=== PATIENT | female | born 1970 | race Caucasian/White ===

== ENCOUNTER → 2022-09-28 | Outpatient (CLI) | payer OTHER ==
--- NOTE | 2022-09-29 10:58 | PE ---
EXAMINATION TYPE: PET CT fusion skull to thigh DATE OF EXAM: 09/28/2022 COMPARISON: Outside Low-dose lung screening CT October 03, 2021 HISTORY: Solitary pulmonary nodule, abnormal CT. TECHNIQUE: Following the intravenous administration of 11.25 mCi of F-18 FDG, whole body images are performed from the skull base to the midthigh. Images are reviewed on the computer in the coronal, a xial, and sagittal planes. Reconstructed rotating images are created on independent workstation and reviewed on the computer. A localization and attenuation correction CT is performed in conjunction with the PET scan. Blood glucose level equals 137 SCAN: Initial Scan FINDINGS: SKULL BASE AND NECK: No areas of abnormal hypermetabolic uptake. CHEST, MEDIASTINUM, AND HILAR REGION: Mild to moderate underlying emphysematous change redemonstrated with central moderate parenchymal fibrosis redemonstrated. No hypermetabolic pulmonary nodules or ma sses. There is 1.1 x 0.9 cm anterior left mid lung nodule or nodular scarring axial image 73 there is ametabolic. ABDOMEN AND PELVIS: No hypermetabolic adrenal masses. Normal excretion. No areas of abnormal hypermet abolic uptake. OSSEOUS STRUCTURES: No areas of abnormal hypermetabolic uptake. OTHER CT: Nasal septum is deviated to the right of midline. There is three-vessel moderate to severe coronary artery calcification and/or stents redemonstrated. Mild cardiomegaly is present. Prominent p ulmonary arteries consistent with underlying pulmonary artery hypertension are noted. Uterus surgically absent or markedly atrophic. IMPRESSION: No suspicious hypermetabolic pulmonary nodules or masses. Emphysematous and parenchymal f ibrotic changes in the lungs are present.
== END | disposition home or self-care (01) ==
LOC: RADPETMAIN 11:56
PROVIDERS: ATTEND Internal Medicine Critical Care Medicine
DX: J43.9 Emphysema, unspecified (principal); J84.10 Pulmonary fibrosis, unspecified; R91.1 Solitary pulmonary nodule
CPT/HCPCS: 78815; A9552

== ENCOUNTER → 2024-04-03 | Outpatient (CLI) | payer OTHER ==
--- NOTE | 2024-04-03 13:13 | XR ---
EXAMINATION TYPE: XR wrist complete RT DATE OF EXAM: 04/03/2024 CLINICAL HISTORY: pain TECHNIQUE: Frontal, lateral and oblique images of the right wrist are obtained. COMPARISON: None. FINDINGS: Distal radial fracture with intra-articular extension and displacement of 2 mm. Soft tissue swelling noted. No additional fractures seen. The joint spaces appear within normal limits. IMPRESSION: Mildly comminuted distal radial fracture. [facility], , 04/03/2024 1:10 PM
== END | disposition home or self-care (01) ==
LOC: RADXRMAIN 12:51
PROVIDERS: ATTEND Family Medicine
DX: S52.591A Other fractures of lower end of right radius, initial encounter for closed fracture (principal); W19.XXXA Unspecified fall, initial encounter; T14.90XA Injury, unspecified, initial encounter

== ENCOUNTER 2024-05-07 17:31 | Inpatient (IN) | payer OTHER ==
--- NOTE | 2024-05-07 18:00 | ED ---
General Adult HPI - General Chief complaint: Chest Pain Stated complaint: jaw pain Time Seen by Provider: 05/07/24 17:35 Source: patient, RN notes reviewed, old records reviewed Mode of arrival: ambulatory Limitations: no limitations - History of Present Illness Initial comments: This is a 54-year-old female she states 4 days ago she started having inte rmittent jaw pain and neck pain which is very consistent with the pain she has had in her previous heart attacks. Patient states it comes and lasts anywhere from 5 to 10 minutes to half an hour. Patient denies shortness of breath. Patient states there is a little bit of anterior chest discomfort. Patient states currently she feels only very minimal jaw pain. Patient denies any diaphoretic episode. Patient has nausea vomiting diarrhea. Patient has any fever chills or cough. Patient has any back pain. - Related Data Allergies Allergy/AdvReac Type Severity Reaction Status Date / Time cephalexin [From Keflex] Allergy Anaphylaxis Verified 05/07/24 17:36 Iodinated Contrast Media Allergy Anaphylaxis Verified 05/07/24 17:36 Review of Systems ROS Statement: Those systems with pertinent positive or pertinent negative responses have been documented in the HPI. ROS Other: All systems not noted in ROS Statement are negative. Past Medical History Past Medical History: Diabetes Mellitus, Hypertension History of Any Multi-Drug Resistant Organisms: None Reported Past Surgical History: Ear Surgery, Hysterectomy Additional Past Surgical History / Comment(s): 2 cardiac stents Past Psychological History: No Psychological Hx Reported Smoking Status: Current every day smoker Past Alcohol Use History: None Reported Past Drug Use History: None Reported, Marijuana General Exam - General Exam Comments Initial Comments: GENERAL: Patient is well-developed and well-nourished. Patient is nontoxic and well- hydrated and is in mild distress. ENT: Neck is soft and supple. No significant lymphadenopathy is noted. Oropharynx is clear. Moist mucous membranes. Neck has full range of motion without eliciting any pain. EYES: The sclera were anicteric and conjunctiva were pink and moist. Extraocular movements were intact and pupils were equal round and reactive to light. Eyelids were unremarkable. PULMONARY: Unlabored respirations. Good breath sounds bilaterally. No audible rales rho nchi or wheezing was noted. CARDIOVASCULAR: There is a regular rate and rhythm without any murmurs gallops or rubs. ABDOMEN: Soft and nontender with normal bowel sounds. SKIN: Skin is clear with no lesions or rashes and otherwise unremarkable. NEUROLOGIC: Patient is alert and oriented x3. Cranial nerves II through XII are grossly intact. Motor and sensory are also intact. Normal speech, volume and content. Symmetrical smile. MUSCULOSKELETAL: Normal extremities with adequate strength and full range of motion. LYMPHATICS: No significant lymphadenopathy is noted PSYCHIATRIC: Normal psychiatric evaluation. Limitations: no limitations Course Vital Signs 05/07/24 05/07/24 05/07/24 17:32 17:35 18:29 Temperature 98.7 F Pulse Rate 101 H 71 88 Respiratory 20 17 17 Rate Blood Pressure 159/87 123/71 120/81 O2 Sat by Pulse 97 94 L 93 L Oximetry Medical Decision Making - Medical Decision Making EKG is interpreted by myself. EKG shows sinus rhythm at 92 bpm CO interval 156 QRS is 101 QT interval is 349 QTc is 398. Patient's EKG shows no ST segment ovation or depression. Was pt. sent in by a medical professional or institution (, PA, CIGARET[employer] MACHINES MECHANIC, urgent care, hospital, or penitentiary...) When possible be specific @ -No Did you speak to anyone other than the patient for history (EMS, parent, family, police, friend...)? What history was obtained from this source @ -No Did you review nursing and triage notes (agree or disagree)? Why? @ -I reviewed and agree with nursing and triage notes Were old charts reviewed (outside hosp., previous admission, EMS record, old EKG, old radiological studies, urgent care reports/EKG's, penitentiary records)? Report findings @ -No old charts were reviewed Differential Diagnosis? @ -Differential Chest Pain: Stable Angina, Unstable Angina, STEMI, NSTEMI Aortic Dissection, Pneumothorax, M usculoskeletal, Esophageal Spasm GERD, Cholecystitis, Pancreatitis, Zoster, this is not meant to be an all-inclusive list. EKG interpreted by me (3pts min.). @ -As above X-rays interpreted by me (1pt min.). @ -Chest x-ray shows no acute normality CT interpreted by me (1pt min.). @ -None done U/S interpreted by me (1pt. min.). @ -None done What testing was considered but not performed or refused? (CT, X-rays, U/S, labs)? Why? @ -None What meds were considered but not given or refused? Why? @ -None Did you discuss the management of the patient with other professionals (professionals i.e. DrJf, PA, CIGARET[employer] MACH[employer] MECHANIC, lab, RT, psych nurse, social worker clinical, inspector shells, teacher, aoc airspace control officer, major case detective)? Give summary @ -I spoke with Dr. Edmondson he agreed to admit the patient admit the patient Was smoking cessation discussed for >3mins.? @ -No Was critical care preformed (if so, how long)? @ -35 minutes Were there social determinants of health that impacted care today? How? (Homelessness, low income, unemployed, alcoholism, drug addiction, transportation, low edu. Level, literacy, decrease access to med. care, group home, rehab)? @ -No Was there de-escalation of care discussed even if they declined (Discuss DNR or withdrawal of care, Hospice)? DNR status @ -No What co-morbidities impacted this encounter? (DM, HTN, Smoking, COPD, CAD, Cancer, CVA, ARF, Chemo, Hep., AIDS, mental health diagnosis, sleep apnea, morbid obesity)? @ -None Was patient admitted / discharged? Hospital course, mention meds given and route, prescriptions, significant lab abnormalities, going to OR and other pertinent info. @ -Patient was not having chest pain when I admitted her labs showed an elevated troponin. Started patient on heparin. I spoke with Dr. Edmondson he agreed admit the patient admit the patient I consulted cardiology Undiagnosed new problem with uncertain prognosis? @ -No Drug Therapy requiring intensive monitoring for toxicity (Heparin, Nitro, Insulin, Cardizem)? @ -No Were any procedures done? @ -No Diagnosis/symptom? @ -Unstable angina Acute, or Chronic, or Acute on Chronic? @ -Acute Uncomplicated (without systemic symptoms) or Complicated (systemic symptoms)? @ -Complicated Side effects of treatment? @ -No Exacerbation, Progression, or Severe Exacerbation? @ -No Poses a threat to life or bodily function? How? (Chest pain, USA, GA, pneumonia, PE, COPD, DKA, ARF, appy, cholecystitis, CVA, Diverticulitis, Homicidal, Suicidal, threat to staff... and all critical care pts) @ -This can lead to an GA and endorgan dysfunction - Lab Data Result diagrams: 05/07/24 17:48 11/07/24 17:48 Lab Results 05/07/24 05/07/24 05/07/24 Range/Units 17:48 17:48 17:48 WBC 12.1 H (3.8-10.6) k/uL RBC 5.54 H (3.80-5.40) m/uL Hgb 15.6 (11.4-16.0) gm/dL Hct 49.3 H (34.0-46.0) % MCV 89.1 (80.0-100.0) fL MCH 28.1 (25.0-35.0) pg MCHC 31.6 (31.0-37.0) g/dL RDW 14.5 (11.5-15.5) % Plt Count 176 (150-450) k/uL MPV 7.5 Neutrophils % 67 % Lymphocytes % 26 % Monocytes % 5 % Eosinophils % 1 % Basophils % 0 % Neutrophils # 8.2 H (1.3-7.7) k/uL Lymphocytes # 3.1 (1.0-4.8) k/uL Monocytes # 0.5 (0-1.0) k/uL Eosinophils # 0.2 (0-0.7) k/uL Basophils # 0.0 (0-0.2) k/uL Hypochromasia Slight PT 10.3 (10.0-12.5) sec INR 0.9 (<1.2) APTT 28.3 (22.0-30.0) sec Sodium 139 (137-145) mmol/L Potassium 3.7 (3.5-5.1) mmol/L Chloride 105 (98-107) mmol/L Carbon Dioxide 28 (22-30) mmol/L Anion Gap 6 mmol/L BUN 18 H (7-17) mg/dL Creatinine 0.68 (0.52-1.04) mg/dL Est GFR (CKD-EPI)AfAm >90 (>60 ml/min/1.73 sqM) Est GFR (CKD-EPI)NonAf >90 (>60 ml/min/1.73 sqM) Glucose 104 H (74-99) mg/dL Calcium 9.3 (8.4-10.2) mg/dL Magnesium 2.2 (1.6-2.3) mg/dL Total Bilirubin 0.7 (0.2-1.3) mg/dL AST 25 (14-36) U/L ALT 21 (4-34) U/L Alkaline Phosphatase 100 (38-126) U/L Troponin I (0.000-0.034) ng/mL Total Protein 6.7 (6.3-8.2) g/dL Albumin 4.1 (3.5-5.0) g/dL 05/07/24 Range/Units 17:48 WBC (3.8-10.6) k/uL RBC (3.80-5.40) m/uL Hgb (11.4-16.0) gm/dL Hct (34.0-46.0) % MCV (80.0-100.0) fL MCH (25.0-35.0) pg MCHC (31.0-37.0) g/dL RDW (11.5-15.5) % Plt Count (150-450) k/uL MPV Neutrophils % % Lymphocytes % % Monocytes % % Eosinophils % % Basophils % % Neutrophils # (1.3-7.7) k/uL Lymphocytes # (1.0-4.8) k/uL Monocytes # (0-1.0) k/uL Eosinophils # (0-0.7) k/uL Basophils # (0-0.2) k/uL Hypochromasia PT (10.0-12.5) sec INR (<1.2) APTT (22.0-30.0) sec Sodium (137-145) mmol/L Potassium (3.5-5.1) mmol/L Chloride (98-107) mmol/L Carbon Dioxide (22-30) mmol/L Anion Gap mmol/L BUN (7-17) mg/dL Creatinine (0.52-1.04) mg/dL Est GFR (CKD-EPI)AfAm (>60 ml/min/1.73 sqM) Est GFR (CKD-EPI)NonAf (>60 ml/min/1.73 sqM) Glucose (74-99) mg/dL Calcium (8.4-10.2) mg/dL Magnesium (1.6-2.3) mg/dL Total Bilirubin (0.2-1.3) mg/dL AST (14-36) U/L ALT (4-34) U/L Alkaline Phosphatase (38-126) U/L Troponin I 0.107 H* (0.000-0.034) ng/mL Total Protein (6.3-8.2) g/dL Albumin (3.5-5.0) g/dL Critical Care Time Critical Care Time: Yes Total Critical Care Time: 35 Disposition Clinical Impression: Unstable angina pectoris Disposition: ADMITTED IP TO THIS HOSP Referrals: Justin Edmondson MD [Primary Care Provider] - 1-2 days Time of Disposition: 19:32
[2024-05-07] MEDS: ASPIRIN 81 MG PO STA (18:02)
[2024-05-07] MEDS: NITROGLYCERIN OINT 1 INCH/GM PACKET TOPICAL STA (18:02)
[2024-05-07 18:14] LABS: Basophils % (A) 0 %; Eosinophils # (A) 0.2 k/uL (0-0.7); Eosinophils % (A) 1 %; HCT 49.3 % (34.0-46.0); HGB 15.6 gm/dL (11.4-16.0); Hypochromasia Slight; Lymphocytes # (A) 3.1 k/uL (1.0-4.8); Lymphocytes % (A) 26 %; MCH 28.1 pg (25.0-35.0); MCHC 31.6 g/dL (31.0-37.0); MCV 89.1 fL (80.0-100.0); Mean Platelet Volume 7.5; Monocytes # (A) 0.5 k/uL (0-1.0); Monocytes % (A) 5 %; Neutrophils # (A) 8.2 k/uL (1.3-7.7); Neutrophils % (A) 67 %; Platelet Count 176 k/uL (150-450); RBC 5.54 m/uL (3.80-5.40); RDW 14.5 % (11.5-15.5); WBC 12.1 k/uL (3.8-10.6)
--- NOTE | 2024-05-07 18:25 | XR ---
EXAMINATION TYPE: XR chest 2V DATE OF EXAM: 05/07/2024 6:13 PM COMPARISON: None. CLINICAL INDICATION: Female, 54 years old with history of Chest Pain, TECHNIQUE: XR chest 2V view(s) obtained. FINDINGS: The heart size is normal. The pulmonary vasculature is somewhat prominent. Mild bibasilar infiltrates are present. Correlate for atelectasis or pneumonia. Atypical pulmonary ed loren could be considered. IMPRESSION: 1. Mild bibasilar infiltrates. Correlate for atelectasis or pneumonia. Pulmonary edema could be consi dered. [facility], , 05/07/2024 6:22 PM
[2024-05-07 18:27] LABS: ALT 21 U/L (4-34); AST 25 U/L (14-36); African American GFR (CKD) >90 (>60 ml/min/1.73 sqM); Albumin 4.1 g/dL (3.5-5.0); Alkaline Phosphatase 100 U/L (38-126); Anion Gap 6 mmol/L; Blood Urea Nitrogen 18 mg/dL (7-17); Calcium 9.3 mg/dL (8.4-10.2); Carbon Dioxide 28 mmol/L (22-30); Chloride 105 mmol/L (98-107); Glucose 104 mg/dL (74-99); Magnesium 2.2 mg/dL (1.6-2.3); Non-African American GFR(CKD) >90 (>60 ml/min/1.73 sqM); Potassium 3.7 mmol/L (3.5-5.1); Sodium 139 mmol/L (137-145); Total Bilirubin 0.7 mg/dL (0.2-1.3); Total Protein 6.7 g/dL (6.3-8.2)
[2024-05-07 18:29] LABS: INR 0.9 (<1.2); Partial Thromboplastin Time 28.3 sec (22.0-30.0); Prothrombin Time 10.3 sec (10.0-12.5)
[2024-05-07] MEDS ORDERED: NITROGLYCERIN SL TABS 0.4 MG TAB SUBLINGUAL PRN (19:33)
[2024-05-07] MEDS: HEPARIN SOD,PORK IN 0.45% NACL 25,000 UNIT in 0.45% NACL 1 250ML.BAG IV SCH (19:38)
[2024-05-07] MEDS: HEPARIN SODIUM 1,000 UN/ML (10ML VL) IV ONE (19:42)
[2024-05-07] MEDS: NITROGLYCERIN OINT 1 INCH/GM PACKET TOPICAL SCH (23:26)
[2024-05-08] MEDS ORDERED: ALPRAZolam 0.25 MG TAB PO PRN (08:28)
[2024-05-08] MEDS ORDERED: ALPRAZolam 0.5 MG TAB PO PRN (08:28)
[2024-05-08] MEDS ORDERED: NITROGLYCERIN SL TABS 0.4 MG TAB SUBLINGUAL PRN (08:28)
[2024-05-08] MEDS ORDERED: ASPIRIN 325 MG TAB PO SCH (09:00)
[2024-05-08] MEDS: ASPIRIN 325 MG TAB PO STA (09:19)
[2024-05-08] MEDS: METOPROLOL TARTRATE 25 MG TAB PO SCH (09:19)
[2024-05-08] MEDS: ATORVASTATIN 80 MG TAB PO STA (09:19)
[2024-05-08] MEDS: ASPIRIN 81 MG PO SCH (09:20)
[2024-05-08] MEDS: SODIUM CHLORIDE 0.9% 1,000 ML in EMPTY BAG 1 BAG IV SCH (09:22)
[2024-05-08 09:38] LABS: Chol/HDL Ratio 1.85 Ratio; LDL Cholesterol,Calculated 43.6 mg/dL (0.0-131.0); VLDL Calculation 13.72 mg/dL (5.00-40.00)
[2024-05-08] MEDS: ISOSORBIDE MONONITRATE ER 30 MG TAB.ER.24H PO SCH (09:45)
--- NOTE | 2024-05-08 11:33 | P.CRDCN ---
History of Present Illness Consult date: 05/08/24 Reason for Consult (text): Unstable angina History of present illness: This is a 54-year-old female patient of Dr. Grove with past medical history of NSTEMI in 2017 status post left heart cath and MACKENZIE of the right coronary artery, history of hypertension, hyperlipidemia, diabetes mellitus type 2, family history of premature coronary artery disease, tobacco use and dependence. Patient states that she did develop pain in her mouth and felt like it was tightening like her teeth are going to pop out. She states she had the same symptoms when she had the NSTEMI in 2017. She continues to smoke 1 pack/day. Blood pressure 116/80, heart rate 95-109. Discussed results of testing thus far with the patient and recommendations for cardiac catheterization and she is agreeable to move forward with this. Also discussed smoking cessation with the patient and she states that she wants to quit smoking. EKG: Sinus rhythm with no acute changes Chest x-ray: Mild bibasilar infiltrates. Correlate for atelectasis or pneumonia. Pulmonary edema could be considered. Laboratory studies: WBC 12.1, hemoglobin 15.6, potassium 3.7, creatinine 0.68, BUN 18. Troponins 0.107, 0.129, 0.148. Triglycerides 68, cholesterol 125, LDL 43, HDL 67. Home cardiac medications: Aspirin 81 mg daily, Imdur 30 mg daily, Lopressor 25 mg twice daily, Crestor 40 mg at bedtime. Review Of Systems: At the time of my exam: CONSTITUTIONAL: Denies fever or chills. HEENT: Denies blurred vision, vision changes, or eye pain. Denies hemoptysis CARDIOVASCULAR: Denies chest pain. Denies orthopnea. Denies PND. Denies palpitations RESPIRATORY: Denies shortness of breath. GASTROINTESTINAL: Denies abdominal pain. Denies nausea or vomiting. HEMATOLOGIC: Denies bleeding disorders. GENITOURINARY: Denies any blood in urine. SKIN: Denies puritis. Denies rash. Physical examination: Gen: This is a 54-year-old obese female in no acute distress VS: reviewed HEENT: Head is atraumatic, normocephalic. Pupils equal, round. Sclerae is anicteric. NECK: Supple. No JVD. LUNGS: Clear to auscultation. No wheezes or rhonchi. No intercostal retractions. HEART: Regular rate and rhythm. No murmur. ABDOMEN: Soft No tenderness. EXTREMITIES: No pedal edema. No calf tenderness. NEUROLOGICAL: Patient is awake, alert and oriented x3. Assessment: NSTEMI History of coronary artery disease with MACKENZIE of the right coronary artery Hypertension Hyperlipidemia Diabetes mellitus type 2 Family history of premature coronary artery disease Tobacco use and dependence Plan: Resume patient's home cardiac medications Schedule patient for cardiac catheterization today Continue heparin drip N.p.o. status Premedicate for iodine contrast allergy with Solu-Medrol 60 mg IV, Benadryl 50 mg IV, Pepcid 40 mg IV Obtain 2-D echocardiogram and Doppler study to assess cardiac structure and fun ction Further recommendations to follow based upon clinical course Smoking cessation. Patient will be provided the [employer] quit line information at the time of discharge. Patient will follow-up with her primary freight brakeman, Dr. Grove, at the time of discharge. Thank you kindly for this consultation. Nurse practitioner note has been reviewed, I agree with documented findings and plan of care. Patient was seen and examined. Past Medical History Past Medical History: Diabetes Mellitus, Hypertension History of Any Multi-Drug Resistant Organisms: None Reported Past Surgical History: Ear Surgery, Hysterectomy Additional Past Surgical History / Comment(s): 2 cardiac stents Past Psychological History: No Psychological Hx Reported Smoking Status: Current every day smoker Past Alcohol Use History: None Reported Past Drug Use History: None Reported, Marijuana Medications and Allergies Home Medications Medication Instructions Recorded Confirmed Type Albuterol Inhaler [Ventolin Hfa 2 puff INHALATION RT-Q4H PRN 05/07/24 05/07/24 History Inhaler] Aspirin EC [Ecotrin Low Dose] 81 mg PO DAILY 05/07/24 05/07/24 History Budesonide/Glycopyr/Formoterol 2 puff INHALATION RT-BID 05/07/24 05/07/24 History [Breztri Aerosphere Inhaler] Dulaglutide [Trulicity] 0.75 mg SQ TH 05/07/24 05/07/24 History Ergocalciferol (Vitamin D2) 1,250 mcg PO Q30D 05/07/24 05/07/24 History [Drisdol (50,000 Iu)] Glimepiride 4 mg PO DAILY@1600 05/07/24 05/07/24 History HYDROcodone/APAP 5-325MG [[place] 1 tab PO QID PRN 05/07/24 05/07/24 History 5-325] Isosorbide Mononitrate ER [Imdur] 30 mg PO DAILY 05/07/24 05/07/24 History Metoprolol Tartrate [Lopressor] 25 mg PO BID 05/07/24 05/07/24 History Ondansetron [Zofran] 4 mg PO BID PRN 05/07/24 05/07/24 History Rosuvastatin Calcium [Crestor] 40 mg PO HS 05/07/24 05/07/24 History metFORMIN HCL 500 mg PO DAILY@1600 05/07/24 05/07/24 History Allergies Allergy/AdvReac Type Severity Reaction Status Date / Time cephalexin [From Keflex] Allergy Anaphylaxis Verified 05/07/24 20:01 Iodinated Contrast Media Allergy Anaphylaxis Verified 05/07/24 20:01 Physical Exam Vitals: Vital Signs Temp Pulse Resp BP Pulse Ox 05/08/24 07:19 97.6 F 109 H 18 116/80 92 L 05/08/24 05:13 98.1 F 95 16 117/75 94 L 05/08/24 02:38 98.2 F 82 16 129/74 95 05/08/24 00:37 78 16 129/78 96 05/07/24 23:24 86 18 126/76 89 L 05/07/24 22:52 82 20 128/89 90 L 05/07/24 18:29 88 17 120/81 93 L 05/07/24 17:35 71 17 123/71 94 L 05/07/24 17:32 98.7 F 101 H 20 159/87 97 Intake and Output 05/07/24 05/08/24 05/08/24 22:59 06:59 14:59 Intake Total 61.596 Balance 61.596 Intake: Intake, IV Titration 61.596 Amount Heparin Sod,Pork in 0.45% 61.596 NaCl 25,000 unit In 0.45 % NaCl 1 250ml.bag @ 12 UNITS/KG/HR 8.927 mls/hr IV .Q24H [facility] Rx#: [id number] Other: Weight 74.389 kg Results 05/07/24 17:48 05/07/24 17:48 Cardiac Enzymes 11/01/2105/07/24 05/07/24 Range/Units 17:48 17:48 21:11 AST 25 (14-36) U/L Troponin I 0.107 H* 0.129 H* (0.000-0.034) ng/mL 05/08/24 Range/Units 01:56 AST (14-36) U/L Troponin I 0.148 H* (0.000-0.034) ng/mL Coagulation 05/07/24 05/08/24 Range/Units 17:48 01:56 PT 10.3 (10.0-12.5) sec APTT 28.3 69.8 H (22.0-30.0) sec CBC 05/07/24 Range/Units 17:48 WBC 12.1 H (3.8-10.6) k/uL RBC 5.54 H (3.80-5.40) m/uL Hgb 15.6 (11.4-16.0) gm/dL Hct 49.3 H (34.0-46.0) % Plt Count 176 (150-450) k/uL Comprehensive Metabolic Panel 05/07/24 Range/Units 17:48 Sodium 139 (137-145) mmol/L Potassium 3.7 (3.5-5.1) mmol/L Chloride 105 (98-107) mmol/L Carbon Dioxide 28 (22-30) mmol/L BUN 18 H (7-17) mg/dL Creatinine 0.68 (0.52-1.04) mg/dL Glucose 104 H (74-99) mg/dL Calcium 9.3 (8.4-10.2) mg/dL AST 25 (14-36) U/L ALT 21 (4-34) U/L Alkaline Phosphatase 100 (38-126) U/L Total Protein 6.7 (6.3-8.2) g/dL Albumin 4.1 (3.5-5.0) g/dL Current Medications Generic Name Dose Route Start Last Admin Trade Name Freq PRN Reason Stop Dose Admin Aspirin 325 mg 05/08/24 09:00 Aspirin 325 Mg Tab PO DAILY TESS Heparin Sodium/Sodium Chloride 250 mls @ 8.927 mls/hr 05/07/24 19:15 05/08/24 02:32 25,000 unit/ Sodium Chloride IV 10 units/kg/hr .Q24H TESS 7.439 mls/hr Titration Protocol 12 UNITS/KG/HR Nitroglycerin 0.4 mg 05/07/24 19:33 Nitroglycerin Sl Tabs 0.4 Mg Tab SUBLINGUAL Q5M PRN Chest Pain Nitroglycerin 1 inch 05/08/24 00:00 05/08/24 05:52 Nitroglycerin Oint 1 Inch/Gm Packet TOPICAL 1 inch Q6HR [facility] Administration Intake and Output 05/07/24 05/08/24 05/08/24 22:59 06:59 14:59 Intake Total 61.596 Balance 61.596 Intake: Intake, IV Titration 61.596 Amount Heparin Sod,Pork in 0.45% 61.596 NaCl 25,000 unit In 0.45 % NaCl 1 250ml.bag @ 12 UNITS/KG/HR 8.927 mls/hr IV .Q24H [facility] Rx#: [id number] Other: Weight 74.389 kg 05/07/24 17:48 05/07/24 17:48
[2024-05-08] MEDS: FAMOTIDINE 20 MG/2 ML VIAL IV STA (12:18)
[2024-05-08] MEDS: methylPREDNISolone SOD SUCCI 125 MG/2 ML VIAL IV STA (12:23)
[2024-05-08] MEDS: diphenhydrAMINE 50 MG/ML 1 ML VIAL IVP STA (12:25)
[2024-05-08] MEDS: LIDOCAINE 1% INJ 10MG/ML (10 ML MDV) SQ ONE (13:38)
[2024-05-08] MEDS: MIDAZOLAM 2 MG/2 ML VIAL IVP ONE (13:39)
[2024-05-08] MEDS: fentaNYL (PF) 50 MCG/1 ML VIAL IVP ONE (13:39)
[2024-05-08] MEDS: VERAPAMIL SYRINGE (5 MG/10 ML) INTRAARTER ONE (13:39)
[2024-05-08] MEDS: HEPARIN SODIUM,PORCINE 10,000 UNIT in SODIUM CHLORIDE 0.9% 1,000 ML IRRIGATION PRN (13:43)
[2024-05-08] MEDS: HEPARIN SODIUM,PORCINE (1 ML) 2,500 UNIT in SODIUM CHLORIDE 0.9% 250 ML IRRIGATION PRN (13:43)
[2024-05-08] MEDS: HEPARIN SODIUM 1,000 UN/ML (10ML VL) IVP ONE (13:46)
[2024-05-08] MEDS ORDERED: RX INFO: IV CONTRAST WAS GIVEN 1 EACH MISC MISCELLANE PRN (14:08)
[2024-05-08] MEDS: IOPAMIDOL-370 100ML BTL INJ ONE (14:16)
--- NOTE | 2024-05-08 14:18 | P.CARDCATH ---
Date of Procedure: 05/08/24 Description of Procedure: DIAGNOSTIC CORONARY ANGIOGRAPHY and LEFT HEART CATH REPORT PROCEDURES PERFORMED: Left heart catheterization Selective coronary angiography Moderate conscious sedation 13 mins [Ultrasound assisted] Right radial access INDICATION: NSTEMI 54-year-old female with past medical history of PCI to proximal LAD and mid RCA by Dr. Frankie Moctezuma at [facility] in 2017 for NSTEMI. This time she presented to the hospital because of neck pain jaw pain along with evidence of elevated troponins. Her ECG did not show any ST elevations. 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 Patient does report that she is still smoking. She is compliant to her other cardiac medication including aspirin Lipitor. CONSENT: I have explained the procedural steps of above-mentioned procedures in layman's terms to the patient. I discussed the risks (including but not limited to stroke, emergent vascular or cardiac surgery or ), benefits and alternative therapies for the above-mentioned procedure. I discussed the risks of sedation/analgesia and blood product administration (if indicated). The patient has indicated understanding and acceptance of these risks. She reports that she has allergy to IV contrast in form of anaphylaxis. For this we gave her 60 mg of Solu-Medrol, 50 mg of Benadryl, and 40 mg of Pepcid Conscious Sedation: Patient's ECG, heart rate, blood pressure, pulse oximetry were monitored throughout the duration of procedure under my direct supervision. 1 mg Versed and [50] mcg Fentanyl were used for induction of moderate conscious sedation. Total duration of moderate concious sedation [25] minutes. PROCEDURE: After explaining the risks, benefits and alternatives of the above mentioned p rocedures in detail to the patient, informed consent was obtained. Patient was taken to the catheterization lab, prepped and draped in usual sterile fashion using universal precuations. Ultrasound was used to identify the radial artery. 1% lidocaine was infiltrated over the right radial artery. A 6-Grenadian sheath was placed and secured in the right radial artery using modified Seldinger technique. The sheath was flushed and 5 mg verapamil was administered intra-arterially. J tipped wire was advanced under fluoroscopic guidance. Once the wire tip reached aortic root [5000] units of IV heparin was given. Over the wire JR4 diagnostic catheter was advanced. The wire in place the catheter was manipulated to cross the aortic valve and entered into LV under fluoroscopy guidance. The wire was removed and the catheter was flushed. LV pressures were obtained and pullback was performed under fluoroscopy. Catheter was manipulated to selectively engage the right coronary ostium. Right coronary angiography was performed in different angiographic projections. The JR4 diagnostic catheter was exchanged for a JL 3.5 diagnostic catheter over the J-wire. The wire was removed, catheter was flushed and manipulated under fluoroscopy to selectively engaged the left coronary ostium. Left coronary angioplasty was performed in different angiographic projections. Catheter was removed over the wire. Radial sheath was flushed. The right radial sheath was removed and a TR band was placed with excellent patent hemostasis was achieved. The patient tolerated the procedure well. Patient was transported back to the post catheterization holding area in stable condition. Angiographic images were reviewed in detail. Technical data Contrast used 55 mL of Isovue Complications: None Blood loss: Less than 15 mL Total radiation 188 mGy Fluoroscopy time 5 minutes Catheter used, 5 Grenadian JL 3.5, 5 Grenadian JR4 HEMODYNAMICS: Aortic Pressure: 100/70 mmHg. LV pressure: 100/10 mmHg. LVEDP 15 mmHg. There was no significant gradient across the aortic valve. SELECTIVE CORONARY ARTERIOGRAPHY: LEFT MAIN: Left main is not present. LAD and LCx have separate ostium. LEFT ANTERIOR DESCENDING CORONARY ARTERY: Arises directly from aortic root. 20- 30% ostial LAD disease. Proximal LCx has mild mid irregularities otherwise patent. Mid LAD has a prior stent with 30-40 % in-stent stenosis in midportion. There is a jailed diagonal artery which has 40% ostial disease. It is otherwise patent. Distal LAD is otherwise patent. RENE-3 flow in LAD system. LEFT CIRCUMFLEX CORONARY ARTERY: Arises directly from aortic root. Mild luminal regularities. Gives rise to a large OM1 branch. Proximal portion of OM1 branch has 40% diffuse disease. It is otherwise patent. After giving OM1 branch, LCx is medium caliber and has mild irregularities. It gives rise to a distal OM 2 branch which has 30% diffuse luminal irregularities. RIGHT CORONARY ARTERY: Dominant vessel. Arises in the usual fashion. Proximal RCA mild luminal irregularities. Mid RCA at the junction of the RV marginal branch has 30 to 40% disease. Midportion of RCA has a prior stent with 20% in- stent disease. It is otherwise patent. Distal RCA is patent. Gives rise to PDA and PL branches are patent IMPRESSION: 40% in-stent stenosis of proximal LAD stent, otherwise patent 40% proximal OM1 disease 40% mid RCA disease prior to a patent mid RCA stent. PLAN: Recommend dual antiplatelet therapy with aspirin and Plavix for next 12 months without interruption. Recommend high intensity statin, with cholesterol LDL goal less than 60, low-dose beta-justo, low-dose ARB, Imdur. 125 cc fluids for 4 hours Smoking cessation. Follow-up in the office in 1-2 weeks after d/c Performing Physician Diogenes Ann MD, FACC, RPVI
[2024-05-08] MEDS: LOSARTAN 25 MG TAB PO SCH (15:12)
[2024-05-08] MEDS: CLOPIDOGREL 75 MG TAB PO SCH (15:12)
[2024-05-08] MEDS: SODIUM CHLORIDE 0.9% 1,000 ML IV SCH (15:12)
[2024-05-08] MEDS: NICOTINE 14MG/24HR PATCH TRANSDERM SCH (15:12)
[2024-05-08 16:09] LABS: Glucose,Whole Blood 127 mg/dL (70-110)
--- NOTE | 2024-05-08 16:50 | CA ---
Transthoracic Echo Report Name: Cathie Snow Age: 54 Gender: F : 1970 Exam Date: 05/08/2024 15:22 Exam Location: [facility] Ht (in): 59 Wt (lb): 164 Ordering Physician: Diogenes Ann MD ([id number]) Attending/Referring Phys: Photographic Hand Developer Martha Mora RDCS Procedure CPT: Indications: nstemi Cardiac Hx: Technical Quality: Fair Contrast 1: Total Dose (mL): Contrast 2: Total Dose (mL): MEASUREMENTS (Male / Female) Normal Values 2D ECHO LV Diastolic Diameter PLAX 4.7 cm 4.2 - 5.9 / 3.9 - 5.3 cm LV Systolic Diameter PLAX 3.4 cm IVS Diastolic Thickness 1.2 cm 0.6 - 1.0 / 0.6 - 0.9 cm LVPW Diastolic Thickness 1.2 cm 0.6 - 1.0 / 0.6 - 0.9 cm LV Relative Wall Thickness 0.5 RV Internal Dim ED PLAX 2.1 cm LV Diastolic Volume MOD BP 56.2 cm??? 67 - 155 / 56 - 104 cm??? LV Systolic Volume MOD BP 15.6 cm??? 22 - 58 / 19 - 49 cm??? LV Ejection Fraction MOD BP 72.2 % >= 55 % LV Cardiac Index MOD BP 2147.4 cm???/min???m??? LV Diastolic Volume MOD 4C 62.6 cm??? LV Systolic Volume MOD 4C 16.1 cm??? LV Ejection Fraction MOD 4C 74.3 % LV Cardiac Index MOD 4C 2462.7 cm???/min???m??? LV Diastolic Length 4C 6.1 cm LV Systolic Length 4C 5.3 cm LV Diastolic Volume MOD 2C 47.6 cm??? LV Systolic Volume MOD 2C 14.1 cm??? LV Ejection Fraction MOD 2C 70.5 % LV Cardiac Index MOD 2C 1776.3 cm???/min???m??? LV Diastolic Length 2C 5.8 cm LV Systolic Length 2C 4.9 cm LA Volume 49.6 cm??? 18 - 58 / 22 - 52 cm??? LA Volume Index 27.6 cm???/m??? 16 - 28 cm???/m??? M-MODE Aortic Root Diameter MM 3.1 cm LA Systolic Diameter MM 3.5 cm LA Ao Ratio MM 1.1 AV Cusp Separation MM 1.7 cm DOPPLER MV Area PHT 3.8 cm??? Mitral E Point Velocity 90.9 cm/s Mitral A Point Velocity 100.7 cm/s Mitral E to A Ratio 0.9 MV Deceleration Time 198.1 ms TR Peak Velocity 142.1 cm/s TR Peak Gradient 8.1 mmHg FINDINGS Left Ventricle Left ventricular ejection fraction is estimated at 55-60 %. Mildly increased septal wall thickness. Mildly increased posterior wall thickness. Normal left ventricular wall motion. No obvious regional wall motion abnormalities. Left ventricular cavity size normal. Right Ventricle Normal right ventricular size and function. Right ventricular systolic pressure within normal limits. Right Atrium Normal right atrial size. Left Atrium Normal left atrial size. Mitral Valve Structurally normal mitral valve. Trace mitral regurgitation. No mitral stenosis. Aortic Valve Trileaflet aortic valve. No aortic valve stenosis or regurgitation. Tricuspid Valve Structurally normal tricuspid valve. No tricuspid regurgitation. No tricuspid stenosis. Pulmonic Valve Structurally normal pulmonic valve. Trace to mild pulmonic regurgitation. No pulmonic stenosis. Pericardium No pericardial or pleural effusion. Aorta Normal size aortic root and proximal ascending aorta. CONCLUSIONS Normal LV function Previewed by: Dr. Scotty Davis MD (Electronically Signed) Final Date: 08 May 2024 16:49
[2024-05-08] MEDS ORDERED: ALBUTEROL NEBULIZED 2.5 MG/3 ML INHALATION PRN (19:40)
[2024-05-08 19:51] LABS: Glucose,Whole Blood 435 mg/dL (70-110)
[2024-05-08] MEDS ORDERED: ATORVASTATIN 80 MG TAB PO SCH (21:00)
[2024-05-08] MEDS: SYMBICORT 160-4.5 MCG INHALER INHALATION SCH (21:42)
[2024-05-08] MEDS: ATORVASTATIN 40 MG TAB PO SCH (21:58)
[2024-05-09 04:37] VITALS: PULSE 68
[2024-05-09 06:04] LABS: Glucose,Whole Blood 218 mg/dL (70-110)
[2024-05-09 08:34] VITALS: BP 193/94; RESP 16; TEMP 98.3
[2024-05-09 11:19] LABS: Glucose,Whole Blood 229 mg/dL (70-110)
--- NOTE | 2024-05-11 02:15 | HP ---
HISTORY AND PHYSICAL CHIEF COMPLAINT: Jaw pain. HISTORY OF PRESENT ILLNESS: This is another admission for this 54-year-old female, who presented to the emergency room with aching in the jaw and was found to have an elevated troponin. She denies diaphoresis. She always has shortness of breath and then she has severe COPD. REVIEW OF SYSTEMS: Otherwise unremarkable. She has had no cough, hemoptysis, fever, no chills, etc. Past medical history, family history and personal and social histories are unremarkable. ALLERGIES: She is allergic to statins, GLP-1, tramadol, theophylline, IV contrast dye, and cephalosporins. CURRENT MEDICATIONS: Include metoprolol, isosorbide mononitrate, Trulicity, glimepiride, metformin, Breztri, Crestor, Vicodin as well as Xanax and aspirin. Despite her COPD, she still smokes. PHYSICAL EXAMINATION: VITAL SIGNS: Blood pressure is 129/86 with a pulse of 103, respirations of 38, and she is afebrile. GENERAL: She appeared to be in mild respiratory distress. She is chronically ill in appearance. HEAD, EARS, EYES, NOSE, MOUTH AND THROAT: Unremarkable. CHEST: Demonstrates extremely poor breath sounds with prolonged expiratory phase and wheezing on inspiration and expiration. There are scattered rales throughout. CARDIAC: Demonstrates sinus tachycardia. ABDOMEN: Soft and slightly protuberant. There are no masses. EXTREMITIES: Normal. NEUROLOGICAL: She is intact. She is admitted to the hospital with diagnoses of: 1. Acute coronary syndrome. 2. Chronic obstructive pulmonary disease. 3. Type 2 diabetes mellitus. PLAN: 1. Bed rest. 2. IV fluids. 3. Serial EKGs and enzymes. 4. Consult with Cardiology. MMODL / IJN: [id number] /
--- NOTE | 2024-05-11 05:57 | PN ---
PROGRESS NOTE DATE OF SERVICE: 05/08/2024 CHIEF COMPLAINT: Chest pain. HISTORY OF PRESENT ILLNESS: This lady has been seen by Cardiology and is going to the director of laboratory operations. PHYSICAL EXAMINATION: CHEST: Clear. CARDIAC: Normal. The only abnormality is her poor breath sounds due to her COPD. ABDOMEN: Soft, nontender. IMPRESSION: 1. Acute coronary syndrome. 2. NSTEMI. 3. Chronic obstructive pulmonary disease. 4. Diabetes. PLAN: Cardiac cath today. MMODL / IJN: [id number] /
--- NOTE | 2024-05-11 08:27 | DS ---
DISCHARGE SUMMARY CHIEF COMPLAINT: Chest pain. HISTORY OF PRESENT ILLNESS AND PHYSICAL EXAMINATION: Details of this lady's history and physical can be found in the initial workup. LABORATORY STUDIES: While she is in the hospital, she had laboratory studies, details of which can be found in the laboratory section of her chart. COURSE IN THE HOSPITAL: After admission, she was placed on bedrest and taken to the laborer pipeline where she was found to have no critical lesions. After that, she was stabilized and was felt that she could go home on the and she will follow up in the office in several days. FINAL DIAGNOSIS: 1. Atypical chest pain. 2. Possible pii-HA-[id number] myocardial infarction. 3. Chronic obstructive pulmonary disease. OPERATION: Cardiac cath. CONSULTATION: Cardiology. She is improved. AMANDA / MARC: [id number] /
--- NOTE | 2024-05-11 08:33 | HP ---
HISTORY AND PHYSICAL CHIEF COMPLAINT: Chest pain. HISTORY OF PRESENT ILLNESS: This is another admission for this 54-year-old female, who presented to the emergency room with chest pain. She has a history of severe COPD. She also has a history of coronary artery disease. She still smokes. REVIEW OF SYSTEMS: Unremarkable. She do not have any diaphoresis. Past medical history, family history and personal and social history is otherwise unremarkable. DICTATION ENDS HERE MMODL / IJN: [id number] /
== END 2024-05-09 11:46 | disposition left against medical advice (07) | DRG 190 ==
LOC: EC 17:31 → 3SCARD 19:35
PROVIDERS: ADMIT Family Medicine; ATTEND Family Medicine
PROC: 4A023N7 Measurement of Cardiac Sampling and Pressure, Left Heart, Percutaneous Approach (ICD-10-PCS; principal; 2024-05-08 13:05)
PROC: B2111ZZ Fluoroscopy of Multiple Coronary Arteries using Low Osmolar Contrast (ICD-10-PCS; principal; 2024-05-08 13:05)
DX: I21.4 Non-ST elevation (NSTEMI) myocardial infarction (principal); I25.10 Atherosclerotic heart disease of native coronary artery without angina pectoris; I25.2 Old myocardial infarction; J44.9 Chronic obstructive pulmonary disease, unspecified; T82.855A Stenosis of coronary artery stent, initial encounter; Y83.1 Surgical operation with implant of artificial internal device as the cause of abnormal reaction of the patient, or of later complication, without mention of misadventure at the time of the procedure; R11.2 Nausea with vomiting, unspecified; F17.210 Nicotine dependence, cigarettes, uncomplicated; R19.7 Diarrhea, unspecified; I10 Essential (primary) hypertension; E78.5 Hyperlipidemia, unspecified; E11.9 Type 2 diabetes mellitus without complications; Z79.82 Long term (current) use of aspirin; Z79.84 Long term (current) use of oral hypoglycemic drugs; Z79.899 Other long term (current) drug therapy; Z79.85 Long-term (current) use of injectable non-insulin antidiabetic drugs; Z79.4 Long term (current) use of insulin; Z88.1 Allergy status to other antibiotic agents; Z91.041 Radiographic dye allergy status
CPT/HCPCS: 36415; 71046; 80053; 80061; 83735; 83880; 84484; 85025; 85610; 85730; 93005; 93306; 93458; 94640; 96365; 96366; 96375; 99291

== ENCOUNTER → 2024-05-19 | Outpatient (CLI) | payer OTHER ==
--- NOTE | 2024-05-19 16:50 | CT ---
EXAMINATION TYPE: CT wrist RT wo con DATE OF EXAM: 05/19/2024 4:36 PM COMPARISON: . Extremity radiograph 04/15/2024 CLINICAL INDICATION: Female, 54 years old with history of S52.501A FRACTURE RIGHT DISTAL RADIUS; PHH, right wrist fx, fall TECHNIQUE: Axial images were obtained of the CT wrist RT wo con, Additional coronal and sagittal refo rmatted images and soft tissue and bone window were obtained for review. 3-D reconstruction was creat ed on a separate workstation. Contrast used: mL of , (None if empty) Oral contrast used: (None if empty) CT DLP: 118.1 mGycm, Automated exposure control for dose reduction was used. FINDINGS: Comminuted intra-articular fracture of the distal radius with volar angulation and intra-ar ticular extension. There is displacement of the interarticular fragments at 4 mm.. Mild soft tissue s welling around the wrist and hand. No additional fractures. Mild multifocal osteoarthrosis with joint space tearing osteophyte formation. IMPRESSION: Comminuted intra-articular fracture of the distal radius with mild separation of intra-articular frac ture fragments. No additional fractures identified. [facility], , 05/19/2024 4:48 PM
== END | disposition home or self-care (01) ==
LOC: RADCTMAIN 16:05
PROVIDERS: ATTEND Orthopaedic Surgery
DX: S52.501A Unspecified fracture of the lower end of right radius, initial encounter for closed fracture (principal); S52.571A Other intraarticular fracture of lower end of right radius, initial encounter for closed fracture

== ENCOUNTER → 2024-06-12 | Outpatient (CLI) | payer OTHER ==
--- NOTE | 2024-06-16 22:47 | P.PCN ---
Date of Procedure: 06/12/24 Operative Findings: Home sleep study testing Date of service is 06/12/2024 History This is a 54-year-old female patient with known history of COPD and an FEV1 of 52% of predicted in addition to history of coronary artery disease, hypertension, hyperlipidemia, previous PR, diabetes mellitus type 2, chronic anxiety and acid reflux. The patient reported snoring, sleep fragmentation and chronic hypersomnia and sleepiness. Based on that, a home sleep study was ordered to investigate this patient for obstructive sleep apnea. Pertinent physical findings The patient has a height of 4 feet 11 inches, weight is 164 pounds with a body mass index of 33.1 Technical description The [employer] Apnea[employer] system was used to complete his home sleep study. This is a type III home sleep study evaluation. The total recording duration was 10 hours and 39 minutes. The study started 8;12 PM and ended at 6:52 AM. The study included total of 10 hours and 25 minutes of flow monitoring and 10 hours and 26 minutes of oxygen saturation monitoring and as such this was a adequate study. Results Respiratory analysis showed a total of 48 obstructive apneas and 398 obstructive hypopneas. The resulting AHI was 62.8 and the disease was worsened in supine body position with an AHI of 62.7 while being supine. This is again consistent with severe NAMAN Oxygenation analysis The patient encountered significant nocturnal oxygen desaturation. The baseline pulse ox while awake was 93%. Average pulse ox during sleep was 88%. This patient spent approximately 4 hours and 32 minutes of the sleep time below pulse ox of 89% and the patient's minimum pulse ox was 54% Cardiac summary Average heart rate was 70 with a minimum heart rate of 53 and a maximum heart rate of 91 Assessment Severe NAMAN with an AHI of 42.8, worsening supine body position Severe nocturnal oxygen desaturation with a minimum pulse ox of 54% Obesity with a BMI of 33.1 Chronic hypersomnia Multiple comorbidities as mentioned above including CAD, COPD, hypertension, hyperlipidemia, diabetes mellitus type 2 Plan This is a case of severe symptomatic obstructive sleep apnea, positional, worse in the supine body position Patient will be encouraged to lose weight and sleep on her side Patient will be encouraged to maintain good sleep hygiene principles Patient will be encouraged to maintain regular sleep schedule The patient would benefit from CPAP therapy and the patient will be asked to come back to the sleep center to undergo a CPAP titration.
== END ==
LOC: 3 N SLEEP 13:05
PROVIDERS: ATTEND Internal Medicine Critical Care Medicine
DX: G47.33 Obstructive sleep apnea (adult) (pediatric) (principal); G47.36 Sleep related hypoventilation in conditions classified elsewhere; E66.9 Obesity, unspecified; Z68.33 Body mass index [BMI] 33.0-33.9, adult; I10 Essential (primary) hypertension; I25.10 Atherosclerotic heart disease of native coronary artery without angina pectoris; E11.9 Type 2 diabetes mellitus without complications; J44.9 Chronic obstructive pulmonary disease, unspecified; E78.5 Hyperlipidemia, unspecified; Z88.1 Allergy status to other antibiotic agents; Z91.041 Radiographic dye allergy status; Z79.02 Long term (current) use of antithrombotics/antiplatelets; Z79.84 Long term (current) use of oral hypoglycemic drugs; Z79.85 Long-term (current) use of injectable non-insulin antidiabetic drugs; Z79.899 Other long term (current) drug therapy

== ENCOUNTER 2024-07-28 03:04 | Emergency (ER) | payer OTHER ==
[2024-07-28] MEDS: SODIUM CHLORIDE 0.9% 500 ML 500 ML IV STA (03:33)
[2024-07-28] MEDS: ONDANSETRON 4 MG/2 ML VIAL IVP STA (03:35)
[2024-07-28] MEDS: HYDROmorphone 0.5 MG/0.5 ML SYRINGE IVP STA ×2 (03:36→05:06)
[2024-07-28 03:53] LABS: ALT 10 U/L (4-34); AST 22 U/L (14-36); African American GFR (CKD) >90 (>60 ml/min/1.73 sqM); Albumin 3.8 g/dL (3.5-5.0); Alkaline Phosphatase 121 U/L (38-126); Anion Gap 7 mmol/L; Blood Urea Nitrogen 10 mg/dL (7-17); Calcium 9.1 mg/dL (8.4-10.2); Carbon Dioxide 34 mmol/L (22-30); Chloride 99 mmol/L (98-107); Lipase 49 U/L (23-300); Non-African American GFR(CKD) >90 (>60 ml/min/1.73 sqM); Potassium 2.9 mmol/L (3.5-5.1); Sodium 140 mmol/L (137-145); Total Bilirubin 0.7 mg/dL (0.2-1.3); Total Protein 6.4 g/dL (6.3-8.2)
[2024-07-28 04:07] LABS: Glucose 44 mg/dL (74-99)
[2024-07-28 04:14] LABS: Glucose,Whole Blood 55 mg/dL (70-110)
[2024-07-28] MEDS: DEXTROSE 50% SYRINGE 50 ML IVP STA (04:22)
[2024-07-28 04:28] LABS: Basophils % (A) 0 %; Eosinophils # (A) 0.1 k/uL (0-0.7); Eosinophils % (A) 1 %; HCT 42.5 % (34.0-46.0); HGB 14.1 gm/dL (11.4-16.0); Lymphocytes # (A) 1.9 k/uL (1.0-4.8); Lymphocytes % (A) 17 %; MCH 28.9 pg (25.0-35.0); MCHC 33.2 g/dL (31.0-37.0); MCV 87.3 fL (80.0-100.0); Mean Platelet Volume 7.8; Monocytes # (A) 0.4 k/uL (0-1.0); Monocytes % (A) 4 %; Neutrophils # (A) 8.6 k/uL (1.3-7.7); Neutrophils % (A) 77 %; Platelet Count 184 k/uL (150-450); RBC 4.87 m/uL (3.80-5.40); RDW 13.6 % (11.5-15.5); WBC 11.2 k/uL (3.8-10.6)
[2024-07-28 04:39] LABS: Glucose,Whole Blood 204 mg/dL (70-110)
--- NOTE | 2024-07-28 04:48 | CT ---
EXAM: CT Abdomen and Pelvis Without Intravenous Contrast CLINICAL HISTORY: ab pain/left flank pain TECHNIQUE: Axial computed tomography images of the abdomen and pelvis without intravenous contrast. CTDI is 10.5 mGy and DLP is 581.1 mGy-cm. This CT exam was performed using one or more of the following dose reduction techniques: automated exposure control, adjustment of the mA and/or kV according to patient size, and/or use of iterative reconstruction technique. Coronal and sagittal reformatted images were created and reviewed. 426 images COMPARISON: PET/CT from 09/28/22 FINDINGS: Lung bases: Small amount of patchy space opacities throughout the visualized lung bases more on the left. ABDOMEN: Liver: Unremarkable. Gallbladder and bile ducts: Unremarkable. No calcified stones. No ductal dilation. Pancreas: Unremarkable. No ductal dilation. Spleen: Unremarkable. No splenomegaly. Adrenals: Unremarkable. No mass. Kidneys and ureters: 4 mm obstructing stone in proximal left ureter, about 3 cm from renal pelvis causes mild hydroureter, hydronephrosis and perinephric stranding. Nonobstructing right renal stones measuring up to 3 mm. Stomach and bowel: Circumferential wall thickening of loops of jejunum in left midabdomen can be due to underdistention. PELVIS: Appendix: Normal. Bladder: Unremarkable. No stones. Reproductive: Unremarkable as visualized. ABDOMEN and PELVIS: Intraperitoneal space: Unremarkable. No free air. No significant fluid collection. Bones/joints: Mild upper lumbar scoliosis convexed to the left. Soft tissues: Small fat-containing bilateral inguinal hernias, larger on the right. 6 x 9 x 11 mm lipoma within the second portion of the duodenum. Vasculature: Moderate amount of atherosclerotic calcifications. No abdominal aortic aneurysm. Lymph nodes: Unremarkable. No enlarged lymph nodes. IMPRESSION: 1. 4 mm obstructing stone in proximal left ureter, about 3 cm from renal pelvis causes mild hydroureter, hydronephrosis and perinephric stranding. 2. Nonobstructing right renal stones measuring up to 3 mm. 3. Circumferential wall thickening of loops of jejunum in left midabdomen can be due to underdistention. Jejunitis is less likely but should also be considered.
[2024-07-28 04:52] LABS: Appearance,Urine Turbid (Clear); Bilirubin,Urine Negative (Negative); Blood,Urine Large (Negative); Calcium Oxalate Crystals,Urine Many /hpf; Color,Urine Red; Glucose,Urine (UA) Negative (Negative); Ketones,Urine Negative (Negative); Leukocyte Esterase,Urine Small (Negative); Mucus,Urine Few /hpf; Nitrite,Urine Negative (Negative); PH, Urine 6.5 (5.0-8.0); Protein,Urine 2+ (Negative); RBC,Urine >182 /hpf (0-5); Urobilinogen,Urine <2.0 mg/dL (<2.0); WBC,Urine 21 /hpf (0-5)
--- NOTE | 2024-07-28 05:01 | ED ---
General Adult HPI - General Chief complaint: Abdominal Pain Stated complaint: Abdominal pain Time Seen by Provider: 07/28/24 03:07 Source: patient, EMS, RN notes reviewed, old records reviewed Mode of arrival: EMS - History of Present Illness Initial comments: 54-year-old female presenting with left-sided abdominal pain and left flank pain. Pain has been intermittent over the past 1 week but more severe today. She has had some associated nausea and vomiting as well as hematuria. Pain is moderate to severe at times. - Related Data Home Medications Medication Instructions Recorded Confirmed Albuterol Inhaler [Ventolin Hfa 2 puff INHALATION RT-Q4H PRN 05/07/24 05/07/24 Inhaler] Aspirin EC [Ecotrin Low Dose] 81 mg PO DAILY 05/07/24 05/07/24 Budesonide/Glycopyr/Formoterol 2 puff INHALATION RT-BID 05/07/24 05/07/24 [Breztri Aerosphere Inhaler] Dulaglutide [Trulicity] 0.75 mg SQ TH 05/07/24 05/07/24 Ergocalciferol (Vitamin D2) 1,250 mcg PO Q30D 05/07/24 05/07/24 [Drisdol (50,000 Iu)] Glimepiride 4 mg PO DAILY@1600 05/07/24 05/07/24 HYDROcodone/APAP 5-325MG [Truchas 1 tab PO QID PRN 05/07/24 05/07/24 5-325] Isosorbide Mononitrate ER [Imdur] 30 mg PO DAILY 05/07/24 05/07/24 Metoprolol Tartrate [Lopressor] 25 mg PO BID 05/07/24 05/07/24 Ondansetron [Zofran] 4 mg PO BID PRN 05/07/24 05/07/24 Rosuvastatin Calcium [Crestor] 40 mg PO HS 05/07/24 05/07/24 metFORMIN HCL 500 mg PO DAILY@1600 05/07/24 05/07/24 Previous Rx's Medication Instructions Recorded Clopidogrel [Plavix] 75 mg PO DAILY 90 Days #90 tablet 05/09/24 HYDROcodone/APAP 5-325MG [Truchas 1 tab PO Q6HR PRN #12 tab 07/28/24 5-325] Ibuprofen [Motrin] 600 mg PO Q8HR PRN #24 tab 07/28/24 Tamsulosin [Flomax] 0.4 mg PO DAILY #7 cap 07/28/24 Allergies Allergy/AdvReac Type Severity Reaction Status Date / Time cephalexin [From Keflex] Allergy Anaphylaxis Verified 07/28/24 03:10 Iodinated Contrast Media Allergy Anaphylaxis Verified 07/28/24 03:10 Review of Systems ROS Statement: Those systems with pertinent positive or pertinent negative responses have been documented in the HPI. ROS Other: All systems not noted in ROS Statement are negative. Past Medical History Past Medical History: Asthma, Coronary Artery Disease (CAD), COPD, Diabetes M ellitus, Hypertension, Myocardial Infarction (PA) Last Myocardial Infarction Date:: 2016 History of Any Multi-Drug Resistant Organisms: None Reported Past Surgical History: Ear Surgery, Heart Catheterization, Heart Catheterization With Stent, Hysterectomy Additional Past Surgical History / Comment(s): 2 cardiac stents, cataract and foot surgery Date of Last Stent Placement:: 06/10/2017 Past Psychological History: No Psychological Hx Reported Smoking Status: Current every day smoker Past Alcohol Use History: None Reported Past Drug Use History: Marijuana General Exam General appearance: alert, in no apparent distress Head exam: Present: atraumatic, normocephalic Eye exam: Present: normal appearance, PERRL ENT exam: Present: normal exam Neck exam: Present: normal inspection. Absent: tenderness, meningismus Respiratory exam: Present: normal lung sounds bilaterally. Absent: respiratory distress, wheezes Cardiovascular Exam: Present: regular rate, normal rhythm GI/Abdominal exam: Present: soft. Absent: distended, tenderness Extremities exam: Present: normal inspection Back exam: Present: CVA tenderness (L) Neurological exam: Present: alert, oriented X3 Psychiatric exam: Present: normal affect, normal mood Skin exam: Present: warm, dry, intact Course Vital Signs 07/28/24 03:05 Temperature 97.5 F L Pulse Rate 78 Respiratory 18 Rate Blood Pressure 149/82 O2 Sat by Pulse 97 Oximetry Medical Decision Making - Medical Decision Making Was pt. sent in by a medical professional or institution (, PA, BUSINESS AREA DIRECTOR, urgent care, hospital, or long term...) When possible be specific @ -No Did you speak to anyone other than the patient for history (EMS, parent, family, police, friend...)? What history was obtained from this source @ -No Did you review nursing and triage notes (agree or disagree)? Why? @ -I reviewed and agree with nursing and triage notes Were old charts reviewed (outside hosp., previous admission, EMS record, old EKG, old radiological studies, urgent care reports/EKG's, long term records)? Report findings @ -No old charts were reviewed Differential Abdominal Pain Women: Appendicitis, Cholecystitis, diverticulosis, ischemic bowel, pancreatitis, hepatitis, UTI, gastroenteritis, AAA, incarcerated hernia, bowel obstruction, constipation, inflammatory bowel, hepatitis, peptic ulcer disease, splenic infarction, perforated viscus, vulvitis, ovarian torsion, PID, kidney stone, placenta abruption, this is not meant to be an all-inclusive list EKG interpreted by me (3pts min.). @ -As above X-rays interpreted by me (1pt min.). @ -None done CT interpreted by me (1pt min.). @CT of the abdomen pelvis showing a proximal left renal calculi with secondary obstruction U/S interpreted by me (1pt. min.). @ -None done What testing was considered but not performed or refused? (CT, X-rays, U/S, labs)? Why? @ -None What meds were considered but not given or refused? Why? @ -None Did you discuss the management of the patient with other professionals (professionals i.e. , PA, BUSINESS AREA DIRECTOR, lab, RT, psych nurse, group social worker, drama professor, teacher, supply requirements officer, rn field case manager)? Give summary @ -No Was smoking cessation discussed for >3mins.? @ -No Was critical care preformed (if so, how long)? @ -No Were there social determinants of health that impacted care today? How? (Homele ssness, low income, unemployed, alcoholism, drug addiction, transportation, low edu. Level, literacy, decrease access to med. care, [facility], rehab)? @ -No Was there de-escalation of care discussed even if they declined (Discuss DNR or withdrawal of care, Hospice)? DNR status @ -No What co-morbidities impacted this encounter? (DM, HTN, Smoking, COPD, CAD, Cancer, CVA, ARF, Chemo, Hep., AIDS, mental health diagnosis, sleep apnea, morbid obesity)? @ -None Was patient admitted / discharged? Hospital course, mention meds given and route, prescriptions, significant lab abnormalities, going to OR and other pertinent info. @ -54-year-old female with intermittent flank pain and abdominal pain over the past 1 week with hematuria. Patient does have hematuria today. She has a obstructing kidney stone measuring 4 mm on the left consistent with the patient's pain. Her pain is able to be controlled in the emergency department. She had a potassium 2.9 which was replaced. Her initial blood glucose was low and this was also corrected with IV glucose. Patient was able to eat and drink in the emergency department. Given a urine strainer. Prescribed medication for symptom control and will follow-up with urology. Undiagnosed new problem with uncertain prognosis? @ -No Drug Therapy requiring intensive monitoring for toxicity (Heparin, Nitro, Insulin, Cardizem)? @ -No Were any procedures done? @ -No Diagnosis/symptom? @ -[Obstructing renal calculus Acute, or Chronic, or Acute on Chronic? @ -Acute Uncomplicated (without systemic symptoms) or Complicated (systemic symptoms)? @ -Default Side effects of treatment? @ -No Exacerbation, Progression, or Severe Exacerbation? @ -No Poses a threat to life or bodily function? How? (Chest pain, USA, PA, pneumonia, PE, COPD, DKA, ARF, appy, cholecystitis, CVA, Diverticulitis, Homicidal, Suicidal, threat to staff... and all critical care pts) @ -No - Lab Data Result diagrams: 07/28/24 03:15 07/28/24 03:15 Lab Results 07/28/24 07/28/24 07/28/24 Range/Units 03:15 03:15 03:15 WBC 11.2 H (3.8-10.6) k/uL RBC 4.87 (3.80-5.40) m/uL Hgb 14.1 (11.4-16.0) gm/dL Hct 42.5 (34.0-46.0) % MCV 87.3 (80.0-100.0) fL MCH 28.9 (25.0-35.0) pg MCHC 33.2 (31.0-37.0) g/dL RDW 13.6 (11.5-15.5) % Plt Count 184 (150-450) k/uL MPV 7.8 Neutrophils % 77 % Lymphocytes % 17 % Monocytes % 4 % Eosinophils % 1 % Basophils % 0 % Neutrophils # 8.6 H (1.3-7.7) k/uL Lymphocytes # 1.9 (1.0-4.8) k/uL Monocytes # 0.4 (0-1.0) k/uL Eosinophils # 0.1 (0-0.7) k/uL Basophils # 0.0 (0-0.2) k/uL PT 10.7 (10.0-12.5) sec INR 1.0 (<1.2) APTT 29.6 (22.0-30.0) sec Sodium 140 (137-145) mmol/L Potassium 2.9 L (3.5-5.1) mmol/L Chloride 99 (98-107) mmol/L Carbon Dioxide 34 H (22-30) mmol/L Anion Gap 7 mmol/L BUN 10 (7-17) mg/dL Creatinine 0.74 (0.52-1.04) mg/dL Est GFR (CKD-EPI)AfAm >90 (>60 ml/min/1.73 sqM) Est GFR (CKD-EPI)NonAf >90 (>60 ml/min/1.73 sqM) Glucose 44 L* (74-99) mg/dL POC Glucose (mg/dL) (70-110) mg/dL POC Glu Clinical Operations Specialist ID Plasma Lactic Acid Abrahan (0.7-2.0) mmol/L Calcium 9.1 (8.4-10.2) mg/dL Total Bilirubin 0.7 (0.2-1.3) mg/dL AST 22 (14-36) U/L ALT 10 (4-34) U/L Alkaline Phosphatase 121 (38-126) U/L Total Protein 6.4 (6.3-8.2) g/dL Albumin 3.8 (3.5-5.0) g/dL Lipase 49 (23-300) U/L Urine Color Urine Appearance (Clear) Urine pH (5.0-8.0) Ur Specific [place] (1.001-1.035) Urine Protein (Negative) Urine Glucose (UA) (Negative) Urine Ketones (Negative) Urine Blood (Negative) Urine Nitrite (Negative) Urine Bilirubin (Negative) Urine Urobilinogen (<2.0) mg/dL Ur Leukocyte Esterase (Negative) Urine RBC (0-5) /hpf Urine WBC (0-5) /hpf Calcium Oxalate Crystal (None) /hpf Urine Mucus (None) /hpf 07/28/24 07/28/24 07/28/24 Range/Units 03:15 04:13 04:18 WBC (3.8-10.6) k/uL RBC (3.80-5.40) m/uL Hgb (11.4-16.0) gm/dL Hct (34.0-46.0) % MCV (80.0-100.0) fL MCH (25.0-35.0) pg MCHC (31.0-37.0) g/dL RDW (11.5-15.5) % Plt Count (150-450) k/uL MPV Neutrophils % % Lymphocytes % % Monocytes % % Eosinophils % % Basophils % % Neutrophils # (1.3-7.7) k/uL Lymphocytes # (1.0-4.8) k/uL Monocytes # (0-1.0) k/uL Eosinophils # (0-0.7) k/uL Basophils # (0-0.2) k/uL PT (10.0-12.5) sec INR (<1.2) APTT (22.0-30.0) sec Sodium (137-145) mmol/L Potassium (3.5-5.1) mmol/L Chloride (98-107) mmol/L Carbon Dioxide (22-30) mmol/L Anion Gap mmol/L BUN (7-17) mg/dL Creatinine (0.52-1.04) mg/dL Est GFR (CKD-EPI)AfAm (>60 ml/min/1.73 sqM) Est GFR (CKD-EPI)NonAf (>60 ml/min/1.73 sqM) Glucose (74-99) mg/dL POC Glucose (mg/dL) 55 L (70-110) mg/dL POC Glu Clinical Operations Specialist ID Delaney Hansel Plasma Lactic Acid Abrahan 2.2 H* (0.7-2.0) mmol/L Calcium (8.4-10.2) mg/dL Total Bilirubin (0.2-1.3) mg/dL AST (14-36) U/L ALT (4-34) U/L Alkaline Phosphatase (38-126) U/L Total Protein (6.3-8.2) g/dL Albumin (3.5-5.0) g/dL Lipase (23-300) U/L Urine Color Red Urine Appearance Turbid H (Clear) Urine pH 6.5 (5.0-8.0) Ur Specific [place] 1.020 (1.001-1.035) Urine Protein 2+ H (Negative) Urine Glucose (UA) Negative (Negative) Urine Ketones Negative (Negative) Urine Blood Large H (Negative) Urine Nitrite Negative (Negative) Urine Bilirubin Negative (Negative) Urine Urobilinogen <2.0 (<2.0) mg/dL Ur Leukocyte Esterase Small H (Negative) Urine RBC >182 H (0-5) /hpf Urine WBC 21 H (0-5) /hpf Calcium Oxalate Crystal Many H (None) /hpf Urine Mucus Few H (None) /hpf 07/28/24 Range/Units 04:38 WBC (3.8-10.6) k/uL RBC (3.80-5.40) m/uL Hgb (11.4-16.0) gm/dL Hct (34.0-46.0) % MCV (80.0-100.0) fL MCH (25.0-35.0) pg MCHC (31.0-37.0) g/dL RDW (11.5-15.5) % Plt Count (150-450) k/uL MPV Neutrophils % % Lymphocytes % % Monocytes % % Eosinophils % % Basophils % % Neutrophils # (1.3-7.7) k/uL Lymphocytes # (1.0-4.8) k/uL Monocytes # (0-1.0) k/uL Eosinophils # (0-0.7) k/uL Basophils # (0-0.2) k/uL PT (10.0-12.5) sec INR (<1.2) APTT (22.0-30.0) sec Sodium (137-145) mmol/L Potassium (3.5-5.1) mmol/L Chloride (98-107) mmol/L Carbon Dioxide (22-30) mmol/L Anion Gap mmol/L BUN (7-17) mg/dL Creatinine (0.52-1.04) mg/dL Est GFR (CKD-EPI)AfAm (>60 ml/min/1.73 sqM) Est GFR (CKD-EPI)NonAf (>60 ml/min/1.73 sqM) Glucose (74-99) mg/dL POC Glucose (mg/dL) 204 H (70-110) mg/dL POC Glu Clinical Operations Specialist ID Delaney Hamm Plasma Lactic Acid Abrahan (0.7-2.0) mmol/L Calcium (8.4-10.2) mg/dL Total Bilirubin (0.2-1.3) mg/dL AST (14-36) U/L ALT (4-34) U/L Alkaline Phosphatase (38-126) U/L Total Protein (6.3-8.2) g/dL Albumin (3.5-5.0) g/dL Lipase (23-300) U/L Urine Color Urine Appearance (Clear) Urine pH (5.0-8.0) Ur Specific [place] (1.001-1.035) Urine Protein (Negative) Urine Glucose (UA) (Negative) Urine Ketones (Negative) Urine Blood (Negative) Urine Nitrite (Negative) Urine Bilirubin (Negative) Urine Urobilinogen (<2.0) mg/dL Ur Leukocyte Esterase (Negative) Urine RBC (0-5) /hpf Urine WBC (0-5) /hpf Calcium Oxalate Crystal (None) /hpf Urine Mucus (None) /hpf Disposition Clinical Impression: Calculus of kidney Disposition: HOME SELF-CARE Condition: Fair Instructions (If sedation given, give patient instructions): Kidney Stones (ED), Flank Pain (ED) Prescriptions: Tamsulosin [Flomax] 0.4 mg PO DAILY #7 cap Ibuprofen [Motrin] 600 mg PO Q8HR PRN #24 tab PRN Reason: Pain HYDROcodone/APAP 5-325MG [Truchas 5-325] 1 tab PO Q6HR PRN #12 tab PRN Reason: Pain Is patient prescribed a controlled substance at d/c from ED?: No Referrals: None,Stated [Primary Care Provider] - 1-2 days Pieter Huang MD [STAFF PHYSICIAN] - 1-2 days Time of Disposition: 05:19
[2024-07-28] MEDS: SODIUM CHLORIDE 0.9% 500 ML 500 ML IV ONE (05:06)
[2024-07-28 05:07] LABS: Partial Thromboplastin Time 29.6 sec (22.0-30.0); Prothrombin Time 10.7 sec (10.0-12.5)
[2024-07-28] MEDS: KETOROLAC 15 MG/ML 1 ML VIAL IVP STA (05:09)
[2024-07-28] MEDS: POTASSIUM CHLORIDE ER 20 MEQ TAB.ER PO STA (05:12)
[2024-07-28 07:26] LABS: Glucose,Whole Blood 89 mg/dL (70-110)
[2024-07-28 07:45] VITALS: BP 132/78; PULSE 80; RESP 20; TEMP 98
== END 2024-07-28 07:57 | disposition home or self-care (01) ==
LOC: EC 03:04
DX: N20.0 Calculus of kidney (principal); F17.200 Nicotine dependence, unspecified, uncomplicated; Z88.1 Allergy status to other antibiotic agents; Z91.041 Radiographic dye allergy status
CPT/HCPCS: 36415; 80053; 83605; 83690; 85025; 85610; 85730; 81001; 74176; 99284; 96374; 96375; 96376; 96361; J2405; J1885; J1171

== ENCOUNTER 2024-08-26 16:15 | Inpatient (IN) | payer OTHER ==
--- NOTE | 2024-08-26 16:49 | ED ---
Nausea/Vomiting/Diarrhea HPI - General Chief complaint: Nausea/Vomiting/Diarrhea Stated complaint: flu symptoms Time Seen by Provider: 08/26/24 16:30 Source: patient, RN notes reviewed Mode of arrival: ambulatory Limitations: no limitations - History of Present Illness Initial comments: This is a 54-year-old female who presents to the emergency department for coughing, congestion, nausea, and vomiting. States that it started 2 days ago. Her is sick with the same symptoms. States that she feels very short of breath as well and needs a breathing treatment. She has some associated chest pain. She tried taking Zofran for the nausea, however it was not effective. Denies any abdominal pain. MD complaint: nausea, vomiting - Related Data Home Medications Medication Instructions Recorded Confirmed Albuterol Inhaler [Ventolin Hfa 2 puff INHALATION RT-Q4H PRN 05/07/24 08/26/24 Inhaler] Aspirin EC [Ecotrin Low Dose] 81 mg PO DAILY 05/07/24 08/26/24 Budesonide/Glycopyr/Formoterol 2 puff INHALATION RT-BID 05/07/24 08/26/24 [Breztri Aerosphere Inhaler] Dulaglutide [Trulicity] 0.75 mg SQ FR 05/07/24 08/26/24 Ergocalciferol (Vitamin D2) 1,250 mcg PO Q30D 05/07/24 08/26/24 [Drisdol (50,000 Iu)] Glimepiride 4 mg PO DAILY@1600 05/07/24 08/26/24 Isosorbide Mononitrate ER [Imdur] 30 mg PO DAILY 05/07/24 08/26/24 Ondansetron [Zofran] 4 mg PO BID PRN 05/07/24 08/26/24 Rosuvastatin Calcium [Crestor] 40 mg PO HS 05/07/24 08/26/24 metFORMIN HCL 500 mg PO DAILY@1600 05/07/24 08/26/24 Metoprolol Tartrate [Lopressor] 50 mg PO BID 08/03/24 08/26/24 polyethylene glycoL 3350 [Miralax] 17 gm PO DAILY 08/03/24 08/26/24 Amoxic-Pot Clav 875-125Mg 1 tab PO Q12HR 02/26/25 02/26/25 [Augmentin 875-125] metroNIDAZOLE [Flagyl] 500 mg PO TID 08/26/24 08/26/24 Previous Rx's Medication Instructions Recorded Clopidogrel [Plavix] 75 mg PO DAILY 90 Days #90 tablet 05/09/24 HYDROcodone/APAP 5-325MG [[place] 1 tab PO Q6HR PRN #12 tab 07/28/24 5-325] Ibuprofen [Motrin] 600 mg PO Q8HR PRN #24 tab 07/28/24 Tamsulosin [Flomax] 0.4 mg PO DAILY #7 cap 07/28/24 Allergies Allergy/AdvReac Type Severity Reaction Status Date / Time cephalexin [From Keflex] Allergy Anaphylaxis Verified 08/26/24 18:29 Iodinated Contrast Media Allergy Anaphylaxis Verified 08/26/24 18:29 egg AdvReac Nausea Verified 08/26/24 18:29 Review of Systems ROS Statement: Those systems with pertinent positive or pertinent negative responses have been documented in the HPI. ROS Other: All systems not noted in ROS Statement are negative. Past Medical History Past Medical History: Asthma, Coronary Artery Disease (CAD), COPD, Diabetes Mellitus, Hypertension, Myocardial Infarction ([place]) Additional Past Medical History / Comment(s): kidney stones, Last Myocardial Infarction Date:: 2016 History of Any Multi-Drug Resistant Organisms: None Reported Past Surgical History: Ear Surgery, Heart Catheterization, Heart Catheterization With Stent, Hysterectomy Additional Past Surgical History / Comment(s): 2 cardiac stents, cataract and foot surgery Date of Last Stent Placement:: 06/10/2017 Past Psychological History: No Psychological Hx Reported Smoking Status: Current every day smoker Past Alcohol Use History: None Reported Past Drug Use History: Marijuana General Exam Limitations: no limitations General appearance: alert, in no apparent distress Head exam: Present: atraumatic, normocephalic, normal inspection Respiratory exam: Present: wheezes, decreased breath sounds, prolonged expiratory Cardiovascular Exam: Present: normal rhythm, tachycardia GI/Abdominal exam: Present: soft, normal bowel sounds. Absent: distended, tenderness, guarding, rebound, rigid Neurological exam: Present: alert, oriented X3, CN II-XII intact Psychiatric exam: Present: normal affect, normal mood Skin exam: Present: warm, dry, intact, normal color. Absent: rash Course Vital Signs 08/26/24 08/26/24 08/26/24 16:24 17:43 18:03 Temperature 102.1 F H 101 F H Pulse Rate 101 H 97 Respiratory 20 18 Rate Blood Pressure 117/66 107/65 Blood Pressure [Right Arm] O2 Sat by Pulse 89 L 92 L 94 L Oximetry 08/26/24 08/26/24 08/26/24 18:09 18:17 18:46 Temperature Pulse Rate 88 90 89 Respiratory Rate Blood Pressure Blood Pressure [Right Arm] O2 Sat by Pulse Oximetry 08/26/24 08/26/24 08/26/24 18:53 19:26 19:36 Temperature 99.3 F Pulse Rate 92 89 92 Respiratory 19 20 Rate Blood Pressure 88/54 96/61 Blood Pressure [Right Arm] O2 Sat by Pulse 91 L 91 L Oximetry 08/26/24 08/26/24 08/26/24 20:08 22:02 23:35 Temperature Pulse Rate 83 71 Respiratory 20 20 Rate Blood Pressure 94/57 102/65 Blood Pressure 92/50 [Right Arm] O2 Sat by Pulse 93 L 92 L Oximetry Medical Decision Making - Medical Decision Making This is a 54 year old female who presents to the emergency department for coughing, congestion, nausea, and vomiting. Was pt. sent in by a medical professional or institution? @ -No Did you speak to anyone other than the patient for history? @ -No Did you review nursing and triage notes? @ -Yes, and I agree, it is accurate with regards to the patient's symptoms. Were old charts reviewed? @ -No Differential Diagnosis? @ -Differential Cough: Influenza, Covid, RSV, croup, allergic rhinitis, GERD, pneumonia, bronchitis, COPD, viral pharyngitis, streptococcal pharyngitis, this is not meant to be an all-inclusive list. EKG interpreted by me (3pts min.)? @ -EKG interpreted by me demonstrating the following: Sinus tachycardia. Ventricular rate 100 bpm, TN interval 162 ms, QRS duration 96 ms, QTc 414 ms. X-rays interpreted by me (1pt min.)? @ -Chest x-ray obtained, my interpretation identifies no localized consolidations or infiltrates. CT interpreted by me (1pt min.)? @ -CTA of the chest obtained. My interpretation identifies no pulmonary embolus. U/S interpreted by me (1pt. min.)? @ -Not obtained What testing was considered but not performed? (CT, X-rays, U/S, labs)? Why? @ -None What meds were considered but not given? Why? @ -None Did you discuss the management of the patient with other professionals? @ -Yes, Dr. Edmondson, who accepts the patient for admission. Did you reconcile home meds? @ -Yes Was smoking cessation discussed for >3mins.? @ -No Was critical care preformed (if so, how long)? @ -No Were there social determinants of health that impacted care today? How? (Homelessness, low income, unemployed, alcoholism, drug addiction, transportation, low edu. Level, literacy, decrease access to med. care, long term, rehab)? @ -No Was there de-escalation of care discussed even if they declined? (Discuss DNR or withdrawal of care, Hospice)? @ -No What co-morbidities impacted this encounter? (DM, HTN, Smoking, COPD, CAD, Cancer, CVA, Hep., AIDS, mental health diagnosis, sleep apnea, morbid obesity)? @ -Asthma, COPD Was patient admitted / discharged? @ -Admitted. Lab work unremarkable. Patient positive for influenza A. When she was triaged, her pulse ox was 89%. When she was rechecked in the emergency department it was around 79%. She was subsequently started on a nasal cannula at 3 L/min that then had to be turned up to 4L. Chest x-ray reveals no acute process. 2 duonebs administered without any change in respiratory status or O2 saturation. CTA of the chest obtained for further evaluation. This was a suboptimal study, however no acute central pulmonary embolus was identified. She does have multifocal groundglass opacities bilaterally that could reflect acute edema and/or infiltrates. There was also more focal consolidation and/or atelectasis in the right lung base. These changes may be related to the influenza. Will leave discretion of potential antibiotic therapy for secondary bacterial infection to admitting team and pulmonology. Sputum culture and procalcitonin ordered. She was started on Tamiflu for influenza and admitted to medicine for acute hypoxic respiratory failure with influenza A. Consult placed for pulmonology. Case discussed with ED attending Dr. Tello. Undiagnosed new problem with uncertain prognosis? @ -None Drug Therapy requiring intensive monitoring for toxicity (Heparin, Nitro, Insulin, Cardizem)? @ -None Were any procedures done? @ -None Diagnosis/symptom? @ -Acute hypoxic respiratory failure with influenza A Acute, or Chronic, or Acute on Chronic? @ -Acute Uncomplicated (without systemic symptoms) or Complicated (systemic symptoms)? @ -Complicated Side effects of treatment? @ -None Exacerbation, Progression, or Severe Exacerbation] @ -Not applicable Poses a threat to life or bodily function? @ -Yes, can lead to respiratory arrest and - Lab Data Result diagrams: 08/26/24 16:46 08/26/24 18:01 Lab Results 08/26/24 08/26/24 08/26/24 Range/Units 16:40 16:46 18:01 WBC 8.9 (3.8-10.6) k/uL RBC 4.84 (3.80-5.40) m/uL Hgb 13.8 (11.4-16.0) gm/dL Hct 43.7 (34.0-46.0) % MCV 90.2 (80.0-100.0) fL MCH 28.4 (25.0-35.0) pg MCHC 31.5 (31.0-37.0) g/dL RDW 13.4 (11.5-15.5) % Plt Count 194 (150-450) k/uL MPV 7.6 Neutrophils % 88 % Lymphocytes % 5 % Monocytes % 4 % Eosinophils % 2 % Basophils % 0 % Neutrophils # 7.8 H (1.3-7.7) k/uL Lymphocytes # 0.5 L (1.0-4.8) k/uL Monocytes # 0.4 (0-1.0) k/uL Eosinophils # 0.2 (0-0.7) k/uL Basophils # 0.0 (0-0.2) k/uL PT (10.0-12.5) sec INR (<1.2) APTT (22.0-30.0) sec Sodium 136 L (137-145) mmol/L Potassium 4.1 (3.5-5.1) mmol/L Chloride 103 (98-107) mmol/L Carbon Dioxide 27 (22-30) mmol/L Anion Gap 6 mmol/L BUN 14 (7-17) mg/dL Creatinine 0.67 (0.52-1.04) mg/dL Est GFR (CKD-EPI)AfAm >90 (>60 ml/min/1.73 sqM) Est GFR (CKD-EPI)NonAf >90 (>60 ml/min/1.73 sqM) Glucose 77 (74-99) mg/dL Calcium 8.2 L (8.4-10.2) mg/dL Total Bilirubin 0.7 (0.2-1.3) mg/dL AST 29 (14-36) U/L ALT 13 (4-34) U/L Alkaline Phosphatase 86 (38-126) U/L Troponin I (0.000-0.034) ng/mL Total Protein 6.5 (6.3-8.2) g/dL Albumin 3.7 (3.5-5.0) g/dL Influenza Type A (PCR) Detected A (Not Detectd) Influenza Type B (PCR) Not Detected (Not Detectd) RSV (PCR) Not Detected (Not Detectd) SARS-CoV-2 (PCR) Not Detected (Not Detectd) 08/26/24 08/26/24 Range/Units 18:01 18:42 WBC (3.8-10.6) k/uL RBC (3.80-5.40) m/uL Hgb (11.4-16.0) gm/dL Hct (34.0-46.0) % MCV (80.0-100.0) fL MCH (25.0-35.0) pg MCHC (31.0-37.0) g/dL RDW (11.5-15.5) % Plt Count (150-450) k/uL MPV Neutrophils % % Lymphocytes % % Monocytes % % Eosinophils % % Basophils % % Neutrophils # (1.3-7.7) k/uL Lymphocytes # (1.0-4.8) k/uL Monocytes # (0-1.0) k/uL Eosinophils # (0-0.7) k/uL Basophils # (0-0.2) k/uL PT 11.1 (10.0-12.5) sec INR 1.0 (<1.2) APTT 28.6 (22.0-30.0) sec Sodium (137-145) mmol/L Potassium (3.5-5.1) mmol/L Chloride (98-107) mmol/L Carbon Dioxide (22-30) mmol/L Anion Gap mmol/L BUN (7-17) mg/dL Creatinine (0.52-1.04) mg/dL Est GFR (CKD-EPI)AfAm (>60 ml/min/1.73 sqM) Est GFR (CKD-EPI)NonAf (>60 ml/min/1.73 sqM) Glucose (74-99) mg/dL Calcium (8.4-10.2) mg/dL Total Bilirubin (0.2-1.3) mg/dL AST (14-36) U/L ALT (4-34) U/L Alkaline Phosphatase (38-126) U/L Troponin I <0.012 (0.000-0.034) ng/mL Total Protein (6.3-8.2) g/dL Albumin (3.5-5.0) g/dL Influenza Type A (PCR) (Not Detectd) Influenza Type B (PCR) (Not Detectd) RSV (PCR) (Not Detectd) SARS-CoV-2 (PCR) (Not Detectd) - Radiology Data Radiology results: report reviewed, image reviewed Disposition Clinical Impression: Acute hypoxic respiratory failure, Influenza A Disposition: ADMITTED IP TO THIS HOSP
[2024-08-26] MEDS: SODIUM CHLORIDE 0.9% 1,000 ML IV STA ×3 (16:54→19:30)
[2024-08-26] MEDS: ACETAMINOPHEN TAB 500 MG TAB PO STA (16:54)
[2024-08-26 17:01] LABS: Basophils % (A) 0 %; Eosinophils # (A) 0.2 k/uL (0-0.7); Eosinophils % (A) 2 %; HCT 43.7 % (34.0-46.0); HGB 13.8 gm/dL (11.4-16.0); Lymphocytes # (A) 0.5 k/uL (1.0-4.8); Lymphocytes % (A) 5 %; MCH 28.4 pg (25.0-35.0); MCHC 31.5 g/dL (31.0-37.0); MCV 90.2 fL (80.0-100.0); Mean Platelet Volume 7.6; Monocytes # (A) 0.4 k/uL (0-1.0); Monocytes % (A) 4 %; Neutrophils # (A) 7.8 k/uL (1.3-7.7); Neutrophils % (A) 88 %; Platelet Count 194 k/uL (150-450); RBC 4.84 m/uL (3.80-5.40); RDW 13.4 % (11.5-15.5); WBC 8.9 k/uL (3.8-10.6)
[2024-08-26] MEDS: KETOROLAC 15 MG/ML 1 ML VIAL IVP STA (17:02)
[2024-08-26] MEDS: MORPHINE SULFATE 4 MG/ML SYRINGE IVP STA (17:02)
[2024-08-26] MEDS: PROCHLORPERAZINE INJ 10 MG/2 ML VIAL IVP STA (17:02)
[2024-08-26] MEDS: methylPREDNISolone SOD SUCCI 125 MG/2 ML VIAL IV STA ×2 (17:03→22:10)
[2024-08-26 17:24] LABS: Influenza A Detected (Not Detectd); Influenza B Not Detected (Not Detectd); RSV Not Detected (Not Detectd)
[2024-08-26] MEDS: OSELTAMIVIR 75 MG CAP PO STA (17:57)
[2024-08-26] MEDS: IBUPROFEN 800 MG TAB PO STA (17:57)
[2024-08-26] MEDS: IPRATROPIUM-ALBUTEROL 3 ML NEB INHALATION STA ×2 (18:09→18:45)
[2024-08-26 18:18] LABS: ALT 13 U/L (4-34); AST 29 U/L (14-36); African American GFR (CKD) >90 (>60 ml/min/1.73 sqM); Albumin 3.7 g/dL (3.5-5.0); Alkaline Phosphatase 86 U/L (38-126); Anion Gap 6 mmol/L; Blood Urea Nitrogen 14 mg/dL (7-17); Calcium 8.2 mg/dL (8.4-10.2); Carbon Dioxide 27 mmol/L (22-30); Chloride 103 mmol/L (98-107); Glucose 77 mg/dL (74-99); Non-African American GFR(CKD) >90 (>60 ml/min/1.73 sqM); Potassium 4.1 mmol/L (3.5-5.1); Sodium 136 mmol/L (137-145); Total Bilirubin 0.7 mg/dL (0.2-1.3); Total Protein 6.5 g/dL (6.3-8.2)
[2024-08-26] MEDS ORDERED: IPRATROPIUM-ALBUTEROL 3 ML NEB INHALATION PRN (18:26)
[2024-08-26] MEDS ORDERED: HYDROcodone/APAP 5-325MG 1 EACH TAB PO PRN ×2 (18:41→19:08)
[2024-08-26] MEDS ORDERED: ALBUTEROL NEBULIZED 2.5 MG/3 ML INHALATION PRN (18:41)
[2024-08-26] MEDS ORDERED: IBUPROFEN 600 MG TAB PO PRN (18:41)
[2024-08-26] MEDS ORDERED: ONDANSETRON ODT 4 MG TAB PO PRN (18:41)
--- NOTE | 2024-08-26 18:56 | XR ---
EXAMINATION TYPE: XR chest 2V DATE OF EXAM: 08/26/2024 6:44 PM COMPARISON: Chest x-ray May 07, 2024 CLINICAL INDICATION: Female, 54 years old with history of Cough, TECHNIQUE: Frontal and lateral views of the chest are obtained. FINDINGS: Increased opacities bilateral lower lungs redemonstrated favoring fibrosis. There is no johan picious marrow focal air space opacity, pleural effusion, or pneumothorax seen. The cardiac silhouet te size is upper limits of normal. Slight underlying scoliotic curvature is present. IMPRESSION: Chronic interstitial changes favoring fibrosis. No new acute pulmonary infiltrate. [facility], , 08/26/2024 6:54 PM
[2024-08-26 19:02] LABS: Partial Thromboplastin Time 28.6 sec (22.0-30.0); Prothrombin Time 11.1 sec (10.0-12.5)
[2024-08-26] MEDS ORDERED: NALOXONE 0.4 MG/ML 1 ML VIAL IV PRN (19:08)
[2024-08-26] MEDS ORDERED: ONDANSETRON 4 MG/2 ML VIAL IVP PRN (19:08)
[2024-08-26] MEDS ORDERED: IBUPROFEN 400 MG TAB PO PRN (19:08)
[2024-08-26] MEDS ORDERED: KETOROLAC 15 MG/ML 1 ML VIAL IVP PRN (19:08)
[2024-08-26 19:41] LABS: Glucose,Whole Blood 87 mg/dL (70-110)
[2024-08-26] MEDS: IPRATROPIUM-ALBUTEROL 3 ML NEB INHALATION SCH (20:13)
[2024-08-26] MEDS: SYMBICORT 160-4.5 MCG INHALER INHALATION SCH (20:14)
[2024-08-26] MEDS ORDERED: OSELTAMIVIR 75 MG CAP PO SCH (21:00)
[2024-08-26] MEDS: diphenhydrAMINE 50 MG/ML 1 ML VIAL IVP STA (22:06)
[2024-08-26] MEDS: FAMOTIDINE 20 MG/2 ML VIAL IV STA (22:08)
[2024-08-26] MEDS: METOPROLOL TARTRATE 50 MG TAB PO SCH (22:22)
[2024-08-26] MEDS: ATORVASTATIN 80 MG TAB PO SCH (22:25)
[2024-08-26] MEDS: guaiFENesin-DM 600/30MG 1 EACH TAB.ER.12H PO SCH (22:25)
--- NOTE | 2024-08-26 22:49 | CT ---
EXAMINATION TYPE: CT chest angio for PE DATE OF EXAM: 08/26/2024 COMPARISON: NONE HISTORY: NATACHA. SOB, Pt states she has the flu. CT DLP: 329 mGycm. Automated Exposure Control for Dose Reduction was Utilized. CONTRAST: CTA scan of the thorax is performed with IV Contrast, patient injected with 100 ml mL of Isovue 370, pulmonary embolism protocol. MIP Images are created on CT scanner and reviewed. FINDINGS: LUNGS: Suboptimal study with motion artifact limiting evaluation particularly for subcentimeter nodul es. Multifocal areas of reticulation and/or fibrotic change in the upper lungs are seen greatest ante riorly. There are multifocal small groundglass opacities bilaterally. No pleural effusion or pneumot horax is seen. There is [id number] bibasilar linear scarring and/or atelectasis. There is more prominent focal consolidation and/or atelectasis in the medial right lower lobe. MEDIASTINUM: Suboptimal study with most dense contrast in the SVC. There is three-vessel coronary art crystal calcification and/or stents identified. Heart size upper limits of normal. No pericardial effusio n. No acute central pulmonary embolism. Suboptimal evaluation of peripheral vessels. Enhancement of t he aorta without aneurysm or dissection. There are some prominent and borderline enlarged mediastinal and bilateral hilar lymph nodes. Findings favored reactive. OTHER: Scoliosis is seen. IMPRESSION: 1. Suboptimal study without acute central pulmonary embolism. Cannot exclude acute peripheral pulmona ry embolism on this exam. 2. Moderate fibrotic changes in the upper lungs. Multifocal groundglass opacities bilaterally could r eflect acute edema and/or infiltrates. More focal consolidation and/or atelectasis in the medial righ t lung base is noted. Correlate clinically. [facility], , 08/26/2024 10:46 PM
[2024-08-27] MEDS: methylPREDNISolone SOD SUCCI 125 MG/2 ML VIAL IV SCH (00:07)
[2024-08-27 01:02] LABS: ABG Base Excess -3.2 mmol/L; ABG HCO3 25 mmol/L (21-25); ABG Oxygen Saturation 93.1 % (94-97); ABG PCO2 55 mmHg (35-45); ABG PH 7.26 (7.35-7.45); ABG PO2 73 mmHg (83-108); ABG TCO2 26 mmol/L (19-24); Allen Test Performed? Yes
--- NOTE | 2024-08-27 04:17 | P.CNPUL ---
History of Present Illness Consult date: 08/27/24 Requesting physician: Montse Rust Reason for consult: other (Influenza A positive) Chief complaint: Flulike symptoms History of present illness: Patient is a 54-year-old female with past medical history significant for COPD, chronic ongoing tobacco smoker, hypertension, hyperlipidemia, coronary artery disease with previous PCI/stents, kidney stones, among other things. Her PCP is Dr. Edmondson. Patient does follow in the pulmonary office with Dr. Krause. She does have a history of COPD, and her FEV1 is 40% of predicted. Utilizes a Breztri inhaler, as well as, as needed albuterol rescue inhaler. Continues to smoke "few cigarettes" per day. Patient presented emergency department yes terday afternoon with a chief complaint of flulike symptoms starting approximately 48 hours ago. Tested positive for influenza A on arrival. For this reason, pulmonary consult was placed. Patient currently being evaluated in the emergency department, she is lethargic, responds to verbal questioning, but then falls back asleep. Audible wheezing. On 3 L/min nasal cannula. Apparently, a grandchild was sick with similar symptoms earlier in the week. Approximately 2 days ago, she started to develop runny nose, sore throat, cough and congestion, high fevers, episodes of nausea and vomiting. Did have a Tmax of 102.1 F on arrival. Chest x-ray showing mostly chronic interstitial changes. Chest CTA does not show any central pulmonary embolus. Scattered multifocal groundglass opacities bilaterally, could reflect edema and/or infectious process. More focal consolidation and/or atelectasis at the right lung base. CBC: WBC count 8.9, hemoglobin 13.8, platelets 194. CMP unremarkable, electrolytes WDL, creatinine 0.67, glucose 77. LFTs unremarkable. Troponin less than 0.012. Did receive a 2 L normal saline fluid bolus previously in the ED. Normal saline continues to infuse at 75 mL/h. Patient was started on Tamiflu 75 mg twice daily. Also, started on a combination of DuoNebs, Symbicort inhailer, and high-dose IV Solu-Medrol. Patient is lethargic and there were concerns for hypercapnic respiratory failure. Follow-up ABG shows a PaO2 of 73, pCO2 of 55, pH of 7.26. The respiratory therapist is going the patient to patient on BiPAP with settings 12/5 and FiO2 40%. Review of Systems Constitutional: Reports chills, Reports fatigue, Reports fever, Reports lethargy, Reports poor appetite, Reports sweats, Denies weight gain, Denies w eight loss Ears, nose, mouth and throat: Reports headache, Reports nasal congestion, Reports nasal discharge, Reports post-nasal drip, Reports sore throat, Denies sinus pain, Denies sinus pressure Cardiovascular: Reports dyspnea on exertion, Denies chest pain, Denies leg edema, Denies lightheadedness, Denies orthopnea, Denies palpitations, Denies p aroxysmal nocturnal dyspnea, Denies syncope Respiratory: Reports congestion, Reports cough, Reports wheezing, Denies cough with sputum, Denies hemoptysis, Denies home oxygen Gastrointestinal: Reports nausea, Reports vomiting, Denies abdominal pain, D enies diarrhea Genitourinary: Reports kidney stones, Denies dysuria, Denies flank pain, Denies hematuria Musculoskeletal: Denies limitation of motion Integumentary: Denies rash Neurological: Denies seizures, Denies syncope Psychiatric: Reports anxiety, Denies depression Past Medical History Past Medical History: Asthma, Coronary Artery Disease (CAD), COPD, Diabetes Mellitus, Hypertension, Myocardial Infarction ([place]) Additional Past Medical History / Comment(s): kidney stones, Last Myocardial Infarction Date:: 2016 History of Any Multi-Drug Resistant Organisms: None Reported Past Surgical History: Ear Surgery, Heart Catheterization, Heart Catheterization With Stent, Hysterectomy Additional Past Surgical History / Comment(s): 2 cardiac stents, cataract and foot surgery Date of Last Stent Placement:: 06/10/2017 Past Psychological History: No Psychological Hx Reported Smoking Status: Current every day smoker Past Alcohol Use History: None Reported Past Drug Use History: Marijuana Medications and Allergies Home Medications Medication Instructions Recorded Confirmed Type Albuterol Inhaler [Ventolin Hfa 2 puff INHALATION RT-Q4H PRN 05/07/24 08/26/24 History Inhaler] Aspirin EC [Ecotrin Low Dose] 81 mg PO DAILY 05/07/24 08/26/24 History Budesonide/Glycopyr/Formoterol 2 puff INHALATION RT-BID 05/07/24 08/26/24 His tory [Breztri Aerosphere Inhaler] Dulaglutide [Trulicity] 0.75 mg SQ FR 05/07/24 08/26/24 History Ergocalciferol (Vitamin D2) 1,250 mcg PO Q30D 05/07/24 08/26/24 History [Drisdol (50,000 Iu)] Glimepiride 4 mg PO DAILY@1600 05/07/24 08/26/24 History Isosorbide Mononitrate ER [Imdur] 30 mg PO DAILY 05/07/24 08/26/24 History Ondansetron [Zofran] 4 mg PO BID PRN 05/07/24 08/26/24 History Rosuvastatin Calcium [Crestor] 40 mg PO HS 05/07/24 08/26/24 History metFORMIN HCL 500 mg PO DAILY@1600 05/07/24 08/26/24 History Clopidogrel [Plavix] 75 mg PO DAILY 90 Days #90 tablet 05/09/24 08/26/24 Rx HYDROcodone/APAP 5-325MG [[place] 1 tab PO Q6HR PRN #12 tab 07/28/24 08/26/24 Rx 5-325] Ibuprofen [Motrin] 600 mg PO Q8HR PRN #24 tab 07/28/24 08/26/24 Rx Tamsulosin [Flomax] 0.4 mg PO DAILY #7 cap 07/28/24 08/26/24 Rx Metoprolol Tartrate [Lopressor] 50 mg PO BID 08/03/24 08/26/24 History polyethylene glycoL 3350 [Miralax] 17 gm PO DAILY 08/03/24 08/26/24 History Amoxic-Pot Clav 875-125Mg 1 tab PO Q12HR 08/26/24 08/26/24 History [Augmentin 875-125] metroNIDAZOLE [Flagyl] 500 mg PO TID 08/26/24 08/26/24 History Allergies Allergy/AdvReac Type Severity Reaction Status Date / Time cephalexin [From Keflex] Allergy Anaphylaxis Verified 08/26/24 18:29 Iodinated Contrast Media Allergy Anaphylaxis Verified 08/26/24 18:29 egg AdvReac Nausea Verified 08/26/24 18:29 Physical Exam Vitals: Vital Signs Temp Pulse Pulse Resp BP BP Pulse Ox 08/27/24 01:47 73 18 105/69 88 L 08/27/24 01:15 08/26/24 23:35 92/50 08/26/24 22:02 71 20 102/65 92 L 02/26/25 20:08 83 20 94/57 93 L 08/26/24 19:36 99.3 F 92 20 96/61 91 L 08/26/24 19:26 89 19 88/54 91 L 08/26/24 18:53 92 08/26/24 18:46 89 08/26/24 18:17 90 08/26/24 18:09 88 08/26/24 18:03 94 L 08/26/24 17:43 101 F H 97 18 107/65 92 L 08/26/24 16:24 102.1 F H 101 H 20 117/66 89 L FiO2 08/27/24 01:47 40 08/27/24 01:15 40 08/26/24 23:35 08/26/24 22:02 08/26/24 20:08 08/26/24 19:36 08/26/24 19:26 08/26/24 18:53 08/26/24 18:46 08/26/24 18:17 08/26/24 18:09 08/26/24 18:03 08/26/24 17:43 08/26/24 16:24 Intake and Output 08/26/24 08/26/24 08/27/24 14:59 22:59 06:59 Other: Weight 73.482 kg GENERAL EXAM: Lethargic, 54-year-old female, awakens to verbal questioning and then falls quickly falls back asleep HEAD: Normocephalic and atraumatic EYES: Normal reaction of pupils, equal size. NOSE: Clear with pink turbinates. THROAT: No erythema or exudates. NECK: No masses, no JVD. CHEST: No chest wall deformity. LUNGS: Equal air entry with expiratory wheezes heard bilaterally throughout. On n 3 L/min nasal cannula. Tachypneic, shallow breathing. CVS: S1 and S2 normal with no audible murmur, regular rhythm. No extra heart sounds ABDOMEN: No hepatosplenomegaly, active bowel sounds, no guarding or rigidity. SPINE: No scoliosis or deformity SKIN: No rashes CENTRAL NERVOUS SYSTEM: No focal deficits, tone is normal in all 4 extremities. EXTREMITIES: There is no peripheral edema, clubbing, or cyanosis. Peripheral pulses are intact. Results - Laboratory Findings CBC and BMP: 08/26/24 16:46 08/26/24 18:01 ABG ABG pH 7.26 (7.35-7.45) L 08/27/24 00:59 ABG pCO2 55 mmHg (35-45) H 08/27/24 00:59 ABG pO2 73 mmHg (83-108) L 08/27/24 00:59 ABG O2 Saturation 93.1 % (94-97) L 08/27/24 00:59 PT/INR, D-dimer PT 11.1 sec (10.0-12.5) 08/26/24 18:42 INR 1.0 (<1.2) 08/26/24 18:42 Abnormal lab findings: Abnormal Labs 08/26/24 08/26/24 08/26/24 16:40 16:46 18:01 Neutrophils # 7.8 H Lymphocytes # 0.5 L ABG pH ABG pCO2 ABG pO2 ABG Total CO2 ABG O2 Saturation Sodium 136 L Calcium 8.2 L C-Reactive Protein Influenza Type A (PCR) Detected A 08/26/24 08/27/24 18:01 00:59 Neutrophils # Lymphocytes # ABG pH 7.26 L ABG pCO2 55 H ABG pO2 73 L ABG Total CO2 26 H ABG O2 Saturation 93.1 L Sodium Calcium C-Reactive Protein 2.9 H Influenza Type A (PCR) - Diagnostic Findings Chest x-ray: image reviewed CT scan - chest: image reviewed Assessment and Plan Assessment: Acute COPD exacerbation secondary to acute influenza A infection Acute hypoxemic and hypercapnic respiratory failure, secondary to above. Chest CTA does not show any central pulmonary embolus. Scattered multifocal groundglass opacities bilaterally, could reflect edema and/or infectious process. More focal consolidation and/or atelectasis at the medial right lung base Hypertension History of hyperlipidemia History of coronary artery disease with previous PCI/stents Diabetes mellitus type 2 History of nephrolithiasis status post lithotripsy Chronic obstructive pulmonary disease, with an FEV1 40% of predicted Chronic ongoing tobacco smoker Plan: Patient's medications, labs, imaging reviewed Place patient on BiPAP, with initial settings 12/5 and FiO2 40% Continue combination of DuoNebs [id number], add budesonide and formoterol inhalations, as well as high-dose IV steroids Continue Tamiflu 75 mg twice daily As needed Tylenol for fever/pain Continue IV maintenance fluids Procalcitonin level pending Monitor Accu-Cheks per protocol GI prophylaxis: Protonix We will continue to follow I have personally seen and examined the patient, performed the documentation and the assessment and plan as written. Number of minutes spent on the visit:20 Time with Patient: Greater than 30
[2024-08-27] MEDS: OSELTAMIVIR 75 MG CAP PO SCH (05:44)
[2024-08-27 06:08] LABS: Glucose,Whole Blood 229 mg/dL (70-110)
[2024-08-27] MEDS: BUDESONIDE 1 MG/2 ML NEBU INHALATION SCH (07:50)
[2024-08-27] MEDS: FORMOTEROL FUMARATE 20 MCG/2 ML NEBU INHALATION SCH (07:50)
[2024-08-27] MEDS: ASPIRIN 81 MG PO SCH (09:18)
[2024-08-27] MEDS: TAMSULOSIN 0.4 MG CAP.ER.24H PO SCH (09:18)
[2024-08-27] MEDS: CLOPIDOGREL 75 MG TAB PO SCH (09:18)
[2024-08-27] MEDS: ISOSORBIDE MONONITRATE ER 30 MG TAB.ER.24H PO SCH (09:18)
[2024-08-27] MEDS: FUROSEMIDE 20 MG TAB PO SCH (09:18)
[2024-08-27] MEDS: polyethylene glycoL 3350 17 GM POWD.PACK PO SCH (09:19)
[2024-08-27] MEDS: PANTOPRAZOLE 40 MG/10 ML VIAL IV SCH (09:19)
[2024-08-27] MEDS: metFORMIN 500 MG TAB PO SCH (15:38)
[2024-08-27] MEDS: GLIMEPIRIDE 4 MG TAB PO SCH (15:38)
[2024-08-27] MEDS: MORPHINE SULFATE 4 MG/ML SYRINGE IV PRN (18:11)
--- NOTE | 2024-08-27 19:50 | HP ---
HISTORY AND PHYSICAL CHIEF COMPLAINT: Difficulty breathing. HISTORY OF PRESENT ILLNESS: This is another admission for this 54-year-old female, who has severe COPD, and continues to smoke. She apparently contracted influenza A and came to the emergency room extremely short of breath. REVIEW OF SYSTEMS: She denies fever, chills, hemoptysis, nausea, vomiting, diarrhea, urinary complaints, etc. Past medical history, family history, personal and social histories are otherwise unchanged from her recent admitting and discharge summaries. PHYSICAL EXAMINATION: VITAL SIGNS: Respirations are 40. Blood pressure is 138/90. GENERAL: She appeared to be very short of breath. She is on BiPAP. CHEST: Demonstrated very poor breath sounds with an increased AP diameter and scattered rales and rhonchi throughout. She had inspiratory and expiratory wheezing. CARDIAC: Demonstrated tachycardia. ABDOMEN: Soft, nontender. EXTREMITIES: Normal. NEUROLOGICAL: She is intact. ASSESSMENT: She is admitted to the hospital with diagnoses of, 1. Acute respiratory failure. 2. Chronic obstructive pulmonary disease. 3. Influenza A. 4. Diabetes mellitus. PLAN: 1. Bedrest. 2. IV fluids. 3. IV and inhaled steroids. 4. Updrafts. 5. Pulmonology consult. MMODL / IJN: [id number] /
[2024-08-27] MEDS: AMOXIC-POT CLAV 875-125MG 1 EACH TAB PO SCH (21:00)
[2024-08-27 22:06] LABS: Glucose,Whole Blood 306 mg/dL (70-110)
[2024-08-27] MEDS ORDERED: DEXTROSE 50% SYRINGE 50 ML IVP PRN ×2 (23:03)
[2024-08-28] MEDS: INSULIN LISPRO (HumaLOG) 100 UNIT/ML 10 mL VL SQ SCH (00:10)
[2024-08-28 06:13] LABS: Glucose,Whole Blood 145 mg/dL (70-110)
[2024-08-28 11:13] LABS: Glucose,Whole Blood 184 mg/dL (70-110)
--- NOTE | 2024-08-28 15:32 | P.PN ---
Subjective Progress Note Date: 08/28/24 Principal diagnosis: Acute exacerbation of COPD secondary to acute influenza A infection Patient is a 54-year-old female with past medical history significant for COPD, chronic ongoing tobacco smoker, hypertension, hyperlipidemia, coronary artery disease with previous PCI/stents, kidney stones, among other things. Her PCP is Dr. Edmondson. Patient does follow in the pulmonary office with Dr. Krause. She does have a history of COPD, and her FEV1 is 40% of predicted. Utilizes a Breztri inhaler, as well as, as needed albuterol rescue inhaler. Continues to smoke "few cigarettes" per day. Patient presented emergency department yesterday afternoon with a chief complaint of flulike symptoms starting approximately 48 hours ago. Tested positive for influenza A on arrival. For this reason, pulmonary consult was placed. Patient currently being evaluated in the emergency department, she is lethargic, responds to verbal questioning, but then falls back asleep. Audible wheezing. On 3 L/min nasal cannula. Apparently, a grandchild was sick with similar symptoms earlier in the week. Approximately 2 days ago, she started to develop runny nose, sore throat, cough and congestion, high fevers, episodes of nausea and vomiting. Did have a Tmax of 102.1 F on arrival. Chest x-ray showing mostly chronic interstitial changes. Chest CTA does not show any central pulmonary embolus. Scattered multifocal groundglass opacities bilaterally, could reflect edema and/or infe ctious process. More focal consolidation and/or atelectasis at the right lung base. CBC: WBC count 8.9, hemoglobin 13.8, platelets 194. CMP unremarkable, electrolytes WDL, creatinine 0.67, glucose 77. LFTs unremarkable. Troponin less than 0.012. Did receive a 2 L normal saline fluid bolus previously in the ED. Normal saline continues to infuse at 75 mL/h. Patient was started on Tamiflu 75 mg twice daily. Also, started on a combination of DuoNebs, Symbicort inhailer, and high-dose IV Solu-Medrol. Patient is lethargic and there were concerns for hypercapnic respiratory failure. Follow-up ABG shows a PaO2 of 73, pCO2 of 55, pH of 7.26. The respiratory therapist is going the patient to patient on BiPAP with settings 12/5 and FiO2 40%. Patient was seen today on 08/28/2024, feeling a little better, less cough less wheezing but nonetheless she is requiring still 6 L nasal cannula, when she came in she was on 15 L high flow cannula. Even on 6 L the patient has an O2 sat of 97%. Clinically much better compared to how she felt when she came in, less cough less wheezing but not back to baseline. On her initial presentation, patient presented with hypoxic and hypercapnic respiratory failure she had to be placed on BiPAP initially now she is on nasal cannula. And again she is not in distress Objective - Vital Signs Vital signs: Vital Signs Temp 98.5 F 08/28/24 11:50 Pulse 65 08/28/24 12:23 Resp 20 08/28/24 11:50 BP 99/61 08/28/24 11:50 Pulse Ox 97 08/28/24 12:14 FiO2 40 08/27/24 11:49 Intake & Output 08/27/24 08/28/24 08/28/24 18:59 06:59 18:59 Intake Total 540 500 Balance 540 500 Weight 73.9 kg Intake: IV 20 Invasive Line 1 20 Oral 540 [id number] Other: Voiding Method Bedside Commode Bedside Commode # Voids 3 2 - Exam GENERAL EXAM: 54-year-old female in no distress on 6 L nasal cannula HEAD: Normocephalic and atraumatic EYES: Normal reaction of pupils, equal size. NOSE: Clear with pink turbinates. THROAT: No erythema or exudates. NECK: No masses, no JVD. CHEST: No chest wall deformity. LUNGS: Scattered wheezing noted bilaterally CVS: S1 and S2 normal with no audible murmur, regular rhythm. No extra heart sounds ABDOMEN: No hepatosplenomegaly, active bowel sounds, no guarding or rigidity. SKIN: No rashes CENTRAL NERVOUS SYSTEM: Alert oriented x 3 no gross focal deficit EXTREMITIES: No clubbing edema or cyanosis - Labs CBC & Chem 7: 08/26/24 16:46 08/26/24 18:01 Labs: Abnormal Lab Results - Last 24 Hours (Table) 08/27/24 08/28/24 08/28/24 Range/Units 22:05 06:12 11:11 POC Glucose (mg/dL) 306 H 145 H 184 H (70-110) mg/dL Microbiology - Last 24 Hours (Table) 08/27/24 05:09 Gram Stain - Preliminary Sputum Sputum Culture - Preliminary Assessment and Plan Assessment: Impression Acute COPD exacerbation secondary to acute influenza A infection Acute hypoxemic and hypercapnic respiratory failure, secondary to above. Chest CTA does not show any central pulmonary embolus. Scattered multifocal groundglass opacities bilaterally, could reflect edema and/or infectious process. Doubt pneumonia based on normal procalcitonin level, the findings are nonspecific Hypertension History of hyperlipidemia History of coronary artery disease with previous PCI/stents Diabetes mellitus type 2 History of nephrolithiasis status post lithotripsy Chronic obstructive pulmonary disease, with an FEV1 40% of predicted Chronic ongoing tobacco smoker Plan: Continue oxygen and titrate accordingly Continue combination of DuoNebs [id number], add budesonide and formoterol inhalations, as well as high-dose IV steroids Continue Tamiflu 75 mg twice daily Continue IV maintenance fluids Monitor Accu-Cheks per protocol GI prophylaxis: Protonix We will continue to follow Time with Patient: Less than 30
[2024-08-28] MEDS: ACETAMINOPHEN TAB 325 MG TAB PO PRN (15:38)
[2024-08-28 16:17] LABS: Glucose,Whole Blood 339 mg/dL (70-110)
[2024-08-28] MEDS ORDERED: NON FORMULARY DRUG (Dulaglutide [Trulicity] 0.75 MG/0.5 ML Each) SQ SCH (18:41)
[2024-08-28 20:31] LABS: Glucose,Whole Blood 314 mg/dL (70-110)
[2024-08-29 06:21] LABS: Glucose,Whole Blood 126 mg/dL (70-110)
[2024-08-29 12:00] LABS: Glucose,Whole Blood 360 mg/dL (70-110)
--- NOTE | 2024-08-29 14:15 | P.PN ---
Subjective Progress Note Date: 08/29/24 Principal diagnosis: Acute exacerbation of COPD secondary to acute influenza A infection Patient is a 54-year-old female with past medical history significant for COPD, chronic ongoing tobacco smoker, hypertension, hyperlipidemia, coronary artery disease with previous PCI/stents, kidney stones, among other things. Her PCP is Dr. Edmondson. Patient does follow in the pulmonary office with Dr. Krause. She does have a history of COPD, and her FEV1 is 40% of predicted. Utilizes a Breztri inhaler, as well as, as needed albuterol rescue inhaler. Continues to smoke "few cigarettes" per day. Patient presented emergency department yesterday afternoon with a chief complaint of flulike symptoms starting approximately 48 hours ago. Tested positive for influenza A on arrival. For this reason, pulmonary consult was placed. Patient currently being evaluated in the emergency department, she is lethargic, responds to verbal questioning, but then falls back asleep. Audible wheezing. On 3 L/min nasal cannula. Apparently, a grandchild was sick with similar symptoms earlier in the week. Approximately 2 days ago, she started to develop runny nose, sore throat, cough and congestion, high fevers, episodes of nausea and vomiting. Did have a Tmax of 102.1 F on arrival. Chest x-ray showing mostly chronic interstitial changes. Chest CTA does not show any central pulmonary embolus. Scattered multifocal groundglass opacities bilaterally, could reflect edema and/or infe ctious process. More focal consolidation and/or atelectasis at the right lung base. CBC: WBC count 8.9, hemoglobin 13.8, platelets 194. CMP unremarkable, electrolytes WDL, creatinine 0.67, glucose 77. LFTs unremarkable. Troponin less than 0.012. Did receive a 2 L normal saline fluid bolus previously in the ED. Normal saline continues to infuse at 75 mL/h. Patient was started on Tamiflu 75 mg twice daily. Also, started on a combination of DuoNebs, Symbicort inhailer, and high-dose IV Solu-Medrol. Patient is lethargic and there were concerns for hypercapnic respiratory failure. Follow-up ABG shows a PaO2 of 73, pCO2 of 55, pH of 7.26. The respiratory therapist is going the patient to patient on BiPAP with settings 12/5 and FiO2 40%. Patient was seen today on 08/28/2024, feeling a little better, less cough less wheezing but nonetheless she is requiring still 6 L nasal cannula, when she came in she was on 15 L high flow cannula. Even on 6 L the patient has an O2 sat of 97%. Clinically much better compared to how she felt when she came in, less cough less wheezing but not back to baseline. On her initial presentation, patient presented with hypoxic and hypercapnic respiratory failure she had to be placed on BiPAP initially now she is on nasal cannula. And again she is not in distress Seen today on 08/29/2024, slight improvement compared to yesterday, but nonetheless continues to cough and wheeze. Her FiO2 requirement is down to 4 L nasal cannula with O2 sats of 94%, patient is hemodynamically stable, does not seem to be in distress. Objective - Vital Signs Vital signs: Vital Signs Temp 98.1 F 08/29/24 04:28 Pulse 71 08/29/24 12:22 Resp 16 08/29/24 12:00 BP 133/62 08/29/24 12:00 Pulse Ox 94 L 08/29/24 12:00 FiO2 40 08/27/24 11:49 Intake & Output 08/28/24 08/29/24 08/29/24 18:59 06:59 18:59 Intake Total 500 20 496 Balance 500 20 496 Weight 73.4 kg Intake: IV 20 20 20 Invasive Line 1 20 20 20 Oral 480 476 Other: Voiding Method Bedside Commode Bedside Commode Bedside Commode # Voids 2 2 - Exam GENERAL EXAM: 54-year-old female in no distress on 4 L nasal cannula HEAD: Normocephalic and atraumatic EYES: Normal reaction of pupils, equal size. NOSE: Clear with pink turbinates. THROAT: No erythema or exudates. NECK: No masses, no JVD. CHEST: No chest wall deformity. LUNGS: Persistent rhonchi and wheezes more so on forced expiratory maneuver noted. CVS: S1 and S2 normal with no audible murmur, regular rhythm. No extra heart sounds ABDOMEN: No hepatosplenomegaly, active bowel sounds, no guarding or rigidity. SKIN: No rashes CENTRAL NERVOUS SYSTEM: Alert oriented x 3 no gross focal deficit EXTREMITIES: No clubbing edema or cyanosis - Labs CBC & Chem 7: 08/26/24 16:46 08/26/24 18:01 Labs: Abnormal Lab Results - Last 24 Hours (Table) 08/28/24 08/28/24 08/29/24 Range/Units 16:15 20:29 06:19 POC Glucose (mg/dL) 339 H 314 H 126 H (70-110) mg/dL 08/29/24 Range/Units 11:56 POC Glucose (mg/dL) 360 H (70-110) mg/dL Microbiology - Last 24 Hours (Table) 08/27/24 05:09 Gram Stain - Final Sputum Sputum Culture - Final Assessment and Plan Assessment: Impression Acute COPD exacerbation secondary to acute influenza A infection Acute hypoxemic and hypercapnic respiratory failure, secondary to above. Chest CTA does not show any central pulmonary embolus. Scattered multifocal groundglass opacities bilaterally, could reflect edema and/or infectious process. Doubt pneumonia based on normal procalcitonin level, the findings are nonspecific Hypertension History of hyperlipidemia History of coronary artery disease with previous PCI/stents Diabetes mellitus type 2 History of nephrolithiasis status post lithotripsy Chronic obstructive pulmonary disease, with an FEV1 40% of predicted Chronic ongoing tobacco smoker Plan: Patient is demonstrating some improvement but clearly not ready for discharge, and I am recommending that we continue inpatient treatment for another 24 hours at least. Continue oxygen and titrate accordingly patient is now down to 4 L she was on 6 L yesterday Continue combination of DuoNebs [id number], add budesonide and formoterol inhalations, as well as high-dose IV steroids Continue Tamiflu 75 mg twice daily Continue IV maintenance fluids Monitor Accu-Cheks per protocol GI prophylaxis: Protonix Considering all the issues noted above, patient has complex situation, and again not ready for discharge. We will continue to follow Time with Patient: Less than 30
[2024-08-29 16:25] LABS: Glucose,Whole Blood 139 mg/dL (70-110)
[2024-08-29 19:47] LABS: Glucose,Whole Blood 253 mg/dL (70-110)
[2024-08-30 06:02] LABS: Glucose,Whole Blood 131 mg/dL (70-110)
[2024-08-30 12:10] LABS: Glucose,Whole Blood 181 mg/dL (70-110)
--- NOTE | 2024-08-30 13:48 | P.PN ---
Subjective Progress Note Date: 08/30/24 Principal diagnosis: Acute exacerbation of COPD secondary to acute influenza A infection Patient is a 54-year-old female with past medical history significant for COPD, chronic ongoing tobacco smoker, hypertension, hyperlipidemia, coronary artery disease with previous PCI/stents, kidney stones, among other things. Her PCP is Dr. Edmondson. Patient does follow in the pulmonary office with Dr. Krause. She does have a history of COPD, and her FEV1 is 40% of predicted. Utilizes a Breztri inhaler, as well as, as needed albuterol rescue inhaler. Continues to smoke "few cigarettes" per day. Patient presented emergency department yesterday afternoon with a chief complaint of flulike symptoms starting approximately 48 hours ago. Tested positive for influenza A on arrival. For this reason, pulmonary consult was placed. Patient currently being evaluated in the emergency department, she is lethargic, responds to verbal questioning, but then falls back asleep. Audible wheezing. On 3 L/min nasal cannula. Apparently, a grandchild was sick with similar symptoms earlier in the week. Approximately 2 days ago, she started to develop runny nose, sore throat, cough and congestion, high fevers, episodes of nausea and vomiting. Did have a Tmax of 102.1 F on arrival. Chest x-ray showing mostly chronic interstitial changes. Chest CTA does not show any central pulmonary embolus. Scattered multifocal groundglass opacities bilaterally, could reflect edema and/or infe ctious process. More focal consolidation and/or atelectasis at the right lung base. CBC: WBC count 8.9, hemoglobin 13.8, platelets 194. CMP unremarkable, electrolytes WDL, creatinine 0.67, glucose 77. LFTs unremarkable. Troponin less than 0.012. Did receive a 2 L normal saline fluid bolus previously in the ED. Normal saline continues to infuse at 75 mL/h. Patient was started on Tamiflu 75 mg twice daily. Also, started on a combination of DuoNebs, Symbicort inhailer, and high-dose IV Solu-Medrol. Patient is lethargic and there were concerns for hypercapnic respiratory failure. Follow-up ABG shows a PaO2 of 73, pCO2 of 55, pH of 7.26. The respiratory therapist is going the patient to patient on BiPAP with settings 12/5 and FiO2 40%. Patient was seen today on 08/28/2024, feeling a little better, less cough less wheezing but nonetheless she is requiring still 6 L nasal cannula, when she came in she was on 15 L high flow cannula. Even on 6 L the patient has an O2 sat of 97%. Clinically much better compared to how she felt when she came in, less cough less wheezing but not back to baseline. On her initial presentation, patient presented with hypoxic and hypercapnic respiratory failure she had to be placed on BiPAP initially now she is on nasal cannula. And again she is not in distress Seen today on 08/29/2024, slight improvement compared to yesterday, but nonetheless continues to cough and wheeze. Her FiO2 requirement is down to 4 L nasal cannula with O2 sats of 94%, patient is hemodynamically stable, does not seem to be in distress. Patient was seen today on 08/30/2024, patient is doing better but not back to baseline. Continues to have intermittent cough and wheezing, remains on oxygen at 4 L with O2 sats of 95%, patient may actually require home O2 but at least for the last few days patient has been titrated down from 15 L down to 5 L and that is an accomplishment. Clinically feeling better. With occasional wheezing. No labs were done today. Objective - Vital Signs Vital signs: Vital Signs Temp 98.6 F 08/30/24 08:00 Pulse 80 08/30/24 12:00 Resp 16 08/30/24 12:00 BP 100/57 08/30/24 12:00 Pulse Ox 95 08/30/24 12:00 FiO2 40 08/27/24 11:49 Intake & Output 08/29/24 08/30/24 08/30/24 18:59 06:59 18:59 Intake Total 976 20 256 Balance 976 20 256 Weight 73 kg Intake: IV 20 20 20 Invasive Line 1 20 20 20 Oral [id number] Other: Voiding Method Bedside Commode Bedside Commode Bedside Commode # Voids 2 1 - Exam GENERAL EXAM: 54-year-old female in no distress on 4 L nasal cannula HEAD: Normocephalic and atraumatic EYES: Normal reaction of pupils, equal size. NOSE: Clear with pink turbinates. THROAT: No erythema or exudates. NECK: No masses, no JVD. CHEST: No chest wall deformity. LUNGS: Persistent rhonchi and wheezes more so on forced expiratory maneuver, CVS: S1 and S2 normal with no audible murmur, regular rhythm. No extra heart sounds ABDOMEN: No hepatosplenomegaly, active bowel sounds, no guarding or rigidity. SKIN: No rashes CENTRAL NERVOUS SYSTEM: Alert oriented x 3 no gross focal deficit EXTREMITIES: No clubbing edema or cyanosis - Labs CBC & Chem 7: 08/26/24 16:46 08/26/24 18:01 Labs: Abnormal Lab Results - Last 24 Hours (Table) 08/29/24 08/29/24 08/30/24 Range/Units 16:24 19:45 05:59 POC Glucose (mg/dL) 139 H 253 H 131 H (70-110) mg/dL 08/30/24 Range/Units 12:08 POC Glucose (mg/dL) 181 H (70-110) mg/dL Microbiology - Last 24 Hours (Table) 08/27/24 05:09 Gram Stain - Final Sputum Sputum Culture - Final Assessment and Plan Assessment: ImpressionAcute COPD exacerbation secondary to acute influenza A infection Acute hypoxemic and hypercapnic respiratory failure, secondary to above. procalcitonin level, the findings on CT of the chest are nonspecific Hypertension History of hyperlipidemia History of coronary artery disease with previous PCI/stents Diabetes mellitus type 2 History of nephrolithiasis status post lithotripsy Chronic obstructive pulmonary disease, with an FEV1 40% of predicted Chronic ongoing tobacco smoker Plan: Continue present supportive care measures Continue oxygen and titrate accordingly patient is now down to 4 L, patient may require home O2 depending on how she is tomorrow Continue combination of DuoNebs [id number], add budesonide and formoterol inhalations, as well as high-dose IV steroids Continue Tamiflu 75 mg twice daily Continue IV maintenance fluids Monitor Accu-Cheks per protocol GI prophylaxis: Protonix We will continue to follow Time with Patient: Less than 30
[2024-08-30 17:16] LABS: Glucose,Whole Blood 227 mg/dL (70-110)
[2024-08-30 20:20] LABS: Glucose,Whole Blood 226 mg/dL (70-110)
[2024-08-31 05:12] VITALS: RESP 18
[2024-08-31 06:10] LABS: Glucose,Whole Blood 115 mg/dL (70-110)
[2024-08-31 11:11] LABS: Glucose,Whole Blood 231 mg/dL (70-110)
[2024-08-31 12:06] VITALS: BP 128/72; TEMP 97.9
[2024-08-31 13:19] VITALS: PULSE 94
--- NOTE | 2024-08-31 14:03 | P.PN ---
Subjective Progress Note Date: 08/31/24 Principal diagnosis: Shortness of breath. Patient is a 54-year-old female with past medical history significant for COPD, chronic ongoing tobacco smoker, hypertension, hyperlipidemia, coronary artery disease with previous PCI/stents, kidney stones, among other things. Her PCP is Dr. Edmondson. Patient does follow in the pulmonary office with Dr. Krause. She does have a history of COPD, and her FEV1 is 40% of predicted. Utilizes a Breztri inhaler, as well as, as needed albuterol rescue inhaler. Continues to smoke "few cigarettes" per day. Patient presented emergency department yesterday afternoon with a chief complaint of flulike symptoms starting approximately 48 hours ago. Tested positive for influenza A on arrival. For this reason, pulmonary consult was placed. Patient currently being evaluated in the emergency department, she is lethargic, responds to verbal questioning, but then falls back asleep. Audible wheezing. On 3 L/min nasal cannula. Apparently, a grandchild was sick with similar symptoms earlier in the week. Approximately 2 days ago, she started to develop runny nose, sore throat, cough and congestion, high fevers, episodes of nausea and vomiting. Did have a Tmax of 102.1 F on arrival. Chest x-ray showing mostly chronic interstitial c hanges. Chest CTA does not show any central pulmonary embolus. Scattered multifocal groundglass opacities bilaterally, could reflect edema and/or infectious process. More focal consolidation and/or atelectasis at the right lung base. CBC: WBC count 8.9, hemoglobin 13.8, platelets 194. CMP unrem arkable, electrolytes WDL, creatinine 0.67, glucose 77. LFTs unremarkable. Troponin less than 0.012. Did receive a 2 L normal saline fluid bolus previously in the ED. Normal saline continues to infuse at 75 mL/h. Patient was started on Tamiflu 75 mg twice daily. Also, started on a combination of DuoNebs, Symbicort inhailer, and high-dose IV Solu-Medrol. Patient is lethargic and there were concerns for hypercapnic respiratory failure. Follow-up ABG shows a PaO2 of 73, pCO2 of 55, pH of 7.26. The respiratory therapist is going the patient to patient on BiPAP with settings 12/5 and FiO2 40%. Patient was seen today on 08/28/2024, feeling a little better, less cough less wheezing but nonetheless she is requiring still 6 L nasal cannula, when she came in she was on 15 L high flow cannula. Even on 6 L the patient has an O2 sat of 97%. Clinically much better compared to how she felt when she came in, less cough less wheezing but not back to baseline. On her initial presentation, serena ent presented with hypoxic and hypercapnic respiratory failure she had to be placed on BiPAP initially now she is on nasal cannula. And again she is not in distress Seen today on 08/29/2024, slight improvement compared to yesterday, but nonetheless continues to cough and wheeze. Her FiO2 requirement is down to 4 L nasal cannula with O2 sats of 94%, patient is hemodynamically stable, does not seem to be in distress. Patient was seen today on 08/30/2024, patient is doing better but not back to al sanders. Continues to have intermittent cough and wheezing, remains on oxygen at 4 L with O2 sats of 95%, patient may actually require home O2 but at least for the last few days patient has been titrated down from 15 L down to 5 L and that is an accomplishment. Clinically feeling better. With occasional wheezing. No labs were done today. Progress note dated August 31, 2024. 54-year-old female that I seen in the office, with COPD. The patient has a history of hypertension, hyperlipidemia, coronary disease, and previous stent placement, among other things. The patient is seen today in room 358. She is currently on 3 L of oxygen, and not receiving any IV fluids. Clinically, the patient is doing much better, and feels like her breathing is much improved. She did test positive for influenza A. No new x-rays, or labs today. Objective - Vital Signs Vital signs: Vital Signs Temp 97.9 F 08/31/24 12:00 Pulse 68 08/31/24 12:49 Resp 18 08/31/24 12:00 BP 128/72 08/31/24 12:00 Pulse Ox 64 L 08/31/24 12:00 FiO2 40 08/27/24 11:49 Intake & Output 08/30/24 08/31/24 08/31/24 18:59 06:59 18:59 Intake Total 374 520 250 Balance 374 520 250 Weight 73.4 kg Intake: IV 20 20 10 Invasive Line 1 20 20 10 Oral 354 500 240 Other: Voiding Method Bedside Commode Bedside Commode Bedside Commode # Voids 2 2 - Exam No acute distress, oriented 3. Currently on 3 L. No respiratory distress. HEENT examination is grossly unremarkable. Mucous membranes are moist. No oral lesions. Neck supple. Full range of motion. No adenopathy thyromegaly or neck vein distention. Cardiovascular examination reveals regular rhythm rate. S1-S2 normal. No S3 or S4. No discernible murmur noted. Lungs reveal mild to moderate scattered expiratory rhonchi and wheezes. Breath sounds equal but diminished throughout. No crackles. Abdomen soft bowel sounds are heard. No masses or tenderness. Extremities are intact. No cyanosis clubbing or edema. Skin is without rash or lesion. Neurologic examination is brief but nonfocal. - Labs CBC & Chem 7: 08/26/24 16:46 08/26/24 18:01 Labs: Abnormal Lab Results - Last 24 Hours (Table) 08/30/24 08/30/24 08/31/24 Range/Units 17:14 20:19 06:08 POC Glucose (mg/dL) 227 H 226 H 115 H (70-110) mg/dL 08/31/24 Range/Units 11:09 POC Glucose (mg/dL) 231 H (70-110) mg/dL Assessment and Plan Assessment: Acute COPD exacerbation, likely triggered, or worsened, by influenza A infection. Acute hypoxemic and hypercapnic respiratory failure secondary to severe COPD. History of benign essential hypertension. History of hyperlipidemia. History of CAD with previous PCI/stents. Diabetes mellitus, type II. History of nephrolithiasis, status post lithotripsy. COPD, with an FEV1 that is 40% of predicted. Chronic and ongoing tobacco use. Plan: Plan dated August 31, 2024. The patient appears to be doing much better. She mentions that she would like to be discharged. I told her to make sure she follows up with me in the office. She is a no code patient. She does have oxygen at home. The patient will finish off Tamiflu 75 mg twice a day for a total of 5 days. Labs, x-rays, and all medications are reviewed. We will continue to follow the patient, make recommendations where appropriate. She should be discharged home on a prednisone burst and taper, with her other usual medications as well. The patient is a DO NOT RESUSCITATE patient. Time with Patient: Less than 30
--- NOTE | 2024-08-31 21:59 | DS ---
DISCHARGE SUMMARY CHIEF COMPLAINT: Difficulty breathing. HISTORY OF PRESENT ILLNESS AND PHYSICAL EXAMINATION: Details of this lady's history and physical can be found in the initial workup. LABORATORY STUDIES: While she was in the hospital, she had laboratory studies, details of which can be found in the laboratory section of her chart. COURSE IN THE HOSPITAL: After admission, she was placed on bedrest, got intravenous fluids, IV and inhaled steroids, and Tamiflu. Shortness of breath improved somewhat and chest slowly began to clear, but she never has a clear chest due to severe COPD and continued smoking. She was doing well enough and she wanted to be discharged on the and she will be sent home on her usual medications, activity, and Medrol Dosepak. She will be seen in the office in several days. FINAL DIAGNOSES: 1. Exacerbation of chronic obstructive pulmonary disease. 2. Influenza A. 3. Uncontrolled diabetes mellitus. 4. Noncompliant patient. OPERATIONS: None. CONSULTATION: None. She is improved. AMANDA / MARC: [id number] /
[2024-09-01] MEDS ORDERED: methylPREDNISolone 4 MG TAB TAPER PO SCH (09:00)
[2024-09-09] MEDS ORDERED: ERGOCALCIFEROL 1,250 MCG (50,000 IU) CAPSULE PO SCH (09:00)
== END 2024-08-31 14:04 | disposition home or self-care (01) | DRG 113 ==
LOC: EC 16:15 → 4SSUR 19:10 → 3SCARD 08-27 01:17
PROVIDERS: ADMIT Family Medicine; ATTEND Family Medicine
DX: J10.1 Influenza due to other identified influenza virus with other respiratory manifestations (principal); J44.1 Chronic obstructive pulmonary disease with (acute) exacerbation; J96.01 Acute respiratory failure with hypoxia; J96.02 Acute respiratory failure with hypercapnia; I25.2 Old myocardial infarction; I25.10 Atherosclerotic heart disease of native coronary artery without angina pectoris; E11.65 Type 2 diabetes mellitus with hyperglycemia; E78.5 Hyperlipidemia, unspecified; F17.210 Nicotine dependence, cigarettes, uncomplicated; I10 Essential (primary) hypertension; Z79.02 Long term (current) use of antithrombotics/antiplatelets; Z79.82 Long term (current) use of aspirin; Z79.84 Long term (current) use of oral hypoglycemic drugs; Z79.899 Other long term (current) drug therapy; Z87.442 Personal history of urinary calculi; Z91.199 Patient's noncompliance with other medical treatment and regimen due to unspecified reason; Z95.5 Presence of coronary angioplasty implant and graft; Z20.822 Contact with and (suspected) exposure to COVID-19; Z88.1 Allergy status to other antibiotic agents; Z91.012 Allergy to eggs; Z91.040 Latex allergy status
CPT/HCPCS: 36415; 36600; 71046; 71275; 80053; 82805; 84145; 84484; 85025; 85610; 85730; 86140; 87070; 87205; 87636; 93005; 94640; 94660; 94760; 96361; 96374; 96375; 96376; 99285

== ENCOUNTER 2024-12-28 13:03 | Observation (INO) | payer OTHER ==
--- NOTE | 2024-12-28 13:24 | ED ---
Abdominal Pain HPI - General Source: patient, RN notes reviewed Mode of arrival: wheelchair Limitations: no limitations <Estuardo Jessica - Last Filed: 12/28/24 13:23> - General Source: patient, RN notes reviewed Mode of arrival: wheelchair Limitations: no limitations - History of Present Illness MD Complaint: abdominal pain <Montse Rust - Last Filed: 12/28/24 19:25> - General Chief Complaint: Abdominal Pain Stated Complaint: Abd Pain/V/N/Dizzy Time Seen by Provider: 12/28/24 13:15 - History of Present Illness Initial Comments: Quick note 54-year-old female presents emergency vaginal interactive abdominal pain. Patient states has makes pain feel better where she associates nausea and vomiting with notable hematuria. Patient states she has a history kidney stones but she states she does have some frequency of urination patient denies reports of fever no chest pain. (Estuadro Jessica) This is a 54-year-old female who presents to the emergency department for abdominal pain. Patient reports right lower quadrant abdominal pain with nausea and vomiting starting yesterday. She does have hematuria that has been going on for about a week. States that this occurs whenever she gets a kidney stone. However, states that the pain does not feel like a kidney stone. She has no radiation of pain into the back. Denies any fevers or chills. Denies any history of pain similar to this in the past. (Montse Rust) - Related Data Home Medications Medication Instructions Recorded Confirmed Albuterol Inhaler [Ventolin Hfa 2 puff INHALATION RT-Q4H PRN 05/07/24 08/26/24 Inhaler] Aspirin EC [Ecotrin Low Dose] 81 mg PO DAILY 05/07/24 08/26/24 Budesonide/Glycopyr/Formoterol 2 puff INHALATION RT-BID 05/07/24 08/26/24 [Breztri Aerosphere Inhaler] Dulaglutide [Trulicity] 0.75 mg SQ FR 05/07/24 08/26/24 Ergocalciferol (Vitamin D2) 1,250 mcg PO Q30D 05/07/24 08/26/24 [Drisdol (50,000 Iu)] Glimepiride 4 mg PO DAILY@1600 05/07/24 08/26/24 Isosorbide Mononitrate ER [Imdur] 30 mg PO DAILY 05/07/24 08/26/24 Ondansetron [Zofran] 4 mg PO BID PRN 05/07/24 08/26/24 Rosuvastatin Calcium [Crestor] 40 mg PO HS 05/07/24 08/26/24 metFORMIN HCL 500 mg PO DAILY@1600 05/07/24 08/26/24 Metoprolol Tartrate [Lopressor] 50 mg PO BID 08/03/24 08/26/24 polyethylene glycoL 3350 [Miralax] 17 gm PO DAILY 08/03/24 08/26/24 Amoxic-Pot Clav 875-125Mg 1 tab PO Q12HR 08/26/24 08/26/24 [Augmentin 875-125] metroNIDAZOLE [Flagyl] 500 mg PO TID 08/26/24 08/26/24 Previous Rx's Medication Instructions Recorded Clopidogrel [Plavix] 75 mg PO DAILY 90 Days #90 tablet 05/09/24 HYDROcodone/APAP 5-325MG [[place] 1 tab PO Q6HR PRN #12 tab 07/28/24 5-325] Ibuprofen [Motrin] 600 mg PO Q8HR PRN #24 tab 07/28/24 Tamsulosin [Flomax] 0.4 mg PO DAILY #7 cap 07/28/24 Furosemide [Lasix] 20 mg PO BID@0900,1600 #60 tab 08/31/24 Ipratropium-Albuterol Nebulize 3 ml INHALATION RT-QID #120 each 08/31/24 [Duoneb 0.5 mg-3 mg/3 ml Soln] methylPREDNISolone Dose Pack 24 mg PO DAILY #1 tab 08/31/24 [Medrol Dose Pack] Allergies Allergy/AdvReac Type Severity Reaction Status Date / Time cephalexin [From Keflex] Allergy Anaphylaxis Verified 12/28/24 13:22 Iodinated Contrast Media Allergy Anaphylaxis Verified 12/28/24 13:22 milk Allergy Nausea & Verified 12/28/24 13:22 Vomiting & Diarrhea egg AdvReac Nausea Verified 12/28/24 13:22 Review of Systems ROS Other: All systems not noted in ROS Statement are negative. <Estuardo Jessica - Last Filed: 12/28/24 13:23> ROS Other: All systems not noted in ROS Statement are negative. <Montse Rust - Last Filed: 12/28/24 19:25> ROS Statement: Those systems with pertinent positive or pertinent negative responses have been documented in the HPI. Past Medical History Past Medical History: Asthma, Coronary Artery Disease (CAD), COPD, Diabetes Mellitus, Hypertension, Myocardial Infarction ([place]) Additional Past Medical History / Comment(s): kidney stones, Last Myocardial Infarction Date:: 2016 History of Any Multi-Drug Resistant Organisms: None Reported Past Surgical History: Ear Surgery, Heart Catheterization, Heart Catheterization With Stent, Hysterectomy Additional Past Surgical History / Comment(s): 2 cardiac stents, cataract and foot surgery Past Anesthesia/Blood Transfusion Reactions: Previous Problems w/ Anesthesia Date of Last Stent Placement:: 06/10/2017 Past Psychological History: No Psychological Hx Reported Smoking Status: Current every day smoker Past Alcohol Use History: None Reported Past Drug Use History: Marijuana <Estuardo Jessica - Last Filed: 12/28/24 13:23> General Exam Limitations: no limitations <Estuardo Jessica - Last Filed: 12/28/24 13:23> Limitations: no limitations General appearance: alert, in no apparent distress Head exam: Present: atraumatic, normocephalic, normal inspection Respiratory exam: Present: normal lung sounds bilaterally. Absent: respiratory distress, wheezes, rales, rhonchi, stridor Cardiovascular Exam: Present: regular rate, normal rhythm GI/Abdominal exam: Present: soft, tenderness (RLQ). Absent: distended Neurological exam: Present: alert, oriented X3, CN II-XII intact Psychiatric exam: Present: normal affect, normal mood Skin exam: Present: warm, dry, intact, normal color. Absent: rash <Montse Rust - Last Filed: 12/28/24 19:25> - General Exam Comments Initial Comments: Visual Physical Exam Vital signs reviewed General: Well-appearing, nontoxic, no acute distress. Head: Normocephalic, atraumatic Eyes: PERRLA, EOMI ENT: Airway patent Chest: Nonlabored breathing Skin: No visual rash, normal skin tone Neuro: Alert and oriented 3 Musculoskeletal: No gross abnormalities (Estuardo Jessica) Course Vital Signs 12/28/24 12/28/24 13:20 19:16 Temperature 98.2 F Pulse Rate 81 72 Respiratory 16 18 Rate Blood Pressure 95/66 106/69 O2 Sat by Pulse 95 100 Oximetry Medical Decision Making <Estuardo Jessica - Last Filed: 12/28/24 13:23> - Lab Data Result diagrams: 12/28/24 14:54 12/28/24 14:54 - Radiology Data Radiology results: report reviewed, image reviewed <UsmankeniaMontse - Last Filed: 12/28/24 19:25> - Medical Decision Making I completed the quick note portion of this chart signed Estuardo Jessica PA-C (Estuardo Jessica) This is a 54 year old female who presents to the emergency department for abdominal pain. Was pt. sent in by a medical professional or institution? @ -No Did you speak to anyone other than the patient for history? @ -No Did you review nursing and triage notes? @ -Yes, and I agree, it is accurate with regards to the patient's symptoms. Were old charts reviewed? @ -No Differential Diagnosis? @ -Differential Abdominal Pain Women: Appendicitis, Cholecystitis, diverticulosis, ischemic bowel, pancreatitis, hepatitis, UTI, gastroenteritis, AAA, incarcerated hernia, bowel obstruction, constipation, inflammatory bowel, hepatitis, peptic ulcer disease, splenic infarction, perforated viscus, vulvitis, ovarian torsion, PID, kidney stone, placenta abruption, this is not meant to be an all-inclusive list EKG interpreted by me (3pts min.)? @ -Pending at admission X-rays interpreted by me (1pt min.)? @ -Not obtained CT interpreted by me (1pt min.)? @ -CT scan of the abdomen and pelvis obtained. My interpretation identifies no bowel wall thickening or free air. U/S interpreted by me (1pt. min.)? @ -Not obtained What testing was considered but not performed? (CT, X-rays, U/S, labs)? Why? @ -None What meds were considered but not given? Why? @ -None Did you discuss the management of the patient with other professionals? @ -Yes, Dr. Peterson, who advised admission with repeat CT scan with oral contrast tomorrow. Did you reconcile home meds? @ -No Was smoking cessation discussed for >3mins.? @ -No Was critical care preformed (if so, how long)? @ -No Were there social determinants of health that impacted care today? How? (Homelessness, low income, unemployed, alcoholism, drug addiction, transportation, low edu. Level, literacy, decrease access to med. care, custodial, rehab)? @ -No Was there de-escalation of care discussed even if they declined? (Discuss DNR or withdrawal of care, Hospice)? @ -No What co-morbidities impacted this encounter? (DM, HTN, Smoking, COPD, CAD, Cancer, CVA, Hep., AIDS, mental health diagnosis, sleep apnea, morbid obesity)? @ -CAD, DM Was patient admitted / discharged? @ -Admitted. Lab demonstrates mild hypokalemia with potassium of 3.2 and is otherwise unremarkable. 40 mEq of K-dur administered. Urinalysis contains a large amount of blood but is not suggestive of infection. CT scan of the abdomen and pelvis demonstrates no dilation of the appendix, however there is some subtle surrounding fat stranding. They advised that this could be seen with early acute appendicitis and advised clinical correlation. She does also have a right renal pelvis calculus, however this is not obstructing and there is no hydronephrosis. Case discussed with general surgery who advised admission wi th repeat CT scan using oral contrast tomorrow. Patient was started on metronidazole and Levaquin due to possible appendicitis. CT scan with oral contrast ordered to be completed tomorrow morning. Medicine consulted for medical management. Case discussed with ED attending Dr. Edmond. Undiagnosed new problem with uncertain prognosis? @ -None Drug Therapy requiring intensive monitoring for toxicity (Heparin, Nitro, Insulin, Cardizem)? @ -None Were any procedures done? @ -None Diagnosis/symptom? @ -Possible appendicitis Acute, or Chronic, or Acute on Chronic? @ -Acute Uncomplicated (without systemic symptoms) or Complicated (systemic symptoms)? @ -Uncomplicated Side effects of treatment? @ -None Exacerbation, Progression, or Severe Exacerbation] @ -Not applicable Poses a threat to life or bodily function? @ -Yes, can lead to life-threatening infection (Montse Rust) - Lab Data Lab Results 12/28/24 12/28/24 12/28/24 Range/Units 14:54 14:54 16:51 WBC 8.29 (4.50-10.00) 10*3/uL RBC 5.16 (4.10-5.20) 10*6/uL Hgb 15.0 (12.0-15.0) g/dL Hct 45.6 (37.2-46.3) % MCV 88.4 (80.0-97.0) fL MCH 29.1 (27.0-32.0) pg MCHC 32.9 (32.0-37.0) g/dL Plt Count 243 (140-440) 10*3/uL MPV 9.8 (9.5-12.2) fL Immature Gran % (Auto) 0.6 % Neutrophils % 61.3 % Lymphocytes % 31.7 % Monocytes % 4.8 % Eosinophils % 1.2 % Basophils % 0.4 % Immature Gran # 0.05 H (0.00-0.04) 10*3/uL Neutrophils # 5.08 (1.80-7.70) 10*3/uL Lymphocytes # 2.63 (0.90-5.00) 10*3/uL Monocytes # 0.40 (0.20-1.00) 10*3/uL Eosinophils # 0.10 (0.04-0.35) 10*3/uL Basophils # 0.03 (0.00-0.10) 10*3/uL Sodium 141 (137-145) mmol/L Potassium 3.2 L (3.5-5.1) mmol/L Chloride 102 (98-107) mmol/L Carbon Dioxide 31 H (22-30) mmol/L Anion Gap 8 mmol/L BUN 7 (7-17) mg/dL Creatinine 0.93 (0.52-1.04) mg/dL Est GFR (CKD-EPI)AfAm 80 (>60 ml/min/1.73 sqM) Est GFR (CKD-EPI)NonAf 69 (>60 ml/min/1.73 sqM) Glucose 97 (74-99) mg/dL POC Glucose (mg/dL) 74 (70-110) mg/dL POC Glu Museum Specialist ID [place] Calcium 9.4 (8.4-10.2) mg/dL Total Bilirubin 1.0 (0.2-1.3) mg/dL AST 21 (14-36) U/L ALT 10 (4-34) U/L Alkaline Phosphatase 144 H (38-126) U/L Total Protein 6.8 (6.3-8.2) g/dL Albumin 4.2 (3.5-5.0) g/dL Lipase 33 (23-300) U/L Urine Color Urine Appearance (Clear) Urine pH (5.0-8.0) Ur Specific [place] (1.001-1.035) Urine Protein (Negative) Urine Glucose (UA) (Negative) Urine Ketones (Negative) Urine Blood (Negative) Urine Nitrite (Negative) Urine Bilirubin (Negative) Urine Urobilinogen (<2.0) mg/dL Ur Leukocyte Esterase (Negative) Urine RBC (0-5) /hpf Urine WBC (0-5) /hpf Ur Squamous Epith Cells (0-4) /hpf Calcium Oxalate Crystal (None) /hpf Urine Mucus (None) /hpf 12/28/ Range/Units 17:30 WBC (4.50-10.00) 10*3/uL RBC (4.10-5.20) 10*6/uL Hgb (12.0-15.0) g/dL Hct (37.2-46.3) % MCV (80.0-97.0) fL MCH (27.0-32.0) pg MCHC (32.0-37.0) g/dL Plt Count (140-440) 10*3/uL MPV (9.5-12.2) fL Immature Gran % (Auto) % Neutrophils % % Lymphocytes % % Monocytes % % Eosinophils % % Basophils % % Immature Gran # (0.00-0.04) 10*3/uL Neutrophils # (1.80-7.70) 10*3/uL Lymphocytes # (0.90-5.00) 10*3/uL Monocytes # (0.20-1.00) 10*3/uL Eosinophils # (0.04-0.35) 10*3/uL Basophils # (0.00-0.10) 10*3/uL Sodium (137-145) mmol/L Potassium (3.5-5.1) mmol/L Chloride (98-107) mmol/L Carbon Dioxide (22-30) mmol/L Anion Gap mmol/L BUN (7-17) mg/dL Creatinine (0.52-1.04) mg/dL Est GFR (CKD-EPI)AfAm (>60 ml/min/1.73 sqM) Est GFR (CKD-EPI)NonAf (>60 ml/min/1.73 sqM) Glucose (74-99) mg/dL POC Glucose (mg/dL) (70-110) mg/dL POC Glu Museum Specialist ID Calcium (8.4-10.2) mg/dL Total Bilirubin (0.2-1.3) mg/dL AST (14-36) U/L ALT (4-34) U/L Alkaline Phosphatase (38-126) U/L Total Protein (6.3-8.2) g/dL Albumin (3.5-5.0) g/dL Lipase (23-300) U/L Urine Color Yellow Urine Appearance Cloudy H (Clear) Urine pH 7.0 (5.0-8.0) Ur Specific [place] 1.011 (1.001-1.035) Urine Protein 1+ H (Negative) Urine Glucose (UA) Negative (Negative) Urine Ketones Negative (Negative) Urine Blood Large H (Negative) Urine Nitrite Negative (Negative) Urine Bilirubin Negative (Negative) Urine Urobilinogen <2.0 (<2.0) mg/dL Ur Leukocyte Esterase Negative (Negative) Urine RBC >182 H (0-5) /hpf Urine WBC 1 (0-5) /hpf Ur Squamous Epith Cells 5 H (0-4) /hpf Calcium Oxalate Crystal Rare H (None) /hpf Urine Mucus Rare H (None) /hpf Disposition <Estuardo Jessica - Last Filed: 12/28/24 13:23> <Montse Rust - Last Filed: 12/28/24 19:25> Clinical Impression: Acute appendicitis Disposition: ADMITTED IP TO THIS HOSP
[2024-12-28 15:02] LABS: Basophils # (A) 0.03 10*3/uL (0.00-0.10); Basophils % (A) 0.4 %; Eosinophils # (A) 0.10 10*3/uL (0.04-0.35); Eosinophils % (A) 1.2 %; HCT 45.6 % (37.2-46.3); HGB 15.0 g/dL (12.0-15.0); Lymphocytes # (A) 2.63 10*3/uL (0.90-5.00); Lymphocytes % (A) 31.7 %; MCH 29.1 pg (27.0-32.0); MCHC 32.9 g/dL (32.0-37.0); MCV 88.4 fL (80.0-97.0); Monocytes # (A) 0.40 10*3/uL (0.20-1.00); Monocytes % (A) 4.8 %; Neutrophils # (A) 5.08 10*3/uL (1.80-7.70); Neutrophils % (A) 61.3 %; Platelet Count 243 10*3/uL (140-440); RBC 5.16 10*6/uL (4.10-5.20); RDW 14.2 % (11.5-14.5); WBC 8.29 10*3/uL (4.50-10.00)
[2024-12-28 15:17] LABS: ALT 10 U/L (4-34); AST 21 U/L (14-36); African American GFR (CKD) 80 (>60 ml/min/1.73 sqM); Albumin 4.2 g/dL (3.5-5.0); Alkaline Phosphatase 144 U/L (38-126); Anion Gap 8 mmol/L; Blood Urea Nitrogen 7 mg/dL (7-17); Calcium 9.4 mg/dL (8.4-10.2); Carbon Dioxide 31 mmol/L (22-30); Chloride 102 mmol/L (98-107); Glucose 97 mg/dL (74-99); Lipase 33 U/L (23-300); Non-African American GFR(CKD) 69 (>60 ml/min/1.73 sqM); Potassium 3.2 mmol/L (3.5-5.1); Sodium 141 mmol/L (137-145); Total Protein 6.8 g/dL (6.3-8.2)
[2024-12-28 16:52] LABS: Glucose,Whole Blood 74 mg/dL (70-110)
[2024-12-28] MEDS: MORPHINE SULFATE 4 MG/ML SYRINGE IVP STA (17:39)
[2024-12-28] MEDS: ONDANSETRON 4 MG/2 ML VIAL IVP STA (17:39)
[2024-12-28] MEDS: SODIUM CHLORIDE 0.9% 1,000 ML IV ONE (17:40)
[2024-12-28 18:03] LABS: Bilirubin,Urine Negative (Negative); Blood,Urine Large (Negative); Calcium Oxalate Crystals,Urine Rare /hpf; Color,Urine Yellow; Glucose,Urine (UA) Negative (Negative); Ketones,Urine Negative (Negative); Leukocyte Esterase,Urine Negative (Negative); Mucus,Urine Rare /hpf; Nitrite,Urine Negative (Negative); PH, Urine 7.0 (5.0-8.0); Protein,Urine 1+ (Negative); RBC,Urine >182 /hpf (0-5); Specific Gravity,Urine 1.011 (1.001-1.035); Squamous Epithelial Cell,Urine 5 /hpf (0-4); Urobilinogen,Urine <2.0 mg/dL (<2.0); WBC,Urine 1 /hpf (0-5)
--- NOTE | 2024-12-28 18:12 | CT ---
EXAMINATION TYPE: CT abdomen pelvis wo con CT DLP: 535.7 mGycm, Automated exposure control for dose reduction was used. DATE OF EXAM: 12/28/2024 5:36 PM COMPARISON: CTA chest 08/26/2024, CT abdomen and pelvis 08/11/2024, 08/03/2024, 07/28/2024 CLINICAL INDICATION:Female, 54 years old with history of right flank pain; RIGHT FLANK PAIN TECHNIQUE: Standard CT of the abdomen and pelvis without IV or oral contrast. Lack of IV or oral co ntrast limits evaluation of solid and hollow organ viscera. Coronal and sagittal reformats were perfo rmed. FINDINGS: LOWER CHEST: Partial visualization of pulmonary fibrotic changes most pronounced within the visualize d right middle lobe. No focal consolidation. RCA calcifications identified. ABDOMEN LIVER: Unremarkable noncontrast appearance. GALLBLADDER AND BILE DUCTS: Unremarkable noncontrast appearance. PANCREAS: Unremarkable noncontrast appearance. SPLEEN: Unremarkable noncontrast appearance. ADRENAL GLANDS: Unremarkable noncontrast appearance.. KIDNEYS AND URETERS: No evidence of hydronephrosis. No left renal calculi. Couple of nonobstructing r ight renal calculi measuring up to 3 mm. There is a 3 mm calculus within the right renal pelvis. No u reteral calculus or hydroureter identified. PELVIS BLADDER: Underdistended but grossly unremarkable. REPRODUCTIVE: The uterus is surgically absent. ABDOMEN & PELVIS STOMACH AND BOWEL: Stomach and duodenum are unremarkable. Few scattered sigmoid diverticula without e vidence for acute diverticulitis. No focal bowel wall thickening or surrounding inflammatory changes. Nondilated appendix with some subtle surrounding fat stranding (series 201, image 91). No evidence o f bowel obstruction. PERITONEUM: No evidence of pneumoperitoneum or free fluid. VASCULATURE: Mild atherosclerotic calcifications are present throughout the abdominal aorta and its b ranches. No evidence of aortic aneurysm. MUSCULOSKELETAL: No acute osseous abnormalities LYMPH NODES: No gross evidence for lymphadenopathy. SOFT TISSUE/ABDOMINAL WALL: Unremarkable IMPRESSION: 1. Nondilated appendix with some subtle surrounding fat stranding. This could be seen with early acu te appendicitis. Correlate clinically. 2. Right renal pelvis nonobstructing 3 mm calculus. Additional nonobstructing right renal calculi latosha suring up to 3 mm. 3. Colonic diverticulosis without evidence for acute diverticulitis. [facility], , 12/28/2024 6:09 PM
[2024-12-28] MEDS ORDERED: BARIUM SULFATE 2% - 450 ML ORAL.SUSP BOTTLE PO PRN (18:26)
[2024-12-28] MEDS ORDERED: HYDROmorphone 1 MG/ML 1 ML SYRINGE IVP PRN (18:32)
[2024-12-28] MEDS ORDERED: NALOXONE 0.4 MG/ML 1 ML VIAL IV PRN (18:32)
[2024-12-28] MEDS: HYDROmorphone 1 MG/ML 1 ML SYRINGE IVP STA (18:44)
[2024-12-28] MEDS: LEVOFLOXACIN 750MG-D5W PMX 750 MG in DEXTROSE/WATER 1 150ML.BAG IVPB SCH (18:46)
[2024-12-28] MEDS: metroNIDAZOLE-NS PMX 500 MG in SALINE 1 100ML.BAG IVPB SCH (18:50)
[2024-12-28] MEDS: ONDANSETRON 4 MG/2 ML VIAL IVP PRN (19:38)
[2024-12-28] MEDS: POTASSIUM CHLORIDE ER 20 MEQ TAB.ER PO STA (20:26)
[2024-12-28] MEDS: SODIUM CHLORIDE 0.9% 1,000 ML IV STA (20:36)
[2024-12-28] MEDS: POTASSIUM CHLORIDE 20 MEQ in WATER FOR INJECTION 1 100ML.BAG IVPB STA (21:21)
[2024-12-29 08:13] LABS: Basophils # (A) 0.01 10*3/uL (0.00-0.10); Basophils % (A) 0.2 %; Eosinophils # (A) 0.04 10*3/uL (0.04-0.35); Eosinophils % (A) 0.9 %; HCT 37.5 % (37.2-46.3); Lymphocytes # (A) 1.52 10*3/uL (0.90-5.00); Lymphocytes % (A) 33.9 %; MCH 29.5 pg (27.0-32.0); MCHC 31.7 g/dL (32.0-37.0); MCV 92.8 fL (80.0-97.0); Monocytes # (A) 0.31 10*3/uL (0.20-1.00); Monocytes % (A) 6.9 %; Neutrophils # (A) 2.58 10*3/uL (1.80-7.70); Neutrophils % (A) 57.4 %; Platelet Count 163 10*3/uL (140-440); RBC 4.04 10*6/uL (4.10-5.20); RDW 14.1 % (11.5-14.5); WBC 4.49 10*3/uL (4.50-10.00)
[2024-12-29] MEDS: methylPREDNISolone SOD SUCCI 125 MG/2 ML VIAL IV STA (08:19)
[2024-12-29 08:21] LABS: HGB 11.9 g/dL (12.0-15.0)
[2024-12-29 09:13] LABS: African American GFR (CKD) 79 (>60 ml/min/1.73 sqM); Anion Gap 5 mmol/L; Blood Urea Nitrogen 7 mg/dL (7-17); Calcium 8.6 mg/dL (8.4-10.2); Carbon Dioxide 29 mmol/L (22-30); Chloride 108 mmol/L (98-107); Glucose 63 mg/dL (74-99); Non-African American GFR(CKD) 68 (>60 ml/min/1.73 sqM); Potassium 3.8 mmol/L (3.5-5.1); Sodium 142 mmol/L (137-145)
--- NOTE | 2024-12-29 11:20 | P.GSHP ---
History of Present Illness H&P Date: 12/29/24 CHIEF COMPLAINT: Abdominal pain HISTORY OF PRESENT ILLNESS: This is a 54-year-old female who presented with right right sided abdominal pain x 2 days. She does report that the pain is more in the right lower quadrant she has had nausea and vomiting. She has a known history of kidney stones and a history of gallbladder dysfunction. Patient reports that she has been feeling very dizzy and more pain and nausea with movement. Denies any history of vertigo. She does take Plavix for coronary artery disease and cardiac stents. Last dose of Plavix was yesterday morning. She had a CT scan abdomen pelvis completed without contrast that had reported subtle surrounding fat stranding consider early appendicitis. And evidence of right kidney stone. Urinalysis did report large amount of blood. Patient does report pain feels different than a kidney stone. Past surgical history includes hysterectomy, and tubal ligation. PAST MEDICAL HISTORY: See below. History of CA in 2017 PAST SURGICAL HISTORY: See below MEDICATIONS: See below ALLERGIES: See below SOCIAL HISTORY: No illicit drug use. REVIEW OF SYSTEMS: CONSTITUTIONAL: Denies fever or chills. HEENT: Denies blurred vision, vision changes, or eye pain. Denies hemoptysis CARDIOVASCULAR: Denies chest pain or pressure. RESPIRATORY: No shortness of breath. GASTROINTESTINAL: See HPI for pertinent findings HEMATOLOGIC: Denies bleeding disorders. GENITOURINARY: Denies any blood in urine or increased urinary frequency. SKIN: Denies pruitis. Denies rash. PHYSICAL EXAM: VITAL SIGNS: Reviewed GENERAL: Well-developed in no acute distress. HEENT: No sclera icterus. Extraocular movements grossly intact. Moist buccal mucosa. Head is atraumatic, normocephalic. No nasal drainage. ABDOMEN: Soft. Nondistended. Tenderness palpation right side of abdomen including right upper quadrant right mid abdomen and right lower quadrant. More tender in the right lower quadrant see NEUROLOGIC: Alert and oriented. Cranial nerves II through XII grossly intact. LABORATORY DATA: WBC 4.49 Hgb 11.9 platelets 163 Sodium 142 potassium 3.8 creatinine 0.94 Urinalysis large amount of blood IMAGING: CT scan abdomen pelvis reports a nondilated appendix with some subtle surrounding fat stranding. This could be seen with early acute appendicitis. Right renal pelvic nonobstructing 3 mm calculus. Additional nonobstructing right renal calculi measuring up to 3 mm. Colonic diverticulosis ASSESSMENT: 1. Right sided abdominal pain with CT scan reporting subtle surrounding fat stranding could be seen with early acute appendicitis 2. Hypokalemia improved PLAN: - CT scan abdomen pelvis with oral and IV contrast ordered. Patient received medications for iodine allergy - Keep patient n.p.o. - Continue IV antibiotics - Continue IV fluids - Continue antiemetics - Continue pain management - Patient tentatively scheduled for laparoscopic appendectomy today with Dr. Peterson Physician Patent Prosecution Paralegal note has been reviewed by physician. Signing provider agrees with the documented findings, assessment, and plan of care. I have personally seen and examined the patient, reviewed the SEO SPECIALIST /PAs history, exam and MDM and agree with the assessment and plan as written. Based on total visit time, I have performed more than 50% of the visit. As above: Patient came in with right lower quadrant abdominal pain. Some suprapubic pain as well. Also has some chronic right upper quadrant discomfort that she says is related to her gallbladder. Patient's CAT scan yesterday evening was done without oral or IV contrast and it was difficult to say with certainty where the appendix was. The patient has a fairly mobile cecum. On today's contrast study you can see the appendix actually the left of midline. Last night it was just right of midline. There definitely is some mild periappendiceal inflammatory changes. There is no appendicolith. Clinical scenario discussed in detail with the patient. We did discuss the options of antibiotic therapy and nonsurgical management but the patient states she has had this pain previously and would like to proceed with removal. I think that is reasonable. Will proceed with laparoscopic, possible open appendectomy at this time. Risks of bleeding, infection, abscess, bladder and bowel injury, hernia, conversion to an open procedure all reviewed. She understands and wishes to proceed. Past Medical History Past Medical History: Asthma, Coronary Artery Disease (CAD), COPD, Diabetes Mellitus, Hypertension, Myocardial Infarction (CA) Additional Past Medical History / Comment(s): kidney stones, Last Myocardial Infarction Date:: 2016 History of Any Multi-Drug Resistant Organisms: None Reported Past Surgical History: Ear Surgery, Heart Catheterization, Heart Catheterization With Stent, Hysterectomy Additional Past Surgical History / Comment(s): 2 cardiac stents, cataract and foot surgery Past Anesthesia/Blood Transfusion Reactions: Previous Problems w/ Anesthesia Date of Last Stent Placement:: 06/10/2017 Past Psychological History: No Psychological Hx Reported Smoking Status: Current every day smoker Past Alcohol Use History: None Reported Past Drug Use History: Marijuana Medications and Allergies Home Medications Medication Instructions Recorded Confirmed Type Albuterol Inhaler [Ventolin Hfa 2 puff INHALATION RT-Q4H PRN 05/07/24 12/28/24 History Inhaler] Aspirin EC [Ecotrin Low Dose] 81 mg PO DAILY 05/07/24 12/28/24 History Budesonide/Glycopyr/Formoterol 2 puff INHALATION RT-BID 05/07/24 12/28/24 History [Breztri Aerosphere Inhaler] Dulaglutide [Trulicity] 0.75 mg SQ WE 05/07/24 12/28/24 History Glimepiride 4 mg PO DAILY@1200 05/07/24 12/28/24 History Isosorbide Mononitrate ER [Imdur] 30 mg PO DAILY 05/07/24 12/28/24 History Ondansetron [Zofran] 4 mg PO TID PRN 05/07/24 12/28/24 History Rosuvastatin Calcium [Crestor] 40 mg PO HS 05/07/24 12/28/24 History metFORMIN HCL 250 mg PO BID 05/07/24 12/28/24 History Clopidogrel [Plavix] 75 mg PO DAILY 90 Days #90 tablet 05/09/24 12/28/24 Rx Metoprolol Tartrate [Lopressor] 50 mg PO BID-W/MEALS 08/03/24 12/28/24 History Furosemide [Lasix] 20 mg PO DAILY 12/28/24 12/28/24 History Ipratropium-Albuterol Nebulize 3 ml INHALATION RT-QID PRN 12/28/24 12/28/24 History [Duoneb 0.5 mg-3 mg/3 ml Soln] Allergies Allergy/AdvReac Type Severity Reaction Status Date / Time cephalexin [From Keflex] Allergy Anaphylaxis Verified 12/28/24 20:25 Iodinated Contrast Media Allergy Anaphylaxis Verified 12/28/24 20:25 milk Allergy Nausea & Verified 12/28/24 20:25 Vomiting & Diarrhea egg AdvReac Nausea Verified 12/28/24 20:25 Surgical - Exam Vital Signs Temp Pulse Resp BP Pulse Ox 98.2 F 81 16 95/66 95 12/28/24 13:20 12/28/24 13:20 12/28/24 13:20 12/28/24 13:20 12/28/24 13:20 Results - Labs 12/29/24 07:54 12/29/24 07:54 Abnormal Lab Results - Last 24 Hours (Table) 12/28/24 12/28/24 12/28/24 Range/Units 14:54 14:54 17:30 WBC (4.50-10.00) 10*3/uL RBC (4.10-5.20) 10*6/uL Hgb (12.0-15.0) g/dL MCHC (32.0-37.0) g/dL Immature Gran # 0.05 H (0.00-0.04) 10*3/uL Potassium 3.2 L (3.5-5.1) mmol/L Chloride (98-107) mmol/L Carbon Dioxide 31 H (22-30) mmol/L Glucose (74-99) mg/dL Alkaline Phosphatase 144 H (38-126) U/L Urine Appearance Cloudy H (Clear) Urine Protein 1+ H (Negative) Urine Blood Large H (Negative) Urine RBC >182 H (0-5) /hpf Ur Squamous Epith Cells 5 H (0-4) /hpf Calcium Oxalate Crystal Rare H (None) /hpf Urine Mucus Rare H (None) /hpf 12/29/24 12/29/24 Range/Units 07:54 07:54 WBC 4.49 L (4.50-10.00) 10*3/uL RBC 4.04 L (4.10-5.20) 10*6/uL Hgb 11.9 L D (12.0-15.0) g/dL MCHC 31.7 L (32.0-37.0) g/dL Immature Gran # (0.00-0.04) 10*3/uL Potassium (3.5-5.1) mmol/L Chloride 108 H (98-107) mmol/L Carbon Dioxide (22-30) mmol/L Glucose 63 L (74-99) mg/dL Alkaline Phosphatase (38-126) U/L Urine Appearance (Clear) Urine Protein (Negative) Urine Blood (Negative) Urine RBC (0-5) /hpf Ur Squamous Epith Cells (0-4) /hpf Calcium Oxalate Crystal (None) /hpf Urine Mucus (None) /hpf Diabetes panel 12/28/24 12/29/24 Range/Units 14:54 07:54 Sodium 141 142 (137-145) mmol/L Potassium 3.2 L 3.8 (3.5-5.1) mmol/L Chloride 102 108 H (98-107) mmol/L Carbon Dioxide 31 H 29 (22-30) mmol/L BUN 7 7 (7-17) mg/dL Creatinine 0.93 0.94 (0.52-1.04) mg/dL Glucose 97 63 L (74-99) mg/dL Calcium 9.4 8.6 (8.4-10.2) mg/dL AST 21 (14-36) U/L ALT 10 (4-34) U/L Alkaline Phosphatase 144 H (38-126) U/L Total Protein 6.8 (6.3-8.2) g/dL Albumin 4.2 (3.5-5.0) g/dL Calcium panel 12/28/24 12/29/24 Range/Units 14:54 07:54 Calcium 9.4 8.6 (8.4-10.2) mg/dL Albumin 4.2 (3.5-5.0) g/dL Pituitary panel 12/28/24 12/29/24 Range/Units 14:54 07:54 Sodium 141 142 (137-145) mmol/L Potassium 3.2 L 3.8 (3.5-5.1) mmol/L Chloride 102 108 H (98-107) mmol/L Carbon Dioxide 31 H 29 (22-30) mmol/L BUN 7 7 (7-17) mg/dL Creatinine 0.93 0.94 (0.52-1.04) mg/dL Glucose 97 63 L (74-99) mg/dL Calcium 9.4 8.6 (8.4-10.2) mg/dL Adrenal panel 12/28/24 12/29/24 Range/Units 14:54 07:54 Sodium 141 142 (137-145) mmol/L Potassium 3.2 L 3.8 (3.5-5.1) mmol/L Chloride 102 108 H (98-107) mmol/L Carbon Dioxide 31 H 29 (22-30) mmol/L BUN 7 7 (7-17) mg/dL Creatinine 0.93 0.94 (0.52-1.04) mg/dL Glucose 97 63 L (74-99) mg/dL Calcium 9.4 8.6 (8.4-10.2) mg/dL Total Bilirubin 1.0 (0.2-1.3) mg/dL AST 21 (14-36) U/L ALT 10 (4-34) U/L Alkaline Phosphatase 144 H (38-126) U/L Total Protein 6.8 (6.3-8.2) g/dL Albumin 4.2 (3.5-5.0) g/dL
[2024-12-29] MEDS ORDERED: IPRATROPIUM-ALBUTEROL 3 ML NEB INHALATION PRN (11:26)
[2024-12-29 11:45] LABS: Glucose,Whole Blood 78 mg/dL (70-110)
[2024-12-29] MEDS: HYDROmorphone 0.5 MG/0.5 ML SYRINGE IVP PRN (13:42)
[2024-12-29] MEDS: diphenhydrAMINE 50 MG/ML 1 ML VIAL IVP STA (14:06)
[2024-12-29] MEDS: FAMOTIDINE 20 MG/2 ML VIAL IV STA (14:06)
--- NOTE | 2024-12-29 15:09 | CT ---
EXAMINATION TYPE: CT abdomen pelvis w con DATE OF EXAM: 12/29/2024 COMPARISON: 12/28/2024 CLINICAL INDICATION: Female, 54 years old with history of RLQ pain, possible early appy on CT w/o; PH H, RLQ pain, abnormal prior TECHNIQUE: Performed with Oral Contrast and with IV Contrast, patient injected with 100 mL of Isovue 300. CT DLP: 996.[address] CTDI: mGy Automated exposure control for dose reduction was used. FINDINGS: There are chronic interstitial changes with bronchiectasis in the lower lobes.. There is no new airsp chriss consolidation or mass in the visualized lung bases. The gallbladder is normal without distention, wall thickening, pericholecystic fluid or gallstones. T here is no biliary ductal dilatation. There is no focal mass or organomegaly involving the liver, pancreas, spleen or adrenal glands. There is no solid renal mass or hydronephrosis and there is homogeneous contrast enhancement of the r enal parenchyma. There are 3 nonobstructing right renal calcifications largest of which is 4.6 mm. Th e caliber the abdominal aorta is normal and there is no retroperitoneal adenopathy or hemorrhage. The bowel loops are normal in caliber and there is no evidence of dilatation or obstruction. No infla mmatory changes are identified in the bowel wall or mesentery. There is no evidence of appendicitis. There is no free intraperitoneal air or fluid. No pelvic mass, free fluid, abscess or adenopathy. The osseous structures and soft tissues are intact. IMPRESSION: 1. No acute changes within the abdomen or pelvis. 2. Multiple nonobstructing right renal calcifications. [facility], , 12/29/2024 3:07 PM
[2024-12-29] MEDS: IV FLUID CONTINUATION 1,000 ML IV ONE (16:21)
[2024-12-29 16:52] LABS: Glucose,Whole Blood 120 mg/dL (70-110)
[2024-12-29] MEDS: LACTATED RINGERS 1,000 ML BAG IV STA (16:52)
[2024-12-29] MEDS ORDERED: SUCCINYLCHOLINE CHLORIDE 200 MG/10 ML VIAL IV ONE (17:31)
[2024-12-29] MEDS ORDERED: fentaNYL (PF) 50 MCG/ML 2 ML AMP ONE (17:31)
[2024-12-29] MEDS ORDERED: ROCURONIUM 10 MG/ML (5 ML VIAL) IV ONE (17:31)
[2024-12-29] MEDS ORDERED: PROPOFOL 10 MG/ML 20 ML VIAL IV ONE (17:31)
[2024-12-29] MEDS ORDERED: LIDOCAINE 1% INJ 10MG/ML (20 ML MDV) ONE (17:31)
[2024-12-29] MEDS ORDERED: KETOROLAC 15 MG/ML 1 ML VIAL ONE (17:31)
[2024-12-29] MEDS ORDERED: NEOSTIGMINE 1 MG/ML 10 ML VIAL ONE (17:31)
[2024-12-29] MEDS ORDERED: GLYCOPYRROLATE 0.2 MG/ML 2 ML VIAL ONE (17:31)
[2024-12-29] MEDS ORDERED: MIDAZOLAM 2 MG/2 ML VIAL ONE (17:31)
[2024-12-29] MEDS: BUPIVACAINE (PF) 0.25% 30 ML VIAL SQ ONE ×2 (17:52)
[2024-12-29] MEDS ORDERED: traMADol 50 MG TAB PO PRN (18:12)
--- NOTE | 2024-12-29 18:14 | P.OP ---
Date of Procedure: 12/29/24 Procedure(s) Performed: PREOPERATIVE DIAGNOSIS: Acute appendicitis POSTOPERATIVE DIAGNOSIS: Same PROCEDURE: Laparoscopic appendectomy SURGEON: Kristen EBL: 5 cc ANESTHESIA: General COMPLICATIONS: None OPERATIVE PROCEDURE: The patient was brought and placed on the operating table in the supine position. The patient was placed under general anesthesia. The abdomen was prepped and draped in the usual sterile fashion. A small horizontal left upper quadrant incision was made. Entrance into the peritoneal cavity took place using an optical trocar. An additional 5 mm trocar was placed in the epigastric midline and a 12 mm trocar in the left lower quadrant. The patient's appendix and cecum were quite mobile. They were present in the midline. The appendix proximally appeared normal however the tip of the appendix had evidence of erythema, distention, and induration. There was no purulence or gangrenous changes seen. The mesoappendix was divided using LigaSure. The base of the appendix was divided using LigaSure after a PDS Endoloop was applied at the base of the appendix. The appendix was removed using an Endo Catch bag. The area was then irrigated. No further purulence or bleeding was seen. The fascia at the 12 mm site was closed using a Jameson-Beth 0 Vicryl stitch. The skin at all 3 sites was closed using 4-0 Monocryl sutures. Skin glue was then applied. DISPOSITION: Stable to recovery room
[2024-12-29 18:44] LABS: Glucose,Whole Blood 134 mg/dL (70-110)
[2024-12-29] MEDS: METOPROLOL TARTRATE 50 MG TAB PO SCH (19:38)
[2024-12-29] MEDS: HYDROcodone/APAP 5-325MG 1 EACH TAB PO PRN (20:20)
--- NOTE | 2024-12-29 20:30 | PN ---
PROGRESS NOTE CHIEF COMPLAINT: Abdominal pain and possible appendicitis. HISTORY OF PRESENT ILLNESS: This lady is doing fairly well. She has had no chills. She has had no fever. She has not been vomiting. She is being evaluated for surgery later today. PHYSICAL EXAMINATION: CHEST: Demonstrates her usual inspiratory and expiratory wheezing throughout with occasional rhonchi. CARDIAC: Sinus. ABDOMEN: Soft and there are no masses. IMPRESSION: 1. Possible appendicitis. 2. Chronic obstructive pulmonary disease. 3. Reactive airway disease. 4. Type 2 diabetes. PLAN: Proceed for management of a possible appendicitis. MMODL / IJN: [id number] /
[2024-12-29] MEDS: SYMBICORT 160-4.5 MCG INHALER INHALATION SCH (21:01)
--- NOTE | 2024-12-29 21:39 | PN ---
PROGRESS NOTE CHIEF COMPLAINT: Abdominal discomfort and amylase. HISTORY OF PRESENT ILLNESS: This is another admission for this 54-year-old female, who has longstanding history of severe reactive airway disease and COPD. She is also diabetic. She gives a history of having been out somewhere eating and when she came home she just "did not feel well." She did not have any specific abdominal pain. She had no fever or chills. She started to feel even worse and she came into the emergency room. CT suggested that she might have an early appendicitis. She had no symptoms to suggest that, however. She was admitted for further workup and evaluation by Surgery. REVIEW OF SYSTEMS: She denies any chest pain, fever, chills, nausea, vomiting, diarrhea, melena, urinary complaints, etc. PAST MEDICAL HISTORY, FAMILY HISTORY, PERSONAL AND SOCIAL HISTORIES: Reveal that she is on 1. Lasix 20 mg twice a day. 2. Nebulizer treatments with DuoNeb. 3. Isosorbide mononitrate 30 mg once a day. 4. Rosuvastatin 40 mg once a day. 5. Ventolin HFA q.i.d. p.r.n. 6. Metoprolol 50 mg twice a day. 7. Trulicity 0.75 once a week. 8. Breztri 160/9/4.8 two puffs twice a day. 9. Vicodin p.r.n. 10.Xanax 0.25. 11.Aspirin 81 mg. She is allergic to statins, tramadol, theophylline, and cephalosporins. She has a history of cardiac disease with placement of coronary artery stents. She does continue to smoke. PHYSICAL EXAMINATION: VITAL SIGNS: Normal. HEAD, EARS, EYES, NOSE, MOUTH, AND THROAT: Normal. CHEST: Demonstrates inspiratory and expiratory wheezing throughout. CARDIAC: Sounds like sinus rhythm and no murmurs or extra sounds. ABDOMEN: Soft, slightly tender, slightly protuberant. There are no masses or visceromegaly. She is not particularly tender in the right upper quadrant at this time or the lower quadrant at this time. Bowel sounds are present. EXTREMITIES: Normal. NEUROLOGICAL: She is intact. DIAGNOSES: She is admitted to the hospital with diagnoses: 1. Possible appendicitis. 2. Chronic obstructive pulmonary disease. 3. Reactive airway disease. 4. Type 2 diabetes mellitus. RECOMMENDATIONS: Further workup as well as proceeding with her planned abdominal surgery. MMODL / IJN: [id number] /
[2024-12-29] MEDS: ATORVASTATIN 80 MG TAB PO SCH (22:42)
[2024-12-30] MEDS: ACETAMINOPHEN TAB 325 MG TAB PO PRN (04:03)
[2024-12-30] MEDS: metroNIDAZOLE-NS PMX 500 MG in SALINE 1 100ML.BAG IVPB SCH (06:09)
[2024-12-30 07:52] VITALS: RESP 17; TEMP 98.1
[2024-12-30] MEDS: ISOSORBIDE MONONITRATE ER 30 MG TAB.ER.24H PO SCH (09:09)
[2024-12-30] MEDS: ASPIRIN 81 MG PO SCH (09:09)
[2024-12-30] MEDS: FUROSEMIDE 20 MG TAB PO SCH (09:09)
[2024-12-30] MEDS: CLOPIDOGREL 75 MG TAB PO SCH (09:09)
[2024-12-30 09:14] VITALS: BP 101/65; PULSE 68
[2024-12-30] MEDS: TIOTROPIUM 2.5 MCG INHALER INHALATION SCH (10:14)
--- NOTE | 2024-12-30 11:04 | P.DS ---
Providers Date of admission: 12/28/24 18:16 Expected date of discharge: 12/30/24 Attending physician: Aditya Peterson Consults: 12/28/24 18:32 Consult Physician Urgent Consulting Provider: Justin Edmondson Consult Reason/Comments: Medical management Do you want consulting provider notified?: Yes Primary care physician: Justin Edmondson Hospital Course: Discharge diagnosis 1. Acute appendicitis Hospital course This is a 54-year-old female who presented the hospital with right lower quadrant abdominal pain. CT scan had reported fat stranding that could be seen with early appendicitis. She has chronic right upper quadrant discomfort that patient reported related to her gallbladder. Patient did have a repeat CT scan that was reviewed by the surgeon with some mild periappendiceal inflammatory changes. Patient is status post laparoscopic appendectomy. Patient tolerated surgery well. She reports feeling better. She is tolerating diet. Her pain is controlled. She is having flatus. She has been up and ambulating. She is afebrile. She is stable for discharge. Please refer to chart for any further details. Physician Counter Manager note has been reviewed by physician. Signing provider agrees with the documented findings, assessment, and plan of care. Patient Condition at Discharge: Stable Plan - Discharge Summary Discharge Rx Participant: No New Discharge Prescriptions: New HYDROcodone/APAP 5-325MG [[place] 5-325] 1 tab PO Q6HR PRN 3 Days #12 tab PRN Reason: Pain Continue metFORMIN HCL 250 mg PO BID Rosuvastatin Calcium [Crestor] 40 mg PO HS Budesonide/Glycopyr/Formoterol [Breztri Aerosphere Inhaler] 2 puff INHALATION RT-BID Ondansetron [Zofran] 4 mg PO TID PRN PRN Reason: Nausea And Vomiting Isosorbide Mononitrate ER [Imdur] 30 mg PO DAILY Dulaglutide [Trulicity] 0.75 mg SQ WE Metoprolol Tartrate [Lopressor] 50 mg PO BID-W/MEALS Glimepiride 4 mg PO DAILY@1200 Aspirin EC [Ecotrin Low Dose] 81 mg PO DAILY Albuterol Inhaler [Ventolin Hfa Inhaler] 2 puff INHALATION RT-Q4H PRN PRN Reason: Shortness Of Breath Clopidogrel [Plavix] 75 mg PO DAILY 90 Days #90 tablet Furosemide [Lasix] 20 mg PO DAILY Ipratropium-Albuterol Nebulize [Duoneb 0.5 mg-3 mg/3 ml Soln] 3 ml INHALATION RT-QID PRN PRN Reason: Shortness Of Breath Discharge Medication List Albuterol Inhaler [Ventolin Hfa Inhaler] 2 puff INHALATION RT-Q4H PRN 05/07/24 [History] Aspirin EC [Ecotrin Low Dose] 81 mg PO DAILY 05/07/24 [History] Budesonide/Glycopyr/Formoterol [Breztri Aerosphere Inhaler] 2 puff INHALATION RT-BID 05/07/24 [History] Dulaglutide [Trulicity] 0.75 mg SQ WE 05/07/24 [History] Glimepiride 4 mg PO DAILY@1200 05/07/24 [History] Isosorbide Mononitrate ER [Imdur] 30 mg PO DAILY 05/07/24 [History] Ondansetron [Zofran] 4 mg PO TID PRN 05/07/24 [History] Rosuvastatin Calcium [Crestor] 40 mg PO HS 05/07/24 [History] metFORMIN HCL 250 mg PO BID 05/07/24 [History] Clopidogrel [Plavix] 75 mg PO DAILY 90 Days #90 tablet 05/09/24 [Rx] Metoprolol Tartrate [Lopressor] 50 mg PO BID-W/MEALS 08/03/24 [History] Furosemide [Lasix] 20 mg PO DAILY 12/28/24 [History] Ipratropium-Albuterol Nebulize [Duoneb 0.5 mg-3 mg/3 ml Soln] 3 ml INHALATION RT-QID PRN 12/28/24 [History] HYDROcodone/APAP 5-325MG [[place] 5-325] 1 tab PO Q6HR PRN 3 Days #12 tab 12/30/24 [Rx] Follow up Appointment(s)/Referral(s): Justin Edmondson MD [Primary Care Provider] - 1-2 days Aditya Peterson MD [Medical Doctor] - 1 Week Activity/Diet/Wound Care/Special Instructions: No driving while taking [place] No lifting over 10 pounds You may shower. No soaking or tub baths for 2 weeks Very light activity until you are reevaluated at your follow up appointment with your surgeon Discharge Disposition: HOME SELF-CARE
--- NOTE | 2024-12-30 15:14 | PN ---
PROGRESS NOTE DATE OF SERVICE: 12/29/2024 CHIEF COMPLAINT: Abdominal pain and possible appendicitis. HISTORY OF PRESENT ILLNESS: This lady is doing fairly well. She has had no chills. She has had no fever. She has not been vomiting. She is being evaluated for surgery later today. PHYSICAL EXAMINATION: CHEST: Demonstrates her usual inspiratory and expiratory wheezing throughout with occasional rhonchi. CARDIAC: Sinus. ABDOMEN: Soft and there are no masses. IMPRESSION: 1. Possible appendicitis. 2. Chronic obstructive pulmonary disease. 3. Reactive airway disease. 4. Type 2 diabetes. PLAN: Proceed for management of a possible appendicitis. MMODL / IJN: [id number] /
--- NOTE | 2024-12-30 23:41 | PN ---
PROGRESS NOTE DATE OF SERVICE: 12/30/2024 CHIEF COMPLAINT: Abdominal pain. HISTORY OF PRESENT ILLNESS: This lady is doing well after appendectomy. She has had no vomiting, fever, chills, etc. She expects to go home today. PHYSICAL EXAMINATION: CHEST: Demonstrates inspiratory and expiratory wheezing, which is usual for her. ABDOMEN: Bowel sounds are present. IMPRESSION: 1. Status post appendectomy. 2. Chronic obstructive pulmonary disease. 3. Diabetes. PLAN: Home today. MMODL / IJN: [id number] /
== END 2024-12-30 12:30 | disposition home or self-care (01) ==
LOC: EC 13:03 → 1SOBS 18:16
PROVIDERS: ADMIT Surgery; ATTEND Surgery
DX: K35.80 Unspecified acute appendicitis (principal); J44.89 Other specified chronic obstructive pulmonary disease; E11.9 Type 2 diabetes mellitus without complications; I25.10 Atherosclerotic heart disease of native coronary artery without angina pectoris; E87.6 Hypokalemia; N20.0 Calculus of kidney; K57.30 Diverticulosis of large intestine without perforation or abscess without bleeding; F17.210 Nicotine dependence, cigarettes, uncomplicated; Z79.82 Long term (current) use of aspirin; Z79.84 Long term (current) use of oral hypoglycemic drugs; Z79.51 Long term (current) use of inhaled steroids; Z79.85 Long-term (current) use of injectable non-insulin antidiabetic drugs; Z79.02 Long term (current) use of antithrombotics/antiplatelets; Z79.899 Other long term (current) drug therapy; Z88.1 Allergy status to other antibiotic agents; Z88.8 Allergy status to other drugs, medicaments and biological substances; Z88.5 Allergy status to narcotic agent; Z91.041 Radiographic dye allergy status; Z91.012 Allergy to eggs; Z91.011 Allergy to milk products; Z87.442 Personal history of urinary calculi; Z95.5 Presence of coronary angioplasty implant and graft; Z90.710 Acquired absence of both cervix and uterus; Z98.51 Tubal ligation status; Z98.891 History of uterine scar from previous surgery
CPT/HCPCS: 44970; 96366; 96375 ×2; 96376 ×2; 96361; 96365; 99285; 36415; 94640 ×2; 93005; 88304; 80053; 80048; 83690; 85025 ×2; 81001; 87040; 74176; 74177; G0378 ×3; J2250; J0330; J2270; J1200; J2710; J3480; J2405 ×2; J2003; J3010; J1171 ×2; J1956 ×2; J1885; J2704; Q9967; J1836 ×3; J0665; J1596; J2919; J1308

== ENCOUNTER 2025-01-17 22:14 | Observation (INO) | payer OTHER ==
[2025-01-17] MEDS ORDERED: NALOXONE 0.4 MG/ML 1 ML VIAL IV PRN (22:36)
--- NOTE | 2025-01-17 22:46 | ED ---
Chest Pain HPI - General Source: patient Mode of arrival: wheelchair Limitations: no limitations <Trisha Bailey - Last Filed: 01/18/25 06:28> - General Source: patient, RN notes reviewed, old records reviewed Mode of arrival: wheelchair Limitations: no limitations - History of Present Illness MD Complaint: chest pain Pain Location: substernal, right chest, epigastric Severity: moderate Severity scale (1-10): 5 Quality: tightness, sharp Consistency: intermittent Improves With: nothing Worsens With: nothing <Jonathan Mendoza - Last Filed: 01/20/25 15:30> - General Chief Complaint: Chest Pain Stated Complaint: Chest pain Time Seen by Provider: 01/17/25 22:17 - History of Present Illness Initial Comments: 55-year-old female with history of CAD with 2 stents, diabetes, COPD, h ypertension, daily smoker here for chest pain. Patient reported that 3 hours ago while sitting she started to acutely have midsternal chest pressure/aching radiating to the back with associated nausea and vomiting that is nonbloody, shortness of breath and right upper quadrant abdominal pain. She tried to take aspirin but it did not improve her chest pressure. She noted that her chest pressure is better with rest, worse with lying down. Denied fever, chills, recent exposure to sick contacts, recent illness, recent prolonged travel, extremity swelling, diaphoresis, diarrhea, palpitations, focal weakness. (Trisha Bailey) This is a 55-year-old female to the ER with history of CAD coming in for chest pain and chest pressure with nausea mild shortness of breath and right upper quadrant abdominal (Jonathan Mendoza) - Related Data Home Medications Medication Instructions Recorded Confirmed Albuterol Inhaler [Ventolin Hfa 2 puff INHALATION RT-Q4H PRN 05/07/24 01/18/25 Inhaler] Aspirin EC [Ecotrin Low Dose] 81 mg PO DAILY 05/07/24 01/18/25 Budesonide/Glycopyr/Formoterol 2 puff INHALATION RT-BID 05/07/24 01/18/25 [Breztri Aerosphere Inhaler] Dulaglutide [Trulicity] 0.75 mg SQ WE 05/07/24 01/18/25 Glimepiride 4 mg PO DAILY@1200 05/07/24 01/18/25 Isosorbide Mononitrate ER [Imdur] 30 mg PO DAILY 05/07/24 01/18/25 Ondansetron [Zofran] 4 mg PO TID PRN 05/07/24 01/18/25 Rosuvastatin Calcium [Crestor] 40 mg PO HS 05/07/24 01/18/25 metFORMIN HCL 250 mg PO BID 05/07/24 01/18/25 Metoprolol Tartrate [Lopressor] 50 mg PO BID-W/MEALS 08/03/24 01/18/25 Furosemide [Lasix] 20 mg PO DAILY 12/28/24 01/18/25 Ipratropium-Albuterol Nebulize 3 ml INHALATION RT-QID PRN 12/28/24 01/18/25 [Duoneb 0.5 mg-3 mg/3 ml Soln] Previous Rx's Medication Instructions Recorded Clopidogrel [Plavix] 75 mg PO DAILY 90 Days #90 tablet 05/09/24 Allergies Allergy/AdvReac Type Severity Reaction Status Date / Time cephalexin [From Keflex] Allergy Anaphylaxis Verified 01/20/25 09:55 Iodinated Contrast Media Allergy Anaphylaxis Verified 01/20/25 09:55 milk Allergy Nausea & Verified 01/20/25 09:55 Vomiting & Diarrhea egg AdvReac Nausea Verified 01/20/25 09:55 Review of Systems ROS Other: All systems not noted in ROS Statement are negative. <Trisha Bailey - Last Filed: 01/18/25 06:28> ROS Other: All systems not noted in ROS Statement are negative. <Jonathan Mendoza - Last Filed: 01/20/25 15:30> ROS Statement: Those systems with pertinent positive or pertinent negative responses have been documented in the HPI. EKG Findings - EKG Comments: EKG Findings:: Sinus rhythm with a rate of 84 bpm, normal axis, VA interval 170 MS, QRS interval 106 MS, no ST-T changes noted, good R wave progression <Trisha Bailey - Last Filed: 01/18/25 06:28> - EKG Results: EKG: interpreted by ERMD <Jonathan Mendoza - Last Filed: 01/20/25 15:30> Past Medical History Past Medical History: Asthma, Coronary Artery Disease (CAD), COPD, Diabetes Mellitus, Hypertension, Myocardial Infarction ([place]) Additional Past Medical History / Comment(s): kidney stones, Last Myocardial Infarction Date:: 2016 History of Any Multi-Drug Resistant Organisms: None Reported Past Surgical History: Ear Surgery, Heart Catheterization, Heart Catheterization With Stent, Hysterectomy Additional Past Surgical History / Comment(s): 2 cardiac stents, cataract and foot surgery Past Anesthesia/Blood Transfusion Reactions: Previous Problems w/ Anesthesia Date of Last Stent Placement:: 06/10/2017 Past Psychological History: No Psychological Hx Reported Smoking Status: Current every day smoker Past Alcohol Use History: None Reported Past Drug Use History: Marijuana - Past Family History Father Additional Family Medical History / Comment(s): MVA Mother Family Medical History: Cancer Additional Family Medical History / Comment(s): Leukemia <Trisha Bailey - Last Filed: 01/18/25 06:28> General Exam Limitations: no limitations <Trisha Bailey - Last Filed: 01/18/25 06:28> General appearance: alert, in no apparent distress Head exam: Present: atraumatic, normocephalic, normal inspection Eye exam: Present: normal appearance, PERRL, EOMI. Absent: scleral icterus, conjunctival injection, periorbital swelling ENT exam: Present: normal exam, mucous membranes moist Neck exam: Present: normal inspection. Absent: tenderness, meningismus, lymphadenopathy Respiratory exam: Present: normal lung sounds bilaterally. Absent: respiratory distress, wheezes, rales, rhonchi, stridor Cardiovascular Exam: Present: regular rate, normal rhythm, normal heart sounds. Absent: systolic murmur, diastolic murmur, rubs, gallop, clicks GI/Abdominal exam: Present: soft, normal bowel sounds. Absent: distended, tenderness, guarding, rebound, rigid Extremities exam: Present: normal inspection, full ROM, normal capillary refill. Absent: tenderness, pedal edema, joint swelling, calf tenderness Back exam: Present: normal inspection Neurological exam: Present: alert, oriented X3, CN II-XII intact Psychiatric exam: Present: normal affect, normal mood Skin exam: Present: warm, dry, intact, normal color. Absent: rash <Jonathan Mendoza - Last Filed: 01/20/25 15:30> - General Exam Comments Initial Comments: Physical examination: Vital signs reviewed General: non toxic, no distress, appears at stated age Head: atraumatic, normoceph, alic, symmetric Mouth: no lip lesion, mucus membranes moist Cardiovascular: S1S2 reg, no murmur Lungs: Diffuse expiratory wheezing no rhonchi, no rales, no accessory muscle use Abdominal: soft, nondistended, right upper quadrant tenderness to light palpation, positive Avery sign no guarding Ext: muscle strength 5 out of 5 in all 4 extremities grossly, no gross muscle atrophy, no contractures, positive dorsalis pedis pulse bilateral, no edema Neuro: no gross focal neuro deficits Psych: Alert and oriented x3, appropriate affect and mood, (Trisha Bailey) Course <Jonathan Mendoza - Last Filed: 01/20/25 15:30> Vital Signs 01/17/25 01/17/25 01/18/25 22:15 23:32 01:28 Temperature 98.0 F Pulse Rate 90 78 73 Pulse Rate [ Pulse Oximetery ] Respiratory 19 20 20 Rate Blood Pressure 168/83 150/90 102/61 O2 Sat by Pulse 94 L 97 94 L Oximetry 01/18/25 01/18/25 02:00 02:01 Temperature 98 F Pulse Rate 75 Pulse Rate [ 75 Pulse Oximetery ] Respiratory 17 19 Rate Blood Pressure 118/66 O2 Sat by Pulse 96 Oximetry - Reevaluation(s) Reevaluation #1: Medical records reviewed (Jonathan Mendoza) Reevaluation #2: Patient informed of results and questions answered (Jonathan Mendoza) Chest Pain MDM <Trisha Bailey - Last Filed: 01/18/25 06:28> <Jonathan Mendoza - Last Filed: 01/20/25 15:30> - MDM Was pt. sent in by a medical professional or institution (, PA, EHR TRAINER, urgent care, hospital, or usp...) When possible be specific @ -No Did you speak to anyone other than the patient for history (EMS, parent, family, police, friend...)? What history was obtained from this source @ -Partner at bedside Did you review nursing and triage notes (agree or disagree)? Why? @ -I reviewed and agree with nursing and triage notes Were old charts reviewed (outside hosp., previous admission, EMS record, old EKG, old radiological studies, urgent care reports/EKG's, usp records)? Report findings @ -Old charts were reviewed Differential Diagnosis? @ -Differential Chest Pain: Stable Angina, Unstable Angina, STEMI, NSTEMI Aortic Dissection, Pneumothorax, Musculoskeletal, Esophageal Spasm GERD, Cholecystitis, Pancreatitis, Zoster, this is not meant to be an all-inclusive list. EKG interpreted by me (3pts min.). @ -As above X-rays interpreted by me (1pt min.). @ -No acute cardiopulmonary process occurring CT interpreted by me (1pt min.). @ -None done U/S interpreted by me (1pt. min.). @ -Abdominal ultrasound shows no stones, fluid accumulation in the gallbladder noted. Gallbladder wall does not seem thickened. What testing was considered but not performed or refused? (CT, X-rays, U/S, labs)? Why? @ -None What meds were considered but not given or refused? Why? @ -None Did you discuss the management of the patient with other professionals (professionals i.e. , PA, EHR TRAINER, lab, RT, psych nurse, social sciences instructor, stave mill hand, teacher, boat officer, machine adjuster leader case trim)? Give summary @ -Dr. Mendoza, supervising physician Was smoking cessation discussed for >3mins.? @ -[No] Was critical care preformed (if so, how long)? @ -[No] Were there social determinants of health that impacted care today? How? (Homelessness, low income, unemployed, alcoholism, drug addiction, tra nsportation, low edu. Level, literacy, decrease access to med. care, senior care, rehab)? @ -No Was there de-escalation of care discussed even if they declined (Discuss DNR or withdrawal of care, Hospice)? DNR status @ -No What co-morbidities impacted this encounter? (DM, HTN, Smoking, COPD, CAD, Cancer, CVA, ARF, Chemo, Hep., AIDS, mental health diagnosis, sleep apnea, morbid obesity)? @ -Diabetes, hypertension, history of smoking, COPD, CAD Was patient admitted / discharged? Hospital course, mention meds given and route, prescriptions, significant lab abnormalities, going to OR and other pertinent info. @ -Observation. Patient has persistent chest pain and right upper quadrant abdominal pain with positive Avery sign. Given IV fluid bolus, IV Zofran, IV Reglan, and morphine IV once. Spoke to Dr. Edmondson, who accepted this patient for admission. Undiagnosed new problem with uncertain prognosis? @ -No Drug Therapy requiring intensive monitoring for toxicity (Heparin, Nitro, Insulin, Cardizem)? @ -No Were any procedures done? @ -No Diagnosis/symptom? @ -[default] Acute, or Chronic, or Acute on Chronic? @ -Acute Uncomplicated (without systemic symptoms) or Complicated (systemic symptoms)? @ -Complicated Side effects of treatment? @ -No Exacerbation, Progression, or Severe Exacerbation? @ -No Poses a threat to life or bodily function? How? (Chest pain, [place], OR, pneumonia, PE, COPD, DKA, ARF, appy, cholecystitis, CVA, Diverticulitis, Homicidal, Suicidal, threat to staff... and all critical care pts) @ -Yes. ACS, possible cholecystitis (Trisha Bailey) I personally saw the patient and performed the critical portion of the service. I discussed the patient care with the Dr Bailey. I directed management, care planning and final disposition of the patient. This includes, but not limited to, review of all lab work, radiological studies, EKG's, consultations, vital signs, and nursing notes. EKG interpreted by me (3pts min.) @ [as above] X-Rays interpreted by me (1 pt min.) @ [yes negative for acute disease] CT interpreted by me ( 1pt min.) @ [none] U/S interpreted by me (1 pt min.) @ [none] Critical care time of [0] minutes excluding separately billable procedures was spent in conjunction with critical care activities provided by the Resident and Attending simultaneously. I was present during [no procedures] for all critical portions of the procedure and as immediately available to furnish service during the entire procedure. (Jonathan Mendoza) Disposition Time of Disposition: 23:50 <Trisha Bailey - Last Filed: 01/18/25 06:28> <Jonathan Mendoza - Last Filed: 01/20/25 15:30> Clinical Impression: Chest pain, Acute abdominal pain Disposition: ADMITTED IP TO THIS HOSP
[2025-01-17] MEDS: SODIUM CHLORIDE 0.9% 1,000 ML IV STA (22:48)
[2025-01-17] MEDS: ONDANSETRON 4 MG/2 ML VIAL IVP PRN (22:49)
[2025-01-17] MEDS: NITROGLYCERIN SL TABS 0.4 MG TAB SUBLINGUAL STA (22:50)
[2025-01-17 23:03] LABS: Basophils # (A) 0.01 10*3/uL (0.00-0.10); Basophils % (A) 0.1 %; Eosinophils # (A) 0.09 10*3/uL (0.04-0.35); Eosinophils % (A) 1.2 %; HCT 37.5 % (37.2-46.3); HGB 12.1 g/dL (12.0-15.0); Lymphocytes # (A) 2.43 10*3/uL (0.90-5.00); Lymphocytes % (A) 31.7 %; MCH 28.9 pg (27.0-32.0); MCHC 32.3 g/dL (32.0-37.0); MCV 89.7 fL (80.0-97.0); Monocytes # (A) 0.47 10*3/uL (0.20-1.00); Monocytes % (A) 6.1 %; Neutrophils # (A) 4.62 10*3/uL (1.80-7.70); Neutrophils % (A) 60.4 %; Platelet Count 178 10*3/uL (140-440); RBC 4.18 10*6/uL (4.10-5.20); RDW 14.4 % (11.5-14.5); WBC 7.66 10*3/uL (4.50-10.00)
[2025-01-17 23:24] LABS: ALT 9 U/L (4-34); AST 18 U/L (14-36); African American GFR (CKD) >90 (>60 ml/min/1.73 sqM); Albumin 3.6 g/dL (3.5-5.0); Alkaline Phosphatase 117 U/L (38-126); Amylase 45 U/L (30-110); Anion Gap 6 mmol/L; Blood Urea Nitrogen 10 mg/dL (7-17); Calcium 9.7 mg/dL (8.4-10.2); Carbon Dioxide 35 mmol/L (22-30); Chloride 102 mmol/L (98-107); Glucose 54 mg/dL (74-99); Lipase 76 U/L (23-300); Magnesium 1.7 mg/dL (1.6-2.3); Non-African American GFR(CKD) >90 (>60 ml/min/1.73 sqM); Potassium 3.5 mmol/L (3.5-5.1); Sodium 143 mmol/L (137-145); Total Protein 5.9 g/dL (6.3-8.2)
[2025-01-17 23:37] LABS: INR 0.9 (<1.2); Partial Thromboplastin Time 23.4 sec (22.0-30.0); Prothrombin Time 10.1 sec (10.0-12.5)
[2025-01-17] MEDS: METOCLOPRAMIDE 5 MG/ML 2 ML VIAL IVP STA (23:45)
[2025-01-17] MEDS: DEXTROSE 50% SYRINGE 50 ML IVP STA (23:47)
[2025-01-17] MEDS: MORPHINE SULFATE 4 MG/ML SYRINGE IV PRN (23:50)
[2025-01-18 01:04] LABS: Glucose,Whole Blood 132 mg/dL (70-110)
--- NOTE | 2025-01-18 01:04 | XR ---
EXAM: XR Chest, 2 Views CLINICAL HISTORY: ITS.REASON XR Reason: Chest Pain TECHNIQUE: Frontal and lateral views of the chest. COMPARISON: 08/26/2024 FINDINGS: Lungs: Similar chronic interstitial changes, greatest at the lung bases. No consolidation. Pleural space: No significant pleural effusion. No pneumothorax. Heart: No cardiomegaly or pulmonary vascular congestion. Bones/joints: No acute fracture. No dislocation. IMPRESSION: Similar chronic interstitial changes, greatest at the lung bases. No consolidation.
[2025-01-18] MEDS ORDERED: DEXTROSE 50% SYRINGE 50 ML IVP PRN (01:09)
--- NOTE | 2025-01-18 01:33 | US ---
EXAM: US Abdomen Limited, Right Upper Quadrant CLINICAL HISTORY: ITS.REASON US Reason: RUQ pain TECHNIQUE: Real-time ultrasound of the right upper quadrant with image documentation. COMPARISON: CT abdomen and pelvis 12/29/2024 FINDINGS: Liver: Hepatomegaly measuring 20 cm with echogenic parenchyma suggesting steatosis. No intrahepatic bile duct dilation. Gallbladder: Distended gallbladder with positive Avery's sign. However, no gallbladder wall thickening or cholelithiasis to suggest acute cholecystitis. Common bile duct: No biliary dilatation. CBD 4.4 mm. Pancreas: Pancreas suboptimally characterize. Right kidney: Right kidney measures 10.5 cm. No hydronephrosis. IMPRESSION: 1. Hepatomegaly measuring 20 cm with echogenic parenchyma suggesting steatosis. 2. Distended gallbladder with positive Avery's sign. However, no gallbladder wall thickening or cholelithiasis to suggest acute cholecystitis.
[2025-01-18 02:59] LABS: ALT 8 U/L (4-34); AST 17 U/L (14-36); African American GFR (CKD) >90 (>60 ml/min/1.73 sqM); Albumin 2.8 g/dL (3.5-5.0); Alkaline Phosphatase 96 U/L (38-126); Anion Gap 4 mmol/L; Blood Urea Nitrogen 10 mg/dL (7-17); Calcium 9.0 mg/dL (8.4-10.2); Carbon Dioxide 35 mmol/L (22-30); Chloride 101 mmol/L (98-107); Glucose 99 mg/dL (74-99); Non-African American GFR(CKD) >90 (>60 ml/min/1.73 sqM); Potassium 3.5 mmol/L (3.5-5.1); Sodium 140 mmol/L (137-145); Total Protein 5.0 g/dL (6.3-8.2)
[2025-01-18 06:06] LABS: Glucose,Whole Blood 108 mg/dL (70-110)
[2025-01-18] MEDS: INSULIN LISPRO (HumaLOG) 100 UNIT/ML 10 mL VL SQ SCH (06:19)
[2025-01-18] MEDS: ACETAMINOPHEN TAB 325 MG TAB PO PRN (10:31)
[2025-01-18] MEDS: ASPIRIN 81 MG PO SCH (10:32)
[2025-01-18 11:26] VITALS: BMI 32.8
[2025-01-18 12:11] LABS: Glucose,Whole Blood 51 mg/dL (70-110)
[2025-01-18] MEDS: DEXTROSE 50% SYRINGE 50 ML IVP PRN (12:16)
[2025-01-18 12:36] LABS: Glucose,Whole Blood 120 mg/dL (70-110)
[2025-01-18] MEDS ORDERED: IPRATROPIUM-ALBUTEROL 3 ML NEB INHALATION PRN (13:05)
[2025-01-18] MEDS: DEXTROSE 5%-0.45% NACL 1,000 ML IV SCH (13:15)
--- NOTE | 2025-01-18 15:05 | P.GSCN ---
History of Present Illness Consult date: 01/18/25 History of present illness: CHIEF COMPLAINT: Chest pain HISTORY OF PRESENT ILLNESS: This is a 55-year-old female who presented to the hospital with complaints of chest pain and epigastric pain that radiated to the back with right upper quadrant abdominal pain that started yesterday. She did have episode of vomiting yesterday. She thought her pain was related to gas pains. She does report having regular bowel movements. She had a recent appendectomy on December 29, 2024. And at that time she had presented with right sided abdominal pain. She does report that the pain has improved in the right lower quadrant since the appendectomy. Patient reports that she has been having issues with her gallbladder for years. She is on Plavix for her cardiac stents. Last dose of Plavix was yesterday morning. She did have a gallbladder ultrasound completed that had reported a distended gallbladder with a positive Avery sign and no gallstones. PAST MEDICAL HISTORY: Asthma, Coronary Artery Disease (CAD), COPD, Diabetes Mellitus, Hypertension, Myocardial Infarction ([place]), kidney stones PAST SURGICAL HISTORY: Ear Surgery, Heart Catheterization, Heart Catheterization With Stent, Hysterectomy MEDICATIONS: See below ALLERGIES: See below SOCIAL HISTORY: No illicit drug use. REVIEW OF SYSTEMS: CONSTITUTIONAL: Denies fever or chills. HEENT: Denies blurred vision, vision changes, or eye pain. Denies hemoptysis CARDIOVASCULAR: Denies chest pain or pressure. RESPIRATORY: No shortness of breath. GASTROINTESTINAL: See HPI for pertinent findings HEMATOLOGIC: Denies bleeding disorders. GENITOURINARY: Denies any blood in urine or increased urinary frequency. SKIN: Denies pruitis. Denies rash. PHYSICAL EXAM: VITAL SIGNS: Reviewed GENERAL: Well-developed in no acute distress. HEENT: No sclera icterus. Extraocular movements grossly intact. Moist buccal mucosa. Head is atraumatic, normocephalic. No nasal drainage. ABDOMEN: Soft. Nondistended. Tenderness palpation right upper quadrant. Surgical incisions from appendectomy are healed. No evidence of drainage or erythema. NEUROLOGIC: Alert and oriented. Cranial nerves II through XII grossly intact. LABORATORY DATA: WBC 7.6 Hgb 12.1 platelets 178 Sodium 140 potassium 3.5 creatinine 0.56 LFTs normal Troponins negative x 3 lipase 76 IMAGING: Chest x-ray similar chronic interstitial changes. No consolidation. Abdominal ultrasound reports hepatomegaly measuring 20 cm with echogenic pa renchyma suggesting steatosis. Distended gallbladder with positive Avery sign. No gallbladder wall thickening or cholelithiasis to suggest acute cholecystitis ASSESSMENT: 1. Right upper quadrant abdominal pain with gallbladder ultrasound reporting a distended gallbladder and a positive Avery sign with no gallstones. PLAN: - HIDA scan ordered for further evaluation of gallbladder - Okay for clear liquid diet today - Hold Plavix for possible surgical intervention Physician Commercial Lines Underwriter note has been reviewed by physician. Signing provider agrees with the documented findings, assessment, and plan of care. Past Medical History Past Medical History: Asthma, Coronary Artery Disease (CAD), COPD, Diabetes Mellitus, Hypertension, Myocardial Infarction ([place]) Additional Past Medical History / Comment(s): kidney stones, Last Myocardial Infarction Date:: 2016 History of Any Multi-Drug Resistant Organisms: None Reported Past Surgical History: Ear Surgery, Heart Catheterization, Heart Catheterization With Stent, Hysterectomy Additional Past Surgical History / Comment(s): 2 cardiac stents, cataract and foot surgery Past Anesthesia/Blood Transfusion Reactions: Previous Problems w/ Anesthesia Additional Past Anesthesia/Blood Transfusion Reaction / Comm: Wakes up early Date of Last Stent Placement:: 06/10/2017 Past Psychological History: No Psychological Hx Reported Smoking Status: Current every day smoker Past Alcohol Use History: None Reported Past Drug Use History: Marijuana - Past Family History Father Additional Family Medical History / Comment(s): MVA Mother Family Medical History: Cancer Additional Family Medical History / Comment(s): Leukemia Medications and Allergies Home Medications Medication Instructions Recorded Confirmed Type Albuterol Inhaler [Ventolin Hfa 2 puff INHALATION RT-Q4H PRN 05/07/24 01/18/25 History Inhaler] Aspirin EC [Ecotrin Low Dose] 81 mg PO DAILY 05/07/24 01/18/25 History Budesonide/Glycopyr/Formoterol 2 puff INHALATION RT-BID 05/07/24 01/18/25 History [Breztri Aerosphere Inhaler] Dulaglutide [Trulicity] 0.75 mg SQ WE 05/07/24 01/18/25 History Glimepiride 4 mg PO DAILY@1200 05/07/24 01/18/25 History Isosorbide Mononitrate ER [Imdur] 30 mg PO DAILY 05/07/24 01/18/25 History Ondansetron [Zofran] 4 mg PO TID PRN 05/07/24 01/18/25 History Rosuvastatin Calcium [Crestor] 40 mg PO HS 05/07/24 01/18/25 History metFORMIN HCL 250 mg PO BID 05/07/24 01/18/25 History Clopidogrel [Plavix] 75 mg PO DAILY 90 Days #90 tablet 05/09/24 01/18/25 Rx Metoprolol Tartrate [Lopressor] 50 mg PO BID-W/MEALS 08/03/24 01/18/25 History Furosemide [Lasix] 20 mg PO DAILY 12/28/24 01/18/25 History Ipratropium-Albuterol Nebulize 3 ml INHALATION RT-QID PRN 12/28/24 01/18/25 History [Duoneb 0.5 mg-3 mg/3 ml Soln] Allergies Allergy/AdvReac Type Severity Reaction Status Date / Time cephalexin [From Keflex] Allergy Anaphylaxis Verified 01/18/25 07:59 Iodinated Contrast Media Allergy Anaphylaxis Verified 01/18/25 07:59 milk Allergy Nausea & Verified 01/18/25 07:59 Vomiting & Diarrhea egg AdvReac Nausea Verified 01/18/25 07:59 Surgical - Exam Vital Signs Temp Pulse Resp BP Pulse Ox 98.0 F 90 19 168/83 94 L 01/17/25 22:15 01/17/25 22:15 01/17/25 22:15 01/17/25 22:15 01/17/25 22:15 Results - Labs 01/17/25 22:45 01/18/25 02:09 Abnormal Lab Results - Last 24 Hours (Table) 01/17/25 01/18/25 01/18/25 Range/Units 22:45 01:02 02:09 Carbon Dioxide 35 H 35 H (22-30) mmol/L Glucose 54 L (74-99) mg/dL POC Glucose (mg/dL) 132 H (70-110) mg/dL Total Protein 5.9 L 5.0 L (6.3-8.2) g/dL Albumin 2.8 L (3.5-5.0) g/dL 01/18/25 01/18/25 Range/Units 12:10 12:35 Carbon Dioxide (22-30) mmol/L Glucose (74-99) mg/dL POC Glucose (mg/dL) 51 L 120 H (70-110) mg/dL Total Protein (6.3-8.2) g/dL Albumin (3.5-5.0) g/dL Diabetes panel 01/17/25 01/18/25 Range/Units 22:45 02:09 Sodium 143 140 (137-145) mmol/L Potassium 3.5 3.5 (3.5-5.1) mmol/L Chloride 102 101 (98-107) mmol/L Carbon Dioxide 35 H 35 H (22-30) mmol/L BUN 10 10 (7-17) mg/dL Creatinine 0.61 0.56 (0.52-1.04) mg/dL Glucose 54 L 99 (74-99) mg/dL Calcium 9.7 9.0 (8.4-10.2) mg/dL AST 18 17 (14-36) U/L ALT 9 8 (4-34) U/L Alkaline Phosphatase 117 96 (38-126) U/L Total Protein 5.9 L 5.0 L (6.3-8.2) g/dL Albumin 3.6 2.8 L (3.5-5.0) g/dL Calcium panel 01/17/25 01/18/25 Range/Units 22:45 02:09 Calcium 9.7 9.0 (8.4-10.2) mg/dL Albumin 3.6 2.8 L (3.5-5.0) g/dL Pituitary panel 01/17/25 01/18/25 Range/Units 22:45 02:09 Sodium 143 140 (137-145) mmol/L Potassium 3.5 3.5 (3.5-5.1) mmol/L Chloride 102 101 (98-107) mmol/L Carbon Dioxide 35 H 35 H (22-30) mmol/L BUN 10 10 (7-17) mg/dL Creatinine 0.61 0.56 (0.52-1.04) mg/dL Glucose 54 L 99 (74-99) mg/dL Calcium 9.7 9.0 (8.4-10.2) mg/dL Adrenal panel 01/17/25 01/18/25 Range/Units 22:45 02:09 Sodium 143 140 (137-145) mmol/L Potassium 3.5 3.5 (3.5-5.1) mmol/L Chloride 102 101 (98-107) mmol/L Carbon Dioxide 35 H 35 H (22-30) mmol/L BUN 10 10 (7-17) mg/dL Creatinine 0.61 0.56 (0.52-1.04) mg/dL Glucose 54 L 99 (74-99) mg/dL Calcium 9.7 9.0 (8.4-10.2) mg/dL Total Bilirubin 0.4 0.2 (0.2-1.3) mg/dL AST 18 17 (14-36) U/L ALT 9 8 (4-34) U/L Alkaline Phosphatase 117 96 (38-126) U/L Total Protein 5.9 L 5.0 L (6.3-8.2) g/dL Albumin 3.6 2.8 L (3.5-5.0) g/dL
[2025-01-18 17:12] LABS: Glucose,Whole Blood 119 mg/dL (70-110)
[2025-01-18 20:25] LABS: Glucose,Whole Blood 224 mg/dL (70-110)
[2025-01-19] MEDS: ATORVASTATIN 80 MG TAB PO SCH (05:42)
[2025-01-19 06:11] LABS: Glucose,Whole Blood 111 mg/dL (70-110)
--- NOTE | 2025-01-19 09:39 | NM ---
EXAMINATION TYPE: NM hepatobiliary w CCK DATE OF EXAM: 01/19/2025 COMPARISON: NONE INDICATION: Pain TECHNIQUE: After the intravenous administration of 5.08 mCi Tc 99m Mebrofenin hepatobiliary scintigra phy is performed. Images were obtained immediately post injection. FINDINGS: There is prompt uptake and excretion of radiotracer by the liver. Extrahepatic ducts are identified at 2 minutes. The gallbladder is visualized within 24 minutes. Small bowel activity is noted within 4 minutes. At one hour CCK was administered, patient was injected with 1.43 mcg of Kinevac, and gallbladder ejec tion fraction is calculated at 58 %, which is in the normal range.. (Normal >35% and <80%.). IMPRESSION: 1. Normal hepatobiliary scan. [facility], Workstation: [facility], 01/19/2025 9:37 AM
--- NOTE | 2025-01-19 11:07 | P.PN ---
Subjective Progress Note Date: 01/19/25 SURGICAL PROGRESS NOTE CHIEF COMPLAINT: Abdominal pain HISTORY OF PRESENT ILLNESS: Patient continues to complain of pain in the right upper quadrant. HIDA scan today was reported as normal EF of 58%. Her gallbladder ultrasound had reported distended gallbladder positive Avery sign. She does report feeling hungry. Afebrile. PHYSICAL EXAM: VITAL SIGNS: Reviewed. GENERAL: Well-developed in no acute distress. HEENT: No sclera icterus. Extraocular movements grossly intact. Moist buccal mucosa. Head is atraumatic, normocephalic. ABDOMEN: Soft. Nondistended. Tenderness palpation right upper quadrant NEUROLOGIC: Alert and oriented. Cranial nerves II through XII grossly intact. ASSESSMENT: 1. Chronic cholecystitis with right upper quadrant abdominal pain and gallbladder ultrasound reporting distended gallbladder and positive Avery sign PLAN: - Plan for laparoscopic cholecystectomy tomorrow with Dr. Milian - N.p.oJf after midnight - Clear liquid diet today Physician Metal Cut Off Saw Tender note has been reviewed by physician. Signing provider agrees with the documented findings, assessment, and plan of care. Objective - Vital Signs Vital signs: Vital Signs Temp 98.4 F 01/19/25 01:37 Pulse 91 01/19/25 05:52 Resp 16 01/19/25 01:37 BP 109/68 01/19/25 05:52 Pulse Ox 90 L 01/19/25 05:52 FiO2 Intake & Output 01/18/25 01/19/25 01/19/25 18:59 06:59 18:59 Weight 71.214 kg Other: Voiding Method Toilet # Voids 3 0 - Labs CBC & Chem 7: 01/17/25 22:45 01/18/25 02:09 Labs: Abnormal Lab Results - Last 24 Hours (Table) 01/18/25 01/18/25 01/18/25 Range/Units 12:10 12:35 17:10 POC Glucose (mg/dL) 51 L 120 H 119 H (70-110) mg/dL 01/18/25 01/19/25 Range/Units 20:22 06:08 POC Glucose (mg/dL) 224 H 111 H (70-110) mg/dL
[2025-01-19 12:35] LABS: Glucose,Whole Blood 90 mg/dL (70-110)
[2025-01-19 17:17] LABS: Glucose,Whole Blood 183 mg/dL (70-110)
[2025-01-19 20:00] LABS: Glucose,Whole Blood 300 mg/dL (70-110)
[2025-01-20 05:24] LABS: Basophils # (A) 0.01 10*3/uL (0.00-0.10); Basophils % (A) 0.2 %; Eosinophils # (A) 0.11 10*3/uL (0.04-0.35); Eosinophils % (A) 1.8 %; HCT 36.6 % (37.2-46.3); HGB 11.5 g/dL (12.0-15.0); Lymphocytes # (A) 1.37 10*3/uL (0.90-5.00); Lymphocytes % (A) 22.3 %; MCH 28.6 pg (27.0-32.0); MCHC 31.4 g/dL (32.0-37.0); MCV 91.0 fL (80.0-97.0); Monocytes # (A) 0.35 10*3/uL (0.20-1.00); Monocytes % (A) 5.7 %; Neutrophils # (A) 4.29 10*3/uL (1.80-7.70); Neutrophils % (A) 69.7 %; Platelet Count 174 10*3/uL (140-440); RBC 4.02 10*6/uL (4.10-5.20); RDW 14.0 % (11.5-14.5); WBC 6.15 10*3/uL (4.50-10.00)
[2025-01-20 05:48] LABS: African American GFR (CKD) >90 (>60 ml/min/1.73 sqM); Anion Gap 5 mmol/L; Blood Urea Nitrogen <2 mg/dL (7-17); Calcium 8.6 mg/dL (8.4-10.2); Carbon Dioxide 32 mmol/L (22-30); Chloride 103 mmol/L (98-107); Glucose 112 mg/dL (74-99); Non-African American GFR(CKD) >90 (>60 ml/min/1.73 sqM); Potassium 3.6 mmol/L (3.5-5.1); Sodium 140 mmol/L (137-145)
[2025-01-20 06:19] LABS: Glucose,Whole Blood 133 mg/dL (70-110)
[2025-01-20] MEDS: IV FLUID CONTINUATION 1,000 ML IV ONE ×3 (09:24→12:03)
[2025-01-20] MEDS: LACTATED RINGERS 1,000 ML BAG IV STA (09:50)
[2025-01-20 09:59] LABS: Glucose,Whole Blood 134 mg/dL (70-110)
[2025-01-20] MEDS: HEPARIN SODIUM,PORCINE 5,000 UNIT/ML 1 ML VIAL SQ STA (10:07)
[2025-01-20] MEDS: LIDOCAINE 1%-EPI 1:100,000 20 ML VIAL SQ ONE ×2 (10:24→10:48)
--- NOTE | 2025-01-20 11:11 | P.OP ---
Date of Procedure: 01/20/25 Preoperative Diagnosis: Cholecystitis Postoperative Diagnosis: Cholecystitis Procedure(s) Performed: Laparoscopic cholecystectomy Anesthesia: HENRRY Surgeon: Celso Milian Estimated Blood Loss (ml): 5 Pathology: other (Bladder) Condition: stable Disposition: PACU Description of Procedure: The patient's placed on the operative table in the supine position. The patient received general endotracheal anesthesia. His abdomen was prepped with sterile fashion. An infraumbilical skin incision was made. The Veress needles positioned into the peritoneal cavity. Position of the Veress needle was confirmed with a positive drop test. The abdomen was then insufflated. After adequate insufflation a 5 mm trochars placed. Cavity. Next the laparoscope placed. Cavity. A 8 mm robotic trocar was placed in the left mid abdomen. A a 8 mm robotic trochars placed in the right lateral position and then the right mid abdomen position. The patient was then placed in reverse Trendelenburg. Patient with was docked to the robot. There were adhesions to the dome of the gallbladder. These were lysed using the hook cautery. The gallbladder fundus was then grasped with a pro-grasp grasper. And then the gallbladder was retracted cephalad. There were adhesions along the body of the gallbladder. These were lysed with sharp dissection. The fundus of the gallbladder was then grasped in the lateral traction was placed in the fundus. And then using blunt and sharp dissection the cystic duct was identified. Using firing applied the cystic duct was identified. A critical view of safety was achieved. The cystic duct was seen entering the common bile duct the common hepatic duct was seen. The cystic duct had been completely dissected and then the cystic duct was clipped and divided. The cystic artery was then identified and then clipped and divided. The gallbladder was then removed from liver bed using left cautery. The gallbladder was placed in a 5 mm Endo Catch bag. The liver bed was hemostasis. There is no bleeding seen. The abdomen was irrigated. No bleeding was seen. The patient was then undocked from the robot. The gallbladder was extracted through the umbilical port site. The umbilical port site was then closed with 0 Ethibond suture. The trochars withdrawn. Skin was closed interrupted 3-0 Monocryl suture. Dermabond dressing applied. Patient top she will was sent to recovery room in stable condition.
[2025-01-20 12:08] LABS: Glucose,Whole Blood 120 mg/dL (70-110)
[2025-01-20 12:30] LABS: Glucose,Whole Blood 117 mg/dL (70-110)
[2025-01-20] MEDS: HYDROcodone/APAP 7.5-325MG 1 EACH TAB PO PRN (14:11)
[2025-01-20 17:29] LABS: Glucose,Whole Blood 130 mg/dL (70-110)
[2025-01-20 20:34] LABS: Glucose,Whole Blood 147 mg/dL (70-110)
[2025-01-21 06:17] LABS: Glucose,Whole Blood 111 mg/dL (70-110)
[2025-01-21 08:14] VITALS: BP 114/70; PULSE 92; TEMP 98.3
[2025-01-21] MEDS: HYDROmorphone 1 MG/ML 1 ML SYRINGE IVP PRN (08:14)
[2025-01-21] MEDS: ENOXAPARIN 40 MG/0.4 ML SYRINGE SQ SCH (08:21)
[2025-01-21 09:05] VITALS: RESP 17
[2025-01-21] MEDS: SIMETHICONE 40 MG/0.6 ML DROPS 2,000 MG/30 ML BOTTLE PO SCH (09:12)
[2025-01-21] MEDS: KETOROLAC 15 MG/ML 1 ML VIAL IVP SCH (09:13)
[2025-01-21 12:15] LABS: Glucose,Whole Blood 123 mg/dL (70-110)
--- NOTE | 2025-01-21 13:11 | P.PN ---
Subjective Progress Note Date: 01/21/25 SURGICAL PROGRESS NOTE CHIEF COMPLAINT: Abdominal pain HISTORY OF PRESENT ILLNESS: Patient is postop day #1 status post laparoscopic cholecystectomy. Patient complaining of abdominal pain and gas pain today. She did receive IV Dilaudid and Mylicon gas drops. She also was nauseous. Patient reports that the Dilaudid made her more nauseous. No vomiting. She is now having flatus. She feels ready for discharge. She did tolerate the [place] yesterday. Afebrile. She has been up ambulating. She denies any difficulty urinating. Patient seen and examined with Dr. Milian PHYSICAL EXAM: VITAL SIGNS: Reviewed. GENERAL: Well-developed in no acute distress. HEENT: No sclera icterus. Extraocular movements grossly intact. Moist buccal mucosa. Head is atraumatic, normocephalic. ABDOMEN: Soft. Nondistended. Mild diffuse tenderness. Umbilical incision with ecchymosis noted. Soft to palpation. NEUROLOGIC: Alert and oriented. Cranial nerves II through XII grossly intact. ASSESSMENT: 1. Chronic cholecystitis status post laparoscopic cholecystectomy PLAN: -Patient can be discharged from surgical standpoint -Continue regular diet -[place] for pain management at home Physician Validation Leader note has been reviewed by physician. Signing provider agrees with the documented findings, assessment, and plan of care. Objective - Vital Signs Vital signs: Vital Signs Temp 98.3 F 01/21/25 07:00 Pulse 92 01/21/25 07:00 Resp 17 01/21/25 08:00 BP 114/70 01/21/25 07:00 Pulse Ox 90 L 01/21/25 07:00 FiO2 Intake & Output 01/20/25 01/21/25 01/21/25 18:59 06:59 18:59 Intake Total 1020 Output Total 5 Balance 1015 Weight 71.214 kg 71.214 kg Intake: IV 1020 Output: Estimated Blood Loss 5 Other: Voiding Method Toilet # Voids 2 2 - Labs CBC & Chem 7: 01/20/25 04:41 01/20/25 04:41 Labs: Abnormal Lab Results - Last 24 Hours (Table) 01/20/25 01/20/25 01/21/25 Range/Units 17:28 20:32 06:14 POC Glucose (mg/dL) 130 H 147 H 111 H (70-110) mg/dL 01/21/25 Range/Units 12:13 POC Glucose (mg/dL) 123 H (70-110) mg/dL
--- NOTE | 2025-01-21 21:40 | HP ---
HISTORY AND PHYSICAL ADMITTING SUMMARY CHIEF COMPLAINT: Chest pain. HISTORY OF PRESENT ILLNESS: This is another of many admissions for this 55-year-old female with diabetes mellitus, hypertension and COPD. She presented to the emergency room with a chief complaint of chest pain, but has subsequently been found to have cholecystitis. REVIEW OF SYSTEMS: She has had no vomiting, fever, chills, etc. Past medical history, family history, and personal and social histories are all otherwise unremarkable or noncontributory. PHYSICAL EXAMINATION: VITAL SIGNS: Normal. HEAD, EARS, EYES, NOSE, MOUTH AND THROAT: Normal. CHEST: Demonstrates poor breath sounds with inspiratory and expiratory wheezing. CARDIAC: Normal. ABDOMEN: Soft and she is slightly tender in the epigastrium. EXTREMITIES: Normal. NEUROLOGICAL: She is intact. DIAGNOSES: She is admitted to the hospital with diagnosis of: 1. Chest pain. 2. Cholecystitis. 3. Chronic obstructive pulmonary disease. 4. History of hypertension. PLAN: 1. Bed rest. 2. IV fluids. 3. General Surgery consult. MMODTonie / LUCASN: [id number] /
--- NOTE | 2025-01-22 03:14 | PN ---
PROGRESS NOTE DATE OF SERVICE: 01/20/2025 CHIEF COMPLAINT: Cholecystitis. HISTORY OF PRESENT ILLNESS: This lady is going to the operating room today for cholecystectomy. PHYSICAL EXAMINATION: VITAL SIGNS: Normal. CHEST: Clear. CARDIAC: Normal. IMPRESSION: Cholecystitis. PLAN: Gallbladder surgery today. MMODL / IJN: [id number] /
--- NOTE | 2025-01-22 03:20 | PN ---
PROGRESS NOTE DATE OF SERVICE: 01/19/2025 CHIEF COMPLAINT: Chest pain. HISTORY OF PRESENT ILLNESS: This lady is doing fairly well and is founded her issue is cholecystitis. She is scheduled for surgery tomorrow. PHYSICAL EXAMINATION: VITAL SIGNS: Blood pressure is good. CHEST: Clear. CARDIAC: Normal. ABDOMEN: Soft, nontender. IMPRESSION: 1. Chest pain. 2. Cholecystitis. 3. Chronic obstructive pulmonary disease. PLAN: Surgery tomorrow. MMODL / IJN: [id number] /
--- NOTE | 2025-01-22 03:20 | DS ---
DISCHARGE SUMMARY CHIEF COMPLAINT: Chest pain. HISTORY OF PRESENT ILLNESS AND PHYSICAL EXAMINATION: Details of this lady's history and physical can be found in the initial workup. LABORATORY STUDIES: While she is in a hospital, she had laboratory studies, details of which can be found in the laboratory section of her chart. COURSE IN THE HOSPITAL: After admission, she was placed on bedrest, started intravenous fluids and it was determined that her pain was due to cholecystitis. She was seen by Surgery and taken to the operating room for an uneventful cholecystectomy and she was cleared for discharged on . FINAL DIAGNOSES: 1. Chest pain. 2. Abdominal pain. 3. Cholecystitis. 4. Chronic obstructive pulmonary disease. OPERATIONS: Cholecystectomy. CONSULTATIONS: Surgery. MMODL / IJN: [id number] /
== END 2025-01-21 14:10 | disposition home or self-care (01) ==
LOC: EC 22:14 → 6NMEDSUR 01-18 00:59
PROVIDERS: ADMIT Family Medicine; ATTEND Family Medicine
DX: K81.1 Chronic cholecystitis (principal); R07.89 Other chest pain; J44.89 Other specified chronic obstructive pulmonary disease; E11.9 Type 2 diabetes mellitus without complications; I10 Essential (primary) hypertension; I25.10 Atherosclerotic heart disease of native coronary artery without angina pectoris; K82.8 Other specified diseases of gallbladder; K21.9 Gastro-esophageal reflux disease without esophagitis; F17.210 Nicotine dependence, cigarettes, uncomplicated; I25.2 Old myocardial infarction; Z79.82 Long term (current) use of aspirin; Z79.84 Long term (current) use of oral hypoglycemic drugs; Z79.85 Long-term (current) use of injectable non-insulin antidiabetic drugs; Z79.02 Long term (current) use of antithrombotics/antiplatelets; Z79.899 Other long term (current) drug therapy; Z95.5 Presence of coronary angioplasty implant and graft; Z90.49 Acquired absence of other specified parts of digestive tract; Z98.890 Other specified postprocedural states; Z98.49 Cataract extraction status, unspecified eye; Z88.1 Allergy status to other antibiotic agents; Z91.041 Radiographic dye allergy status; Z91.012 Allergy to eggs; Z91.011 Allergy to milk products; Z88.8 Allergy status to other drugs, medicaments and biological substances
CPT/HCPCS: 47562; 96376 ×2; 96372; 96361; 96374; 96375; 99285; 36415 ×2; 93005; 88304; 80053 ×2; 80048; 82150; 83690; 83735; 84484 ×2; 85025 ×2; 85610; 85730; 71046; 76705; 78227; G0378 ×4; A9537; J2270 ×3; J1644; J2765; J2405 ×4; J2805; J1650; J1171; J1885

== ENCOUNTER 2025-01-24 00:59 | Observation (INO) | payer OTHER ==
[2025-01-24 01:13] VITALS: RESP 18
--- NOTE | 2025-01-24 02:27 | ED ---
General Adult HPI - General Source: patient, RN notes reviewed Mode of arrival: wheelchair Limitations: no limitations <Mimi Handley - Last Filed: 01/24/25 04:08> <Eli - Last Filed: 01/24/25 07:33> - General Chief complaint: Abdominal Pain Stated complaint: right side abd pain Time Seen by Provider: 01/24/25 01:46 - History of Present Illness Initial comments: 55-year-old female presents to the emergency department for right-sided abdominal pain. Patient notes that this has been going on since earlier today. She reports that the pain is gone in the left side. She notes that it is a sharp stabbing pain. She feels as though she has a kidney stone but also notes that she had her gallbladder out earlier this week. She denies any fever, chills. She endorses nausea and vomiting. Denies any urinary symptoms. (Mimi Handley) - Related Data Home Medications Medication Instructions Recorded Confirmed RX: Albuterol Inhaler [Ventolin 2 puff INHALATION RT-Q4H PRN 05/07/24 01/18/25 Hfa Inhaler] RX: Aspirin EC [Ecotrin Low Dose] 81 mg PO DAILY 05/07/24 01/18/25 RX: Budesonide/Glycopyr/Formoterol 2 puff INHALATION RT-BID 05/07/24 01/18/25 [Breztri Aerosphere Inhaler] RX: Dulaglutide [Trulicity] 0.75 mg SQ WE 05/07/24 01/18/25 RX: Glimepiride 4 mg PO DAILY@1200 05/07/24 01/18/25 RX: Isosorbide Mononitrate ER 30 mg PO DAILY 05/07/24 01/18/25 [Imdur] RX: Ondansetron [Zofran] 4 mg PO TID PRN 05/07/24 01/18/25 RX: Rosuvastatin Calcium [Crestor] 40 mg PO HS 05/07/24 01/18/25 RX: metFORMIN HCL 250 mg PO BID 05/07/24 01/18/25 RX: Metoprolol Tartrate [Lopressor] 50 mg PO BID-W/MEALS 08/03/24 01/18/25 RX: Furosemide [Lasix] 20 mg PO DAILY 12/28/24 01/18/25 RX: Ipratropium-Albuterol Nebulize 3 ml INHALATION RT-QID PRN 12/28/24 01/18/25 [Duoneb 0.5 mg-3 mg/3 ml Soln] Previous Rx's Medication Instructions Recorded RX: Clopidogrel [Plavix] 75 mg PO DAILY 90 Days #90 tablet 05/09/24 Docusate [Colace] 100 mg PO BID #30 capsule 01/21/25 HYDROcodone/APAP 5-325MG [[place] 1 tab PO Q6HR PRN 3 Days #12 tab 01/21/25 5-325] Allergies Allergy/AdvReac Type Severity Reaction Status Date / Time cephalexin [From Keflex] Allergy Anaphylaxis Verified 01/24/25 01:10 Iodinated Contrast Media Allergy Anaphylaxis Verified 01/24/25 01:10 Review of Systems ROS Other: All systems not noted in ROS Statement are negative. <Mimi Handley - Last Filed: 01/24/25 04:08> ROS Other: All systems not noted in ROS Statement are negative. <Eli Gatica - Last Filed: 01/24/25 07:33> ROS Statement: Those systems with pertinent positive or pertinent negative responses have been documented in the HPI. Past Medical History Past Medical History: Asthma, Coronary Artery Disease (CAD), COPD, Diabetes Mellitus, Hypertension, Myocardial Infarction (ND) Additional Past Medical History / Comment(s): kidney stones, Last Myocardial Infarction Date:: 2016 History of Any Multi-Drug Resistant Organisms: None Reported Past Surgical History: Cholecystectomy, Ear Surgery, Heart Catheterization, Heart Catheterization With Stent, Hysterectomy Additional Past Surgical History / Comment(s): 2 cardiac stents, cataract and foot surgery Past Anesthesia/Blood Transfusion Reactions: Previous Problems w/ Anesthesia Additional Past Anesthesia/Blood Transfusion Reaction / Comment(s): Wakes up early Date of Last Stent Placement:: 06/10/2017 Past Psychological History: No Psychological Hx Reported Smoking Status: Current every day smoker Past Alcohol Use History: None Reported Past Drug Use History: Marijuana - Past Family History Father Additional Family Medical History / Comment(s): MVA Mother Family Medical History: Cancer Additional Family Medical History / Comment(s): Leukemia <Mimi Handley - Last Filed: 01/24/25 04:08> General Exam Limitations: no limitations General appearance: alert, in no apparent distress Head exam: Present: atraumatic, normocephalic, normal inspection Eye exam: Present: normal appearance, PERRL, EOMI. Absent: scleral icterus, conjunctival injection, periorbital swelling ENT exam: Present: normal exam, mucous membranes moist Respiratory exam: Present: normal lung sounds bilaterally. Absent: respiratory distress, wheezes, rales, rhonchi, stridor Cardiovascular Exam: Present: regular rate, normal rhythm, normal heart sounds. Absent: systolic murmur, diastolic murmur, rubs, gallop, clicks GI/Abdominal exam: Present: soft, normal bowel sounds. Absent: distended, tenderness, guarding, rebound, rigid Extremities exam: Present: normal inspection, full ROM, normal capillary refill. Absent: tenderness, pedal edema, joint swelling, calf tenderness Neurological exam: Present: alert, oriented X3 Psychiatric exam: Present: normal affect, normal mood Skin exam: Present: warm, dry, intact, normal color. Absent: rash <Mimi Handley - Last Filed: 01/24/25 04:08> Course Vital Signs 01/24/25 01/24/25 01/24/25 01:10 05:06 07:01 Temperature 98.2 F Pulse Rate 67 61 64 Respiratory 18 18 18 Rate Blood Pressure 149/80 161/82 146/80 O2 Sat by Pulse 95 93 L 96 Oximetry Medical Decision Making - Lab Data Result diagrams: 01/24/25 03:30 <Mimi Handley - Last Filed: 01/24/25 04:08> - Lab Data Result diagrams: 01/24/25 03:30 01/24/25 03:30 <Eli Gatica - Last Filed: 01/24/25 07:33> - Medical Decision Making Was pt. sent in by a medical professional or institution (, PA, WINE CELLAR WORKER, urgent care, hospital, or alf...) When possible be specific @ -[No] Did you speak to anyone other than the patient for history (EMS, parent, family, police, friend...)? What history was obtained from this source @ -[No] Did you review nursing and triage notes (agree or disagree)? Why? @ -[I reviewed and agree with nursing and triage notes] Were old charts reviewed (outside hosp., previous admission, EMS record, old EKG, old radiological studies, urgent care reports/EKG's, alf records)? Report findings @ -[No old charts were reviewed] Differential Diagnosis (chest pain, altered mental status, abdominal pain women, abdominal pain men, vaginal bleeding, weakness, fever, dyspnea, syncope, headache, dizziness, GI bleed, back pain, seizure, CVA, palpatations, mental health, musculoskeletal)? @ -Differential Abdominal Pain Women: Appendicitis, Cholecystitis, diverticulosis, ischemic bowel, pancreatitis, hepatitis, UTI, gastroenteritis, AAA, incarcerated hernia, bowel obstruction, constipation, inflammatory bowel, hepatitis, peptic ulcer disease, splenic infarction, perforated viscus, vulvitis, ovarian torsion, PID, kidney stone, placenta abruption, this is not meant to be an all-inclusive list EKG interpreted by me (3pts min.). @ -[None] X-rays interpreted by me (1pt min.). @ -[None done] CT interpreted by me (1pt min.). @ -[CT abdomen pelvis pending] U/S interpreted by me (1pt. min.). @ -[None done] What testing was considered but not performed or refused? (CT, X-rays, U/S, labs)? Why? @ -[None] What meds were considered but not given or refused? Why? @ -[None] Did you discuss the management of the patient with other professionals (professionals i.e. , PA, WINE CELLAR WORKER, lab, RT, psych nurse, social service manager, lead net software developer, teacher, transportation security officer, correctional case manager)? Give summary @ -[No] Was smoking cessation discussed for >3mins.? @ -[No] Was critical care preformed (if so, how long)? @ -[No] Were there social determinants of health that impacted care today? How? (Homelessness, low income, unemployed, alcoholism, drug addiction, transportation, low edu. Level, literacy, decrease access to med. care, long term, rehab)? @ -[No] Was there de-escalation of care discussed even if they declined (Discuss DNR or withdrawal of care, Hospice)? DNR status @ -[No] What co-morbidities impacted this encounter? (DM, HTN, Smoking, COPD, CAD, Cancer, CVA, ARF, Chemo, Hep., AIDS, mental health diagnosis, sleep apnea, morbid obesity)? @ -[None] Was patient admitted / discharged? Hospital course, mention meds given and route, prescriptions, significant lab abnormalities, going to OR and other pe rtinent info. @ -[Patient presented to the emergency department for right-sided abdominal pain. CBC reveals no leukocytosis, hemoglobin 9.3. CMP, UA, CT abdomen pelvis pending at signout to Dr. Gatica] Undiagnosed new problem with uncertain prognosis? @ -[No] Drug Therapy requiring intensive monitoring for toxicity (Heparin, Nitro, Insulin, Cardizem)? @ -[No] Were any procedures done? @ -[No] Diagnosis/symptom? @ -[default] Acute, or Chronic, or Acute on Chronic? @ -[default] Uncomplicated (without systemic symptoms) or Complicated (systemic symptoms)? @ -[default] Side effects of treatment? @ -[No] Exacerbation, Progression, or Severe Exacerbation? @ -[No] Poses a threat to life or bodily function? How? (Chest pain, [place], ND, pneumonia, PE, COPD, DKA, ARF, appy, cholecystitis, CVA, Diverticulitis, Homicidal, Suicidal, threat to staff... and all critical care pts) @ -[No] (Mimi Handley) Was patient admitted / discharged? Hospital course, mention meds given and route, prescriptions, significant lab abnormalities, going to OR and other pertinent info. @55-year-old female, recent cholecystectomy presenting for right-sided abdominal pain. CBC reassuring. Currently pending CT abdomen pelvis. CT ab/Pelvis showed 3 mm stone in the right proximal ureter with mild right hydronephrosis. Additionally noted fatty infiltration of large bowel movement with fat stranding along the ascending and transverse colon concerning for colitis. On reassessment pt states pain is controlled with toradol. Urinalysis significant for negative nitrites however large amount of blood, large leukocyte esterase, 146 red cells, 139 white cells, occasional white blood cell clumps. No bacteria however given ureterolithiasis on CT as well as urinary urgency, will initiate IV antibiotics and admit for observation out of concern for ureterolithiasis with "current UTI. Updated patient to findings and plan for admission to which she was agreeable. Case discussed with Dr. Edmondson who kindly accepted patient for admission. Case was discussed with Dr. Huang, urology. Undiagnosed new problem with uncertain prognosis? @ -No Drug Therapy requiring intensive monitoring for toxicity (Heparin, Nitro, Insulin, Cardizem)? @ -No Were any procedures done? @ -No Diagnosis/symptom? @UTI, ureterolithiasis Acute, or Chronic, or Acute on Chronic? @Acute Uncomplicated (without systemic symptoms) or Complicated (systemic symptoms)? @Complicated Side effects of treatment? @ -No Exacerbation, Progression, or Severe Exacerbation? @ -No Poses a threat to life or bodily function? How? (Chest pain, [place], ND, pneumonia, PE, COPD, DKA, ARF, appy, cholecystitis, CVA, Diverticulitis, Homicidal, Suicidal, threat to staff... and all critical care pts) @ -Possibly, if left untreated could lead to sepsis and (Eli Gatica) - Lab Data Lab Results 01/24/25 01/24/25 01/24/25 Range/Units 03:30 03:30 06:00 WBC 8.18 (4.50-10.00) 10*3/uL RBC 4.07 L (4.10-5.20) 10*6/uL Hgb 11.8 L (12.0-15.0) g/dL Hct 36.5 L (37.2-46.3) % MCV 89.7 (80.0-97.0) fL MCH 29.0 (27.0-32.0) pg MCHC 32.3 (32.0-37.0) g/dL Plt Count 205 (140-440) 10*3/uL MPV 9.6 (9.5-12.2) fL Immature Gran % (Auto) 0.5 % Neutrophils % 77.7 % Lymphocytes % 13.8 % Monocytes % 6.4 % Eosinophils % 1.5 % Basophils % 0.1 % Immature Gran # 0.04 (0.00-0.04) 10*3/uL Neutrophils # 6.36 (1.80-7.70) 10*3/uL Lymphocytes # 1.13 (0.90-5.00) 10*3/uL Monocytes # 0.52 (0.20-1.00) 10*3/uL Eosinophils # 0.12 (0.04-0.35) 10*3/uL Basophils # 0.01 (0.00-0.10) 10*3/uL Sodium 139 (137-145) mmol/L Potassium 3.0 L (3.5-5.1) mmol/L Chloride 100 (98-107) mmol/L Carbon Dioxide 32 H (22-30) mmol/L Anion Gap 7 mmol/L BUN 5 L (7-17) mg/dL Creatinine 0.58 (0.52-1.04) mg/dL Est GFR (CKD-EPI)AfAm >90 (>60 ml/min/1.73 sqM) Est GFR (CKD-EPI)NonAf >90 (>60 ml/min/1.73 sqM) Glucose 112 H (74-99) mg/dL Calcium 8.5 (8.4-10.2) mg/dL Total Bilirubin 0.8 (0.2-1.3) mg/dL AST 22 (14-36) U/L ALT 9 (4-34) U/L Alkaline Phosphatase 135 H (38-126) U/L Total Protein 5.5 L (6.3-8.2) g/dL Albumin 3.0 L (3.5-5.0) g/dL Amylase 33 (30-110) U/L Lipase 25 (23-300) U/L Urine Color Colorless Urine Appearance Clear (Clear) Urine pH 6.5 (5.0-8.0) Ur Specific [place] >1.050 H (1.001-1.035) Urine Protein Negative (Negative) Urine Glucose (UA) Negative (Negative) Urine Ketones Negative (Negative) Urine Blood Large H (Negative) Urine Nitrite Negative (Negative) Urine Bilirubin Negative (Negative) Urine Urobilinogen <2.0 (<2.0) mg/dL Ur Leukocyte Esterase Large H (Negative) Urine RBC 146 H (0-5) /hpf Urine WBC 139 H (0-5) /hpf Urine WBC Clumps Occasional H (None) /hpf Ur Squamous Epith Cells 3 (0-4) /hpf Disposition <Mimi Handley - Last Filed: 01/24/25 04:08> <Eli Gatica - Last Filed: 01/24/25 07:33> Clinical Impression: Ureterolithiasis, UTI (urinary tract infection) Disposition: ADMITTED IP TO THIS HOSP Condition: Stable Referrals: Justin Edmondson MD [Primary Care Provider] - 1-2 days
[2025-01-24] MEDS: KETOROLAC 15 MG/ML 1 ML VIAL IVP STA ×2 (03:40→05:11)
[2025-01-24] MEDS: ONDANSETRON 4 MG/2 ML VIAL IVP STA (03:40)
[2025-01-24] MEDS: SODIUM CHLORIDE 0.9% 1,000 ML IV ONE (03:41)
[2025-01-24 03:45] LABS: Basophils # (A) 0.01 10*3/uL (0.00-0.10); Basophils % (A) 0.1 %; Eosinophils # (A) 0.12 10*3/uL (0.04-0.35); Eosinophils % (A) 1.5 %; HCT 36.5 % (37.2-46.3); HGB 11.8 g/dL (12.0-15.0); Lymphocytes # (A) 1.13 10*3/uL (0.90-5.00); Lymphocytes % (A) 13.8 %; MCH 29.0 pg (27.0-32.0); MCHC 32.3 g/dL (32.0-37.0); MCV 89.7 fL (80.0-97.0); Monocytes # (A) 0.52 10*3/uL (0.20-1.00); Monocytes % (A) 6.4 %; Neutrophils # (A) 6.36 10*3/uL (1.80-7.70); Neutrophils % (A) 77.7 %; Platelet Count 205 10*3/uL (140-440); RBC 4.07 10*6/uL (4.10-5.20); RDW 14.2 % (11.5-14.5); WBC 8.18 10*3/uL (4.50-10.00)
[2025-01-24] MEDS: diphenhydrAMINE 50 MG/ML 1 ML VIAL IVP STA (04:15)
[2025-01-24] MEDS: FAMOTIDINE 20 MG/2 ML VIAL IV STA (04:15)
[2025-01-24] MEDS: methylPREDNISolone SOD SUCCI 125 MG/2 ML VIAL IV STA (04:16)
[2025-01-24 04:31] LABS: ALT 9 U/L (4-34); AST 22 U/L (14-36); African American GFR (CKD) >90 (>60 ml/min/1.73 sqM); Albumin 3.0 g/dL (3.5-5.0); Alkaline Phosphatase 135 U/L (38-126); Amylase 33 U/L (30-110); Anion Gap 7 mmol/L; Blood Urea Nitrogen 5 mg/dL (7-17); Calcium 8.5 mg/dL (8.4-10.2); Carbon Dioxide 32 mmol/L (22-30); Chloride 100 mmol/L (98-107); Glucose 112 mg/dL (74-99); Lipase 25 U/L (23-300); Non-African American GFR(CKD) >90 (>60 ml/min/1.73 sqM); Potassium 3.0 mmol/L (3.5-5.1); Sodium 139 mmol/L (137-145); Total Protein 5.5 g/dL (6.3-8.2)
--- NOTE | 2025-01-24 05:20 | CT ---
EXAM: CT Abdomen and Pelvis With Intravenous Contrast CLINICAL HISTORY: ITS.REASON CT Reason: right sided abd pain TECHNIQUE: Axial computed tomography images of the abdomen and pelvis with intravenous contrast. CTDI is 22.4 mGy and DLP is 991.6 mGy-cm. This CT exam was performed using one or more of the following dose reduction techniques: automated exposure control, adjustment of the mA and/or kV according to patient size, and/or use of iterative reconstruction technique. COMPARISON: No relevant prior studies available. FINDINGS: ABDOMEN: Liver: Enlarged. Mildly nodular Gallbladder and bile ducts: Removed. Pancreas: Unremarkable. Spleen: Unremarkable. Adrenals: Unremarkable. Kidneys and ureters: Mild right hydronephrosis from 3 mm stone in the proximal ureter. Nonobstructive stone right kidney. Stomach and bowel: No bowel obstruction. Severe fatty infiltration of the large bowel loops with fat stranding along the ascending and transverse colon. PELVIS: Appendix: No evidence of appendicitis. Bladder: Unremarkable. Reproductive: Unremarkable. ABDOMEN and PELVIS: Intraperitoneal space: Unremarkable. Bones/joints: No acute fractures. Soft tissues: Unremarkable. Vasculature: No abdominal aortic aneurysm. Lymph nodes: No enlarged lymph nodes. IMPRESSION: 1. Mild right hydronephrosis from 3 mm stone in the proximal ureter. Nonobstructive stone right kidney. 2. Severe fatty infiltration of the large bowel loops with fat stranding along the ascending and transverse colon. Concerning for colitis.
[2025-01-24] MEDS: POTASSIUM CHLORIDE ER 20 MEQ TAB.ER PO STA (05:45)
[2025-01-24 06:19] LABS: Bilirubin,Urine Negative (Negative); Blood,Urine Large (Negative); Color,Urine Colorless; Glucose,Urine (UA) Negative (Negative); Ketones,Urine Negative (Negative); Leukocyte Esterase,Urine Large (Negative); Nitrite,Urine Negative (Negative); PH, Urine 6.5 (5.0-8.0); Protein,Urine Negative (Negative); RBC,Urine 146 /hpf (0-5); Squamous Epithelial Cell,Urine 3 /hpf (0-4); Urobilinogen,Urine <2.0 mg/dL (<2.0); WBC,Urine 139 /hpf (0-5)
[2025-01-24 06:20] LABS: Specific Gravity,Urine >1.050 (1.001-1.035)
[2025-01-24] MEDS ORDERED: ONDANSETRON 4 MG/2 ML VIAL IVP PRN (07:20)
[2025-01-24] MEDS ORDERED: ACETAMINOPHEN TAB 325 MG TAB PO PRN (07:20)
[2025-01-24] MEDS ORDERED: NALOXONE 0.4 MG/ML 1 ML VIAL IV PRN (07:20)
[2025-01-24] MEDS: LEVOFLOXACIN 750MG-D5W PMX 750 MG in DEXTROSE/WATER 1 150ML.BAG IVPB STA (07:57)
[2025-01-24] MEDS: SODIUM CHLORIDE 0.9% 1,000 ML IV SCH (07:58)
[2025-01-24] MEDS: PANTOPRAZOLE 40 MG/10 ML VIAL IV SCH (08:00)
--- NOTE | 2025-01-24 09:31 | P.GSCN ---
History of Present Illness Consult date: 01/24/25 History of present illness: 65-year-old female with a history of kidney stones presents with persistent right flank pain that is worsened. She was identified to have a 3 mm proximal ureteral stone. Her urine is inflamed. She is afebrile her white count is normal. Because of the pain she is admitted to the hospital. She states that she has a previous history of stones but none in the last couple years. She has seen in the past for stones but none in the last couple of years. She has had intermittent discomfort for the last several months. Review of Systems All systems: negative - Constitutional Denies fever, Denies weight loss - EENT Eyes: denies blurred vision Ears, nose, mouth and throat: Denies dysphagia - Cardiovascular Denies chest pain, Denies shortness of breath - Respiratory Denies cough, Denies 7 - Gastrointestinal Reports as per HPI - Genitourinary Genitourinary: Denies dysuria, Denies hematuria - Integumentary Denies rash, Denies unusual bruising - Neurological Denies headaches, Denies syncope - Hematologic/Lymphatic Denies easy bleeding, Denies easy bruising Past Medical History Past Medical History: Asthma, Coronary Artery Disease (CAD), COPD, Diabetes Mellitus, Hypertension, Myocardial Infarction ([place]) Additional Past Medical History / Comment(s): kidney stones, Last Myocardial Infarction Date:: 2016 History of Any Multi-Drug Resistant Organisms: None Reported Past Surgical History: Cholecystectomy, Ear Surgery, Heart Catheterization, Heart Catheterization With Stent, Hysterectomy Additional Past Surgical History / Comment(s): 2 cardiac stents, cataract and foot surgery Past Anesthesia/Blood Transfusion Reactions: Previous Problems w/ Anesthesia Additional Past Anesthesia/Blood Transfusion Reaction / Comm: Wakes up early Date of Last Stent Placement:: 06/10/2017 Past Psychological History: No Psychological Hx Reported Smoking Status: Current every day smoker Past Alcohol Use History: None Reported Past Drug Use History: Marijuana - Past Family History Father Additional Family Medical History / Comment(s): MVA Mother Family Medical History: Cancer Additional Family Medical History / Comment(s): Leukemia Medications and Allergies Home Medications Medication Instructions Recorded Confirmed Type Albuterol Inhaler [Ventolin Hfa 2 puff INHALATION RT-Q4H PRN 05/07/24 01/24/25 History Inhaler] Aspirin EC [Ecotrin Low Dose] 81 mg PO DAILY 05/07/24 01/24/25 History Budesonide/Glycopyr/Formoterol 2 puff INHALATION RT-BID 05/07/24 01/24/25 History [Breztri Aerosphere Inhaler] Dulaglutide [Trulicity] 0.75 mg SQ WE 05/07/24 01/24/25 History Glimepiride 4 mg PO DAILY@1200 05/07/24 01/24/25 History Isosorbide Mononitrate ER [Imdur] 30 mg PO DAILY 05/07/24 01/24/25 History Ondansetron [Zofran] 4 mg PO TID PRN 05/07/24 01/24/25 History Rosuvastatin Calcium [Crestor] 40 mg PO HS 05/07/24 01/24/25 History metFORMIN HCL 250 mg PO BID 05/07/24 01/24/25 History Clopidogrel [Plavix] 75 mg PO DAILY 90 Days #90 tablet 05/09/24 01/24/25 Rx Metoprolol Tartrate [Lopressor] 50 mg PO BID-W/MEALS 08/03/24 01/24/25 History Furosemide [Lasix] 20 mg PO DAILY 12/28/24 01/24/25 History Ipratropium-Albuterol Nebulize 3 ml INHALATION RT-QID PRN 12/28/24 01/24/25 History [Duoneb 0.5 mg-3 mg/3 ml Soln] Docusate [Colace] 100 mg PO BID #30 capsule 01/21/25 01/24/25 Rx HYDROcodone/APAP 5-325MG [[place] 1 tab PO Q6HR PRN 3 Days #12 tab 01/21/25 01/24/25 Rx 5-325] Allergies Allergy/AdvReac Type Severity Reaction Status Date / Time cephalexin [From Keflex] Allergy Anaphylaxis Verified 01/24/25 01:10 Iodinated Contrast Media Allergy Anaphylaxis Verified 01/24/25 01:10 Surgical - Exam Vital Signs Temp Pulse Resp BP Pulse Ox 98.2 F 67 18 149/80 95 01/24/25 01:10 01/24/25 01:10 01/24/25 01:10 01/24/25 01:10 01/24/25 01:10 - General well developed, well nourished, no distress - Eyes normal ocular movement, no icteric - ENT no hearing loss, no congestion - Neck no masses, trachea midline - Respiratory normal respiratory effort, clear to auscultation - Abdomen Abdomen: soft, non tender, tender, no guarding, no rigid, no rebound - Integumentary no rash, no abnormal pigmentation - Neurologic no disoriented, no combative - Psychiatric oriented to time, oriented to person, oriented to place, speech is normal, memory intact Results - Labs 01/24/25 03:30 01/24/25 03:30 Abnormal Lab Results - Last 24 Hours (Table) 01/24/25 01/24/25 01/24/25 Range/Units 03:30 03:30 06:00 RBC 4.07 L (4.10-5.20) 10*6/uL Hgb 11.8 L (12.0-15.0) g/dL Hct 36.5 L (37.2-46.3) % Potassium 3.0 L (3.5-5.1) mmol/L Carbon Dioxide 32 H (22-30) mmol/L BUN 5 L (7-17) mg/dL Glucose 112 H (74-99) mg/dL Alkaline Phosphatase 135 H (38-126) U/L Total Protein 5.5 L (6.3-8.2) g/dL Albumin 3.0 L (3.5-5.0) g/dL Ur Specific Walker >1.050 H (1.001-1.035) Urine Blood Large H (Negative) Ur Leukocyte Esterase Large H (Negative) Urine RBC 146 H (0-5) /hpf Urine WBC 139 H (0-5) /hpf Urine WBC Clumps Occasional H (None) /hpf Diabetes panel 01/24/25 Range/Units 03:30 Sodium 139 (137-145) mmol/L Potassium 3.0 L (3.5-5.1) mmol/L Chloride 100 (98-107) mmol/L Carbon Dioxide 32 H (22-30) mmol/L BUN 5 L (7-17) mg/dL Creatinine 0.58 (0.52-1.04) mg/dL Glucose 112 H (74-99) mg/dL Calcium 8.5 (8.4-10.2) mg/dL AST 22 (14-36) U/L ALT 9 (4-34) U/L Alkaline Phosphatase 135 H (38-126) U/L Total Protein 5.5 L (6.3-8.2) g/dL Albumin 3.0 L (3.5-5.0) g/dL Calcium panel 01/24/25 Range/Units 03:30 Calcium 8.5 (8.4-10.2) mg/dL Albumin 3.0 L (3.5-5.0) g/dL Pituitary panel 01/24/25 Range/Units 03:30 Sodium 139 (137-145) mmol/L Potassium 3.0 L (3.5-5.1) mmol/L Chloride 100 (98-107) mmol/L Carbon Dioxide 32 H (22-30) mmol/L BUN 5 L (7-17) mg/dL Creatinine 0.58 (0.52-1.04) mg/dL Glucose 112 H (74-99) mg/dL Calcium 8.5 (8.4-10.2) mg/dL Adrenal panel 01/24/25 Range/Units 03:30 Sodium 139 (137-145) mmol/L Potassium 3.0 L (3.5-5.1) mmol/L Chloride 100 (98-107) mmol/L Carbon Dioxide 32 H (22-30) mmol/L BUN 5 L (7-17) mg/dL Creatinine 0.58 (0.52-1.04) mg/dL Glucose 112 H (74-99) mg/dL Calcium 8.5 (8.4-10.2) mg/dL Total Bilirubin 0.8 (0.2-1.3) mg/dL AST 22 (14-36) U/L ALT 9 (4-34) U/L Alkaline Phosphatase 135 H (38-126) U/L Total Protein 5.5 L (6.3-8.2) g/dL Albumin 3.0 L (3.5-5.0) g/dL - Imaging CT scan - abdomen: report reviewed, image reviewed CT scan - pelvis: report reviewed, image reviewed Assessment and Plan Assessment: Impression: Right proximal ureteral stone with colic. Possible urinary tract infection. Recommendations: The patient admitted for IV fluids IV antibiotics and pain control. Since she is afebrile with a normal white count she will be treated with antibiotics and then decision on treatment of the stone will be made secondarily. Options would include spontaneous passage with antibiotics pending culture. Double-J catheter and eventual stone removal. Eventual shockwave lithotripsy. She will again be reassessed in the morning.
[2025-01-24] MEDS: KETOROLAC 15 MG/ML 1 ML VIAL IVP PRN (09:57)
[2025-01-24 13:20] VITALS: BP 165/70; PULSE 89; TEMP 98.9
[2025-01-24] MEDS ORDERED: ETODOLAC 400 MG TAB PO SCH (21:00)
--- NOTE | 2025-01-25 03:41 | HP ---
HISTORY AND PHYSICAL REVIEW OF SYSTEMS: Otherwise, unremarkable and noncontributory. Past medical history, family history, personal and social histories are all otherwise unchanged or noncontributory. PHYSICAL EXAMINATION: VITAL SIGNS: Normal. HEAD, EARS, EYES, NOSE, MOUTH, AND THROAT: Normal. GENERAL: She is slightly pale. CHEST: Reveals decreased breath sounds with scattered rales and inspiratory and expiratory wheezing. CARDIAC: Normal. ABDOMEN: Soft, nontender. She is tender in the right flank. IMPRESSION: 1. Right ureteral calculus. 2. Recent cholecystitis. 3. Chronic obstructive pulmonary disease. 4. Type 2 diabetes. 5. History of coronary artery disease. PLAN: 1. Bedrest. 2. IV fluids. 3. Analgesics. 4. . MMODL / IJN: [id number] /
--- NOTE | 2025-01-25 03:43 | DS ---
DISCHARGE SUMMARY CHIEF COMPLAINT: Right flank pain. HISTORY OF PRESENT ILLNESS AND PHYSICAL EXAMINATION: Details of this lady's history and physical can be found in the initial workup. LABORATORY STUDIES: While she was in the hospital, she had laboratory studies, the details of which can be found in the laboratory section of her chart. COURSE IN THE HOSPITAL: After admission, she was placed on bedrest, started on intravenous fluids and analgesics. Pain was under control. She was anxious to be discharged. It was felt that she could go home on her usual activity, medication, and NSAID for pain, and she will follow up in several days. FINAL DIAGNOSES: 1. Flank pain. 2. Ureteral calculus. 3. Chronic obstructive pulmonary disease. 4. Coronary artery disease. 5. Diabetes. 6. Recent cholecystectomy. OPERATIONS: None. CONSULTATIONS: None. MMODL / LUCASN: [id number] /
== END 2025-01-24 13:18 | disposition home or self-care (01) ==
LOC: EC 00:59 → 1SOBS 07:24
PROVIDERS: ADMIT Family Medicine; ATTEND Family Medicine
DX: N20.1 Calculus of ureter (principal); N39.0 Urinary tract infection, site not specified; J44.89 Other specified chronic obstructive pulmonary disease; I25.10 Atherosclerotic heart disease of native coronary artery without angina pectoris; E11.9 Type 2 diabetes mellitus without complications; I10 Essential (primary) hypertension; I25.2 Old myocardial infarction; F17.200 Nicotine dependence, unspecified, uncomplicated; Z87.442 Personal history of urinary calculi; Z95.5 Presence of coronary angioplasty implant and graft; Z79.899 Other long term (current) drug therapy; Z79.82 Long term (current) use of aspirin; Z79.84 Long term (current) use of oral hypoglycemic drugs; Z79.02 Long term (current) use of antithrombotics/antiplatelets; Z79.85 Long-term (current) use of injectable non-insulin antidiabetic drugs; Z88.1 Allergy status to other antibiotic agents
CPT/HCPCS: 96376; 96361; 96365; 96366; 96375; 99285; 36415; 80053; 82150; 83690; 85025; 81001; 87086; 74177; G0378; J1200; J2405; J1956; J1885; Q9967; J2919; J2470; J1308